=== PATIENT | male | born 1955 | race Caucasian/White ===

== ENCOUNTER 2019-08-28 20:52 | Emergency (ER) | payer OTHER, SELFPAY ==
[2019-08-28 21:23] VITALS: BP 138/86; PULSE 94; RESP 18; TEMP 36.6; O2SAT 95; BMI 28.5
[2019-08-28 22:44] LABS: Basophils # 0.1 10^3/uL (0.0-0.1); Basophils % 0.5 %; Eosinophils # 0.2 10^3/uL (0.0-0.8); Eosinophils % 2.4 %; Hematocrit 37.8 % (42.0-52.0); Hemoglobin 12.8 g/dL (11.7-16.6); Lymphocytes # 2.1 10^3/uL (0.8-4.8); Lymphocytes % 20.9 %; Mean Corpuscular HGB Conc 33.9 g/dL (30.0-36.0); Mean Corpuscular Hemoglobin 29.6 pg (28.0-34.0); Mean Corpuscular Volume 87.3 fL (80-94); Mean Platelet Volume 10.5 fL (7.4-10.4); Monocytes # 0.7 10^3/uL (0.2-0.9); Monocytes % 6.8 %; Neutrophils # 6.8 10^3/uL (1.8-7.7); Neutrophils % 69.1 %; Nucleated Red Blood Cells % 0 %; Platelet Count 216 10^3/cmm (130-400); Red Blood Count 4.33 10^6/uL (4.1-5.3); Red Cell Distribution Width 13.4 % (12.1-15.1); White Blood Count 9.9 10^3/uL (4.0-10.0)
[2019-08-28 22:45] LABS: Add RBC Morph No
[2019-08-28 23:02] LABS: Alanine Aminotransferase 23 U/L (0-41); Albumin Level 4.7 g/dL (3.5-5.2); Alkaline Phosphatase 76 IU/L (40-130); Anion Gap 18.7 (5-19); Aspartate Amino Transferase 21 U/L (0-40); Blood Urea Nitrogen 19 mg/dL (8-23); Calcium 10.1 mg/Dl (8.8-10.2); Carbon Dioxide 26 mmol/L (22-29); Chloride 101 mmol/L (98-107); Globulin 2.9 g/dL (1.3-4.6); Glomerular Filtration Rate 85.2 mL/min (90-130); Glucose 123 mg/dL (74-106); Potassium 3.7 mmol/L (3.5-5.1); Sodium 142 mmol/L (136-145); Total Bilirubin 0.3 mg/dL (0.15-1.2); Total Protein 7.6 g/dL (6.6-8.7)
--- NOTE | 2019-08-29 00:04 | ED_ITS ---
HPI - General Adult General: Chief complaint: General Medical, Adult Stated complaint: POSS OD Time Seen by Provider: 08/29/19 00:03 History of Present Illness: MD complaint: pt c/o pain in back, has rx of hydromorhone and he shot it up today, wor Associated symptoms: Deny chest pain, dyspnea, headache(s), nausea, rash or vomiting Review of Systems Const: Denies: fever, chills or body aches Eyes: Denies: change in vision or blurry vision ENMT: Denies: throat pain or nasal congestion Card: Denies: chest pain or shortness of breath on exertion Resp: Denies: shortness of breath, productive cough or non-productive cough GI: Denies: abdominal pain, nausea or vomiting : Denies: difficulty urinating Musc: Reports: back pain; Denies: extremity pain Skin/Breast: Denies: rash Neuro: Denies: headache Psych: Denies: anxiety or depression Rajiv/Lymph: Denies: easy bruising PFSH ED PFSH: Statuses (acute, chronic, etc) shown below reflect problem list status as previously entered and may not be historically accurate Social History Smoking and tobacco status: never smoked Physical Exam Const: COMMON NORMALS: no apparent distress, average body habitus and oriented x3 HENMT: COMMON NORMALS: normocephalic HEAD & SCALP: normal to inspection and normocephalic FACE & SINUS: normal facial exam Eye: COMMON NORMALS: conjunctivae normal GENERAL EYE: normal appearance of both eyes CONJUNCTIVA: Yes conjunctivae normal Neck/C-Spine: COMMON NORMALS: no JVD Chest: COMMONS NORMALS: inspection of chest normal Resp: COMMON NORMALS: normal respiratory effort and clear to auscultation bilaterally AUSCULTATION: clear to auscultation bilaterally Cardio: COMMON NORMALS: no JVD; negative for regular rate and negative for regular rhythm RATE: abnormal rate RHYTHM: abnormal rhythm and abnormal rhythm GI: COMMON NORMALS: normal to inspection, nondistended, normoactive bowel sounds Extremity: COMMON NORMALS: normal to inspection and full ROM Neuro: COMMON NORMALS: oriented x3 Course Vital Signs: Vital signs: Vital Signs Temperature 97.8 F 08/28/19 21:23 Pulse Rate 79 08/29/19 00:20 Respiratory Rate 16 08/29/19 00:20 Blood Pressure 143/93 08/29/19 00:20 Pulse Oximetry 97 08/29/19 00:20 [facility] - General Adult Lab Data: Labs: Lab Results 08/28/19 08/28/19 Range/Units 22:33 22:33 WBC 9.9 (4.0-10.0) 10^3/ uL RBC 4.33 (4.1-5.3) 10^6/u L Hgb 12.8 (11.7-16.6) g/dL Hct 37.8 L (42.0-52.0) % MCV 87.3 (80-94) fL MCH 29.6 (28.0-34.0) pg MCHC 33.9 (30.0-36.0) g/dL RDW 13.4 (12.1-15.1) % Plt Count 216 (130-400) 10^3/c mm MPV 10.5 H (7.4-10.4) fL Neut % (Auto) 69.1 % Lymph % (Auto) 20.9 % [place] % (Auto) 6.8 % Eos % (Auto) 2.4 % Baso % (Auto) 0.5 % Neut # (Auto) 6.8 (1.8-7.7) 10^3/u L Lymph # (Auto) 2.1 (0.8-4.8) 10^3/u L [place] # (Auto) 0.7 (0.2-0.9) 10^3/u L Eos # (Auto) 0.2 (0.0-0.8) 10^3/u L Baso # (Auto) 0.1 (0.0-0.1) 10^3/u L Nucleated RBC % (a uto) 0 % Nucleated RBCs # 0.0 /100WBC Sodium 142 (136-145) mmol/L Potassium 3.7 (3.5-5.1) mmol/L Chloride 101 (98-107) mmol/L Carbon Dioxide 26 (22-29) mmol/L Anion Gap 18.7 (5-19) BUN 19 (8-23) mg/dL Creatinine 0.9 (0.7-1.2) mg/dL GFR Calculation 85.2 L (90-130) mL/min Glucose 123 H (74-106) mg/dL Calcium 10.1 (8.8-10.2) mg/Dl Total Bilirubin 0.3 (0.15-1.2) mg/dL AST 21 (0-40) U/L ALT 23 (0-41) U/L Alkaline Phosphata se 76 (40-130) IU/L Total Protein 7.6 (6.6-8.7) g/dL Albumin 4.7 (3.5-5.2) g/dL Globulin 2.9 (1.3-4.6) g/dL Discharge Plan Discharge Patient Disposition: Home, Self-Care Condition: Stable Prescriptions: No Action hydromorphone 2 mg Tablet 2 mg PO DAILY RF: 0 Referrals: Chau Holloway DO [Primary Care Provider] - Discharge Diet: Usual diet Discharge Activity: Resume usual activity Patient Instructions: Narcotic Abuse (ED) Activity Restrictions/Additional Instructions: do not inject hydromorphone into veins or body Coding Level of Care Code ED Drug Abuse Resistance Education Officer for Leonila Aparicio Exam Problem Focused
--- NOTE | 2019-08-29 00:08 | ECG_ITS ---
Measurements Intervals [place] Rate: 76 P: 67 WI: 206 QRS: 82 QRSD: 97 T: 51 QT: 414 QTc: 466 SINUS RHYTHM WITH FREQUENT VENTRICULAR PREMATURE COMPLEXES ABNORMAL RHYTHM ECG Compared to ECG 12/16/2018 11:23:09 Ventricular premature complex(es) now present Sinus bradycardia no longer present Prolonged QT interval no longer present Electronically Signed On 08-29-2019 6:45:53 BOTTLE PACKER by Estrella Coleman M.D. [email or web address]
[2019-08-29 00:20] VITALS: BP 143/93; PULSE 79; RESP 16; O2SAT 97
[2019-08-29 00:32] VITALS: BP 140/80; PULSE 76; RESP 18; TEMP 37; O2SAT 98
== END 2019-08-29 00:35 | disposition home or self-care (01) ==
PROVIDERS: Emergency Provider Nurse Practitioner Family; Family Provider Emergency Medicine Emergency Medical Services; PCP Emergency Medicine Emergency Medical Services
DX: M54.9 Dorsalgia, unspecified (principal); F11.10 Opioid abuse, uncomplicated
CPT/HCPCS: 36415; 80053; 85025; 93005; 99281

== ENCOUNTER 2019-08-29 10:35 | Outpatient (CLI) | payer OTHER, SELFPAY ==
--- NOTE | 2019-08-29 10:45 | XR_ITS ---
WS: [id number] CERVICAL SPINE 2 VIEWS HISTORY: Cervical fusion. COMPARISON: 07/30/2019 Anterior cervical fusion with interbody spacer at C3-4 similar in appearance to the prior study. No l ucency around the hardware or displacement. No subsidence. Mild straightening of the normal cervical lordosis. Cervical osteophytes are stable. Soft tissues are normal. XR/XR cervical spine 2V* [id number] IMPRESSION: Stable anterior cervical fusion with interbody spacer at C3-4.
== END 2019-08-29 10:36 | disposition home or self-care (01) ==
LOC: WPI 10:39
PROVIDERS: Family Provider Emergency Medicine Emergency Medical Services; PCP Emergency Medicine Emergency Medical Services; Visit Provider Licensed Practical Nurse
DX: Z98.1 Arthrodesis status (principal)
CPT/HCPCS: 72040

== ENCOUNTER 2019-09-13 10:18 | Day surgery (SDC) | payer OTHER, SELFPAY ==
[2019-09-13 10:37] VITALS: BP 134/91; PULSE 106; RESP 18; TEMP 36.6; O2SAT 99
[2019-09-13 10:38] VITALS: BMI 28.2
[2019-09-13] MEDS: sodium chloride 0.9% 1,000 ML 30 ML IV (11:03)
--- NOTE | 2019-09-13 11:56 | ANES.PREANES ---
Pre-Anesthetic Assessment Pre-Anesthetic Assessment: Height/Weight: Height 1.83 m Weight 94.347 kg Temp Pulse Resp BP Pulse Ox 97.9 F 106 H 18 134/91 99 09/13/19 10:37 09/13/19 10:37 09/13/19 10:37 09/13/19 10:37 09/13/19 10:37 Preop Diagnosis: Left ankle exostosis Proposed Procedure: Operation Date: 09/13/19 12:00 Proposed Procedures p Exostectomy Left ankle(Left) - Crow Sanches DPM Last intake: Intake Last Liquid Date 09/12/19 Last Solid Date 09/12/19 Exam: Pre-Anes Outpt Exam: alert and oriented x 3 Airway: Submandibular: WNL Cervical ROM: Other MP: 2 Additional comments: poor dentition CV/HEM: CV/HEM: Afib, Arrythmia and HTN Comments: 20 years A-fib 08/15 medically cardioverted stress test negative GI: GI: GERD Comments: well controlled Musc/skel: Musc/skel: Lower Back Pain Comments: left radiculopathy Neuropsych: Neuropsych: Anxiety Meds/Allergies Current Medications: Current Medications Generic Name Dose Route Start Last Admin Trade Name Freq PRN Reason Stop Dose Admin Sodium Chloride 1,000 mls @ 30 ml s/hr 09/13/19 10:45 09/13/19 11:03 Sodium Chloride 0.9% IV 09/14/19 10:44 30 mls/hr .Q24H ANTONIO Administration PFSH Anesthesia PFSH: Medical History (Updated 09/12/19 @ 20:03 by Crow Sanches DPM) Anxiety (Acute) Back pain (Acute) Depressive disorder (Acute) Diabetes (Acute) Hypertension (Acute) Neck pain (Acute) Surgical History Post-operative state (Chronic) 07/18/2019 C3-C4 ACDFF Status post cervical spinal fusion (Chronic) 07/18/2019 C3-C4 ACDFF Social History Smoking and tobacco status: never smoked Alcohol intake: current Alcohol type: beer Household members: spouse Marital status: Current occupational status: disabled Data Anesthesia Cardiac Studies: No Data to Display
[2019-09-13 13:08] VITALS: BP 114/79; PULSE 70; RESP 18; TEMP 36.6; O2SAT 96
[2019-09-13 13:38] VITALS: BP 121/84; PULSE 88; RESP 18; O2SAT 98
--- NOTE | 2019-09-15 12:28 | P.OP_ITS ---
Operative Report Date of procedure: 09/15/19 Pre-op Diagnosis: Left ankle exostosis Post-op diagnosis: same Procedure Done: Left distal fibula exostectomy CPT 80313 Implants: None Specimens removed/disposition: None Pathology: none sent Surgeon: Crow Sanches Cook Cold Meat: Olivia Anesthesia: MAC Estimated blood loss (mL): 2 IV fluids (mL): 0 Urine output (mL): 0 Complications: None Findings: Significant bony exostosis left distal fibula. Condition: stable Disposition: PACU Brief History: See preoperative H&P Procedure: Under mild sedation the patient was brought to the operating room and placed on the operating table in supine position. A timeout was performed. Anesthesia was administered by the anesthesia service. Local anesthesia was injected by myself consisting of a proximal field block utilizing 0.5% Marcaine plain total of 20 cc left lateral leg. Well-padded pneumatic tourniquet was applied high calf left. Left lower extremity was then scrubbed, prepped and draped utilizing normal aseptic technique. Left lower extremity was then examined a weighted with a Esmarch bandage and the tourniquet was inflated to 250 mmHg. Attention was directed to the left lateral distal fibula where a impressive bony exostosis was both visualized and palpated. At the distal fibula directly over the exostosis a linear longitudinal incision was made with a #15 blade. Dissection was carried down through subcutaneous tissue utilizing a combination of blunt and sharp technique. Care was taken to retract and preserve neurovascular and tendinous structures. Bleeders were ligated and cauterized as necessary. Periosteal incision was made revealing enthesophytes, chondral bodies and exostosis at the left distal fibula which was impressive both at the anterior extending at the inferior and posterior borders of the distal fibula. Multiple bodies were noted to be loose these were sharply excised and passed from the operative field. Utilizing a bone rondure the distal fibula was recontoured to its normal anatomy and removed of all bony exostosis and hypertrophic growth. Utilizing direct palpation and direct visualization I was satisfied with the remodeling of the distal fibula with no remaining osseous prominences and normal anatomy reestablished. Incision site was flushed with copious amounts of sterile saline solution. Bone wax applied directly to the distal fibula at the lateral wall. Periosteal and deep structures were closed with 3-0 Vicryl. Subcutaneous tissue closed with 4-0 Vicryl. Skin closed with 4-0 nylon. Adaptic, 4 x 4's, Kerlix and Taiwo wrap were applied as dressings. Cam boot was applied this was patient's personal cam boot which he brought with him to surgery today. Tourniquet was deflated and a prompt hyperemic response was noted to the distal digits of the left foot. Patient tolerated the procedure well and was transferred to the PACU with vital signs stable and vascular status intact. Following a period of post operative monitoring he will be discharged home he may be weightbearing as tolerated however advised to decrease his activity and elevate his left foot while at rest. He is to keep his postoperative dressings clean, dry and intact until his follow-up visit in 1 week at podiatry clinic on August 20. Patient given a prescription for oxycodone 10 mg to be taken as needed every 4-6 hours for pain. He was informed that he will need to disclose this to his pain management clinic and provider in [facility].
== END 2019-09-13 14:20 | disposition home or self-care (01) ==
PROVIDERS: Family Provider Emergency Medicine Emergency Medical Services; PCP Emergency Medicine Emergency Medical Services; Visit Provider Podiatrist Foot & Ankle Surgery
PROC: (CPT 28288; principal; 2019-09-13 12:00)
DX: M89.8X7 Other specified disorders of bone, ankle and foot (principal); Z79.891 Long term (current) use of opiate analgesic; F41.9 Anxiety disorder, unspecified; I10 Essential (primary) hypertension; E11.9 Type 2 diabetes mellitus without complications; F32.9 Major depressive disorder, single episode, unspecified; Z98.1 Arthrodesis status; I48.91 Unspecified atrial fibrillation; K21.9 Gastro-esophageal reflux disease without esophagitis
CPT/HCPCS: 27641; 12345; 96365; J0690; J2001; J2704; J3010; J3490; J7030

== ENCOUNTER 2019-10-08 14:58 | Outpatient (CLI) | payer OTHER, SELFPAY ==
--- NOTE | 2019-10-08 15:20 | CT_ITS ---
WS: [id number] CT CERVICAL SPINE HISTORY: S/P CERVICAL SPINAL FUSION TECHNIQUE: Contiguous 2.5 mm axial imaging performed through the entire cervical spine. Sagittal and coronal reformats also performed. All CT scans at [facility] use at least one of these do se optimization techniques: automated exposure control; mA and/or kV adjustment per patient size (inc ludes targeted exams where dose is matched to clinical indication); or iterative reconstruction. DLP: 1894.88 mGycm COMPARISON: 04/30/2019 Straightening of the normal cervical lordosis with anterior cervical fusion at C3-4 interbody spacer. No lucency or hardware failure. Disc height is preserved at C3-4. C2-C3: Mild osteophytic ridging without stenosis. RIGHT facet joint bony fusion. C3-C4: Osteophytic ridging and facet arthropathy. Moderate bilateral foraminal stenosis. C4-C5: Severe facet joint arthropathy on the LEFT with severe LEFT foraminal narrowing. C5-C6: Bilateral facet joint arthropathy with only mild foraminal narrowing. C6-C7: Osteophytic ridging with mild central foraminal narrowing. C7-T1: Mild osteophytic ridging with mild foraminal narrowing. Lung apices are clear. CT/CT cervical spin wo con* [id number] IMPRESSION: 1. Interval anterior cervical fusion with interbody spacer at C3-4. Disc space height is restored. 2. Bony fusion across the RIGHT C2-3 facet joint. 3. Multilevel foraminal stenoses as above. Similar to prior studies.
== END 2019-10-08 14:59 | disposition home or self-care (01) ==
LOC: RADWPI 15:05
PROVIDERS: PCP Emergency Medicine Emergency Medical Services; Visit Provider Licensed Practical Nurse
DX: Z98.1 Arthrodesis status (principal); M48.00 Spinal stenosis, site unspecified
CPT/HCPCS: 72125

== ENCOUNTER → 2019-10-17 13:49 | Outpatient (BNVA) | payer OTHER, SELFPAY | PROVIDERS: Family Provider Emergency Medicine Emergency Medical Services; PCP Emergency Medicine Emergency Medical Services; Visit Provider Psychiatry & Neurology Psychiatry | DX: F41.1 Generalized anxiety disorder (principal); F33.1 Major depressive disorder, recurrent, moderate; F14.21 Cocaine dependence, in remission; F12.21 Cannabis dependence, in remission | CPT/HCPCS: 99204 ==

== ENCOUNTER 2019-10-18 08:34 | Outpatient (CLI) | payer OTHER, SELFPAY ==
--- NOTE | 2019-10-18 08:45 | MR_ITS ---
WS: [id number] MRI CERVICAL SPINE NONCONTRAST TECHNIQUE: Sagittal T1, T2 and STIR imaging. Axial T2, gradient, and fiesta imaging. CLINICAL INFORMATION: cervical pain COMPARISON: CT October 08, 2019 FINDINGS: Straightening of the normal cervical lordosis. Anterior cervical fusion C3-C4 with interbody fusion. C2-C3: Mild right and no significant left foraminal narrowing. Mild facet arthropathy. Spinal canal i s patent. C3-C4: Anterior interbody cervical fusion. Moderate left greater than right bony foraminal narrowing. Mild facet arthropathy. Central canal is patent. C4-C5: Minimal disc bulging with osteophytic ridging. Advanced left facet arthropathy. Moderate to se fermin left and moderate right bony foraminal narrowing. Spinal canal is patent. C5-C6: Minimal disc bulging. Moderate to advanced left facet arthropathy. Moderate left and mild righ t bony foraminal narrowing. Spinal canal is patent. C6-C7: Mild disc osteophyte complex with endplate ridging. Mild left and no significant right foramin al narrowing. Mild/moderate facet arthropathy. Spinal canal is patent. C7-T1: No significant disc bulging. Spinal canal is patent. Mild left and no significant right forami nal narrowing. T1-T2: Normal. Visualized brain stem structures: Normal. Prevertebral soft tissues: Normal. MR/MR cervical spin wo con* [id number] IMPRESSION: 1. Straightening of the normal cervical lordosis. Anterior interbody cervical fusion C3-C4. 2. No significant central canal stenosis. 3. Moderate bony foraminal narrowing worse at left C3-C4, left C4-C5, left C5- C6. 4. Moderate to advanced facet arthropathy left C4-C5 and left C5-C6.
== END 2019-10-18 08:35 | disposition home or self-care (01) ==
LOC: RADSHAW 08:37
PROVIDERS: Family Provider Emergency Medicine Emergency Medical Services; PCP Emergency Medicine Emergency Medical Services; Visit Provider Specialist
DX: Z98.1 Arthrodesis status (principal)
CPT/HCPCS: 72141

== ENCOUNTER 2019-11-07 08:03 | Outpatient (CLI) | payer OTHER, SELFPAY ==
--- NOTE | 2019-11-07 08:00 | MR_ITS ---
WS: [id number] MRI RIGHT SHOULDER NONCONTRAST TECHNIQUE: Sagittal T2, coronal T1, T2 and proton density imaging. Axial gradient PDE imaging. CLINICAL INFORMATION: shoulder pain FINDINGS: Moderate degenerative arthritis AC joint with evidence of prior postoperative changes and resection o f the distal clavicle. Mild downsloping of the acromion. Mild narrowing of the subacromial space. Sma ll undersurface tear measuring 4 mm at the supraspinatus insertion. Additional T2 signal abnormality with tendinopathy involving the infraspinatus. Tiny intrasubstance tear involving the infraspinatus d istally. No full-thickness tears. Normal teres minor. Biceps tendon in the bicipital groove. T2 signal abnormality involving the distal subscapularis tendon and long head of the biceps tendon as it enters the bicipital groove consistent with partial intrasubstance tear. Tendinopathy in the rotator interval with T2 signal abnormality. B iceps labral anchor appears intact. Degenerative fraying of the glenoid labrum which appears grossly intact. Blunting of the axillary rec ess cannot be seen with adhesive capsulitis. Recommend clinical correlation MR/MR shoulder RT wo con* [id number] IMPRESSION: 1. Small undersurface partial-thickness tear of the supraspinatus insertion me asuring 4 mm. 2. Intrasubstance tear with tendinopathy involving the distal infraspinatus. 3. No full-thickness rotator cuff tears. 4. Partial intrasubstance tear involving the distal subscapularis tendon and l deandre head of the biceps tendon as it enters the bicipital groove with tendinopat hy along the rotator interval. 5. Glenoid labrum appears grossly intact. 6. Subjective small glenohumeral joint capsule with thickening of the axillary recess can be seen with adhesive capsulitis in appropriate clinical setting. 7. Evidence of postoperative changes involving the AC joint with resection dis cher clavicle.
== END 2019-11-07 08:04 | disposition home or self-care (01) ==
LOC: RADSHAW 08:05
PROVIDERS: Family Provider Emergency Medicine Emergency Medical Services; PCP Emergency Medicine Emergency Medical Services; Visit Provider Specialist
DX: M75.101 Unspecified rotator cuff tear or rupture of right shoulder, not specified as traumatic (principal); M25.511 Pain in right shoulder; Z98.1 Arthrodesis status
CPT/HCPCS: 73221

== ENCOUNTER → 2019-11-12 15:46 | Outpatient (BNVA) | payer OTHER, SELFPAY | PROVIDERS: Family Provider Emergency Medicine Emergency Medical Services; PCP Emergency Medicine Emergency Medical Services; Visit Provider Internal Medicine Cardiovascular Disease | DX: I11.0 Hypertensive heart disease with heart failure (principal); I50.33 Acute on chronic diastolic (congestive) heart failure; R60.9 Edema, unspecified; R06.02 Shortness of breath; R07.9 Chest pain, unspecified; I48.91 Unspecified atrial fibrillation; Z79.01 Long term (current) use of anticoagulants; E11.65 Type 2 diabetes mellitus with hyperglycemia; F41.1 Generalized anxiety disorder | CPT/HCPCS: 80048; 83880; 85025 ==

== ENCOUNTER → 2019-11-28 13:00 | Outpatient (BNVA) | payer OTHER, SELFPAY | PROVIDERS: Family Provider Emergency Medicine Emergency Medical Services; PCP Emergency Medicine Emergency Medical Services; Visit Provider Psychiatry & Neurology Psychiatry | DX: F41.1 Generalized anxiety disorder (principal); F33.1 Major depressive disorder, recurrent, moderate; F12.21 Cannabis dependence, in remission; F14.21 Cocaine dependence, in remission | CPT/HCPCS: 99213 ==

== ENCOUNTER → 2019-12-25 08:43 | Outpatient (BNVA) | payer OTHER, SELFPAY | PROVIDERS: Family Provider Emergency Medicine Emergency Medical Services; PCP Emergency Medicine Emergency Medical Services; Visit Provider Podiatrist Foot & Ankle Surgery | DX: M25.572 Pain in left ankle and joints of left foot (principal) | CPT/HCPCS: 73610 ==

== ENCOUNTER 2019-12-25 10:57 | Outpatient (CLI) | payer OTHER, SELFPAY | END 2019-12-25 10:58 | disposition home or self-care (01) | LOC: SPT 10:58 | PROVIDERS: Family Provider Emergency Medicine Emergency Medical Services; PCP Emergency Medicine Emergency Medical Services; Visit Provider Podiatrist Foot & Ankle Surgery | DX: Z46.89 Encounter for fitting and adjustment of other specified devices (principal); S93.402A Sprain of unspecified ligament of left ankle, initial encounter; X58.XXXA Exposure to other specified factors, initial encounter | CPT/HCPCS: L1902 ==

== ENCOUNTER → 2020-01-13 08:39 | Outpatient (BNVA) | payer OTHER, SELFPAY | PROVIDERS: Family Provider Emergency Medicine Emergency Medical Services; PCP Emergency Medicine Emergency Medical Services; Referring Provider Specialist; Visit Provider Specialist | DX: M25.511 Pain in right shoulder (principal); M25.512 Pain in left shoulder; M19.012 Primary osteoarthritis, left shoulder | CPT/HCPCS: 73030 ==

== ENCOUNTER 2020-01-24 07:50 | Outpatient (CLI) | payer OTHER, SELFPAY ==
--- NOTE | 2020-01-24 08:00 | MR_ITS ---
WS: [id number] MRI LEFT SHOULDER HISTORY: M19.011 Primary osteoarthritis, right shoulder COMPARISON: Shoulder radiograph 01/13/2020 TECHNIQUE: Multiplanar sequences of the shoulder joint are submitted. Moderate AC joint arthritis. Narrowing of the AC joint with osteophytes developing and extending supe rior and inferior from the joint. There is mild impingement upon the supraspinatus muscle. No marrow edema or acute fracture. 4 mm osteophyte is causing deformity of the superior supraspinatus muscle. N o os acromion. Biceps tendon remains in normal position with a small amount of increased fluid along the tendon sheath. Severe degenerative changes at the glenohumeral joint. There is joint space narrowing with loss of ca rtilage over the humeral head and glenoid and hypertrophic bone formation. Marrow edema involving the superior humeral head but no fracture. Humeral head is slightly high riding and there is significant increased signal in the labrum. Cystic-like changes are noted within the anterior and slightly poste rior labrum. There is additional increased signal extending through the labral bicipital complex. No muscle atrophy or edema. No definite rotator cuff tears are identified. There is significant thick ening and increased signal in the supraspinatus and infraspinatus muscles. Focal tendinopathy and sig nificant increased signal in the distal subscapularis tendon related to an osteophyte from the breonna l head. MR/MR shoulder LT con* [id number] IMPRESSION: 1. Severe glenohumeral joint arthritis with osteophytes and joint space narrow ing and loss of cartilage. Diffusely abnormal labrum. 2. Significant tendinopathy in the distal rotator cuff muscles with no full-th ickness tear is identified. No muscle atrophy. 3. Moderate AC joint arthritis. 4. Tenosynovitis biceps tendon. 5. Focal marrow edema in the superior humeral head but no fracture.
== END 2020-01-24 07:51 | disposition home or self-care (01) ==
LOC: RADSHAW 07:53
PROVIDERS: PCP Emergency Medicine Emergency Medical Services; Visit Provider Specialist
DX: M19.011 Primary osteoarthritis, right shoulder (principal); M25.712 Osteophyte, left shoulder; M65.812 Other synovitis and tenosynovitis, left shoulder; R60.9 Edema, unspecified
CPT/HCPCS: 73221

== ENCOUNTER → 2020-01-29 09:19 | Outpatient (BNVA) | payer OTHER, SELFPAY | PROVIDERS: PCP Emergency Medicine Emergency Medical Services; Visit Provider Specialist | DX: G56.23 Lesion of ulnar nerve, bilateral upper limbs (principal) | CPT/HCPCS: 95910 ==

== ENCOUNTER → 2020-04-07 08:38 | Outpatient (BNVA) | payer OTHER, SELFPAY | PROVIDERS: Family Provider Emergency Medicine Emergency Medical Services; PCP Emergency Medicine Emergency Medical Services; Visit Provider Psychiatry & Neurology Psychiatry | DX: F33.1 Major depressive disorder, recurrent, moderate (principal); F12.21 Cannabis dependence, in remission; F14.21 Cocaine dependence, in remission; F41.1 Generalized anxiety disorder | CPT/HCPCS: 99214 ==

== ENCOUNTER 2020-05-13 14:48 | Outpatient (CLI) | payer OTHER, SELFPAY ==
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
== END 2020-05-13 14:49 | disposition home or self-care (01) ==
PROVIDERS: PCP Emergency Medicine Emergency Medical Services; Visit Provider Emergency Medicine Emergency Medical Services
DX: M54.5 Low back pain (principal); M47.816 Spondylosis without myelopathy or radiculopathy, lumbar region; M48.061 Spinal stenosis, lumbar region without neurogenic claudication; M48.07 Spinal stenosis, lumbosacral region
CPT/HCPCS: 72148

== ENCOUNTER → 2020-06-18 16:05 | Outpatient (BNVA) | payer OTHER, SELFPAY | PROVIDERS: PCP Emergency Medicine Emergency Medical Services; Visit Provider Specialist | DX: M19.011 Primary osteoarthritis, right shoulder (principal) | CPT/HCPCS: 73030 ==

== ENCOUNTER 2020-06-29 09:10 | Outpatient (CLI) | payer OTHER, SELFPAY ==
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
== END 2020-06-29 09:11 | disposition home or self-care (01) ==
LOC: RADSHAW 09:13
PROVIDERS: PCP Emergency Medicine Emergency Medical Services; Visit Provider Specialist
DX: S46.911A Strain of unspecified muscle, fascia and tendon at shoulder and upper arm level, right arm, initial encounter (principal); X58.XXXA Exposure to other specified factors, initial encounter; M19.011 Primary osteoarthritis, right shoulder
CPT/HCPCS: 73221

== ENCOUNTER 2020-07-09 09:11 | Day surgery (SDC) | payer OTHER, SELFPAY ==
[2020-07-08 12:59] VITALS: BMI 27.1
[2020-07-09 09:38] VITALS: BP 106/77; PULSE 63; RESP 18; TEMP 36.5; O2SAT 96
[2020-07-09] MEDS: sodium chloride 0.9% 1,000 ML 30 ML IV (10:00)
--- NOTE | 2020-07-09 10:02 | ANES.PREANE2 ---
Pre-Anesthetic Assessment Pre-Anesthetic Assessment: Height/Weight: Height 1.83 m Weight 90.718 kg Temp Pulse Resp BP Pulse Ox 97.7 F 63 18 106/77 96 07/09/20 09:38 07/09/20 09:38 07/09/20 09:38 07/09/20 09:38 07/09/20 09:38 Preop Diagnosis: Right long finger trigger finger Proposed Procedure: Operation Date: 07/09/20 11:55 Proposed Procedures p Trigger Finger Release right long [id number] M65.331(Right) - Fidencio Moralse MD Familial anesthetic complications: None Was Beta Gregory taken within 24 hours: Yes Last intake: Intake Last Liquid Date 07/08/20 Last Liquid Time 20:00 Last Solid Date 07/08/20 Last Solid Time 20:00 Social: Social History: No alcohol and No tobacco Exam: Pre-Anes Outpt Exam: alert, oriented x 3, clear to auscultation bilaterally and regular rate & rhythm Airway: Cervical ROM: WNL MP: 3 Dentition: Full CV/HEM: CV/HEM: Afib and HTN Comments: echo 09/11 EF 60^, Stress test 09/11 no ischemia, cath 06/11 no significant stenosis, Event monitor A fib w/ RVR Patient is on eliquis GI: GI: GERD Metabolic: Metabolic: DM Anesthetic Plan: ASA status: 3 Anesthesia: MAC and Regional (specify below) Other: john block Risk of > 500 ml blood loss (7ml/kg in children): No PFSH Anesthesia PFSH: Medical History Anxiety Back pain Depressive disorder Diabetes Edema, peripheral Foraminal stenosis of cervical region Hypertension Neck pain New onset atrial fibrillation Shoulder pain, bilateral Surgical History Status post cervical spinal fusion 07/18/2019 C3-C4 ACDFF Family History Other Cancer Stroke Social History Smoking and tobacco status: never smoked Alcohol intake: current Alcohol type: beer Household members: spouse Marital status: Current occupational status: disabled History of recent travel: No Data Anesthesia Cardiac Studies: No Data to Display
--- NOTE | 2020-07-09 10:44 | W.PM.OPSUD ---
Surgery/Procedure H&P Update DATE OF PROCEDURE: July 09, 2020 DATE H&P PERFORMED: 06/23/20 PREOP DIAGNOSIS: Right long finger trigger finger PLANNED PROCEDURE: Operation Date: 07/09/20 11:55 Proposed Procedures p Trigger Finger Release right long 87018 M65.331(Right) - Fidencio Morales MD
[2020-07-09 11:27] VITALS: BP 117/68; PULSE 96; RESP 18; TEMP 36.2; O2SAT 97
--- NOTE | 2020-07-09 11:27 | P.OP_ITS ---
Operative Report Date of procedure: July 09, 2020 Pre-op Diagnosis: Right long finger trigger finger Post-op diagnosis: same Post-op Findings: Same Procedure Done: Right long finger trigger finger release Pathology: none sent Surgeon: Fidencio Morales Anesthesia: Nerve Block ([place] block) Estimated blood loss (mL): 2 Tourniquet time (min): 20 Findings: No abnormalities was seen in the flexor tendons at the level of the A1 andi Condition: stable Disposition: PACU Procedure: The patient's hand was prepped in the usual fashion. A timeout was performed. I transverse incision was made over the level of a 1 andi in the palm over a distance of approximately a centimeter and a half. Under loupe magnification blunt dissection was accomplished down to the A1 andi. With adequate visualization a scalpel was used to divide the central 8 mm of that structure. Blunt scissors were then used to extend the release approximately 5 mm proximally and 5 mm distally. Tendons were pulled the road and inspected to assure there health. Skin edges were infiltrated with 4 cc of 0.5%n Marcaine. The skin edges were closed with 3-0 Prolene compressive dressings were applied.
[2020-07-09 11:45] VITALS: BP 119/82; PULSE 97; RESP 18; TEMP 36.2; O2SAT 97
--- NOTE | 2020-07-09 20:19 | ANE.PACU2 ---
Inpatient post-anesthesia follow up: Airway intact: Yes Vital signs: Temperature 97.1 F Pulse Rate 97 Respiratory Rate 18 Blood Pressure 119/82 Pulse Oximetry 97 Oxygen Delivery Me thod Room Air Oxygen Flow Rate Fraction of Inspir ed Oxygen Hydration adequate: Yes Nausea and vomiting: No Pain level: 1 Mental status: Baseline
== END 2020-07-09 12:15 | disposition home or self-care (01) ==
PROVIDERS: PCP Emergency Medicine Emergency Medical Services; Visit Provider Orthopaedic Surgery
PROC: (CPT 26055; principal; 2020-07-09 11:45)
DX: M65.331 Trigger finger, right middle finger (principal); I10 Essential (primary) hypertension; I48.91 Unspecified atrial fibrillation; E11.9 Type 2 diabetes mellitus without complications; K21.9 Gastro-esophageal reflux disease without esophagitis; Z79.01 Long term (current) use of anticoagulants
CPT/HCPCS: 26055; 12345; 96365; J0690; J2250; J2704; J3490; J7030

== ENCOUNTER → 2020-07-16 11:01 | Outpatient (BNVA) | payer OTHER, SELFPAY | PROVIDERS: PCP Emergency Medicine Emergency Medical Services; Visit Provider Specialist | DX: Z11.59 Encounter for screening for other viral diseases (principal); M75.41 Impingement syndrome of right shoulder | CPT/HCPCS: 87635 ==

== ENCOUNTER 2020-07-21 05:38 | Day surgery (SDC) | payer OTHER, SELFPAY ==
[2020-07-20 10:17] VITALS: BMI 26.8
[2020-07-21] VITALS (7 sets, daily range): BP systolic 105–131; BP diastolic 66–90; PULSE 90–114; RESP 10–21; TEMP 36.1–36.5; O2SAT 90–98
[2020-07-21] MEDS: sodium chloride 0.9% 1,000 ML 30 ML IV (06:10)
[2020-07-21] MEDS: CELEcoxib 200 mg Capsule 400 MG PO (06:13)
[2020-07-21 06:15] LABS: Basophils # 0.1 10^3/uL (0.0-0.1); Basophils % 0.9 %; Eosinophils # 0.2 10^3/uL (0.0-0.8); Eosinophils % 2.1 %; Hematocrit 42.5 % (42.0-52.0); Hemoglobin 13.5 g/dL (11.7-16.6); Lymphocytes # 2.1 10^3/uL (0.8-4.8); Lymphocytes % 27.6 %; Mean Corpuscular HGB Conc 31.8 g/dL (30.0-36.0); Mean Corpuscular Hemoglobin 30.6 pg (28.0-34.0); Mean Corpuscular Volume 96.4 fL (80-94); Mean Platelet Volume 10.1 fL (7.4-10.4); Monocytes # 0.6 10^3/uL (0.2-0.9); Monocytes % 7.3 %; Neutrophils # 4.69 10^3/uL (1.8-7.7); Neutrophils % 61.8 %; Nucleated Red Blood Cells % 0 %; Platelet Count 198 10^3/cmm (130-400); Red Blood Count 4.41 10^6/uL (4.1-5.3); Red Cell Distribution Width 14.6 % (12.1-15.1); White Blood Count 7.6 10^3/uL (4.0-10.0)
[2020-07-21 06:31] LABS: Alanine Aminotransferase 25 U/L (0-41); Albumin Level 4.1 g/dL (3.5-5.2); Alkaline Phosphatase 76 IU/L (40-130); Blood Urea Nitrogen 16 mg/dL (8-23); Calcium 8.9 mg/dL (8.5-10.5); Carbon Dioxide 21 mmol/L (22-29); Chloride 107 mmol/L (98-107); Globulin 2.7 g/dL (1.3-4.6); Glomerular Filtration Rate 135.6 mL/min (90-130); Glucose 136 mg/dL (65-115); Osmolality Calculated 293 mOsm/kg (285-295); Sodium 140 mmol/L (136-145); Total Bilirubin 0.2 mg/dL (0.15-1.2); Total Protein 6.8 g/dL (6.6-8.7)
[2020-07-21] MEDS: midazolam 1 mg/mL INJ 5 ML 5 MG IVP (06:32)
[2020-07-21 06:35] LABS: Add Urine Microscopic? NO
[2020-07-21 06:37] LABS: Anion Gap 16.3 (5-19); Aspartate Amino Transferase 23 U/L (0-40); Potassium 4.3 mmol/L (3.5-5.1)
[2020-07-21 06:38] LABS: Bilirubin Urine Neg (Negative); Blood Urine Neg (Negative); Glucose Urine UA Norm (Normal); Ketones Urine Negative (Negative); Leukocyte Esterase Urine Negative (Negative); Nitrate Urine Negative (Negative); Protein Urine Neg (Negative); Urine Appearance Clear (CLEAR); Urine Color Yellow (Yellow); Urobilinogen Urine Norm (Negative); pH Urine 5 (5-7)
[2020-07-21] MEDS: vancomycin 1,000 MG in sodium chloride 0.9% 250 ML 250 MG IV (06:40)
--- NOTE | 2020-07-21 06:43 | P.ANESASSM_ITS ---
Pre-Anesthetic Assessment Pre-Anesthetic Assessment: Height/Weight: Height 1.83 m Weight 89.811 kg Temp Pulse Resp BP Pulse Ox 97.0 F L 110 H 18 127/81 98 07/21/20 05:51 07/21/20 05:51 07/21/20 05:51 07/21/20 05:51 07/21/20 05:51 Preop Diagnosis: Right rotator cuff tear with impingement Proposed Procedure: Operation Date: 07/21/20 07:00 Proposed Procedures p open Acromioplasty 12695 M19.011(Right) - Karley Sauceda MD s Rotator Cuff Repair(Right) - Karley Sauceda MD Familial anesthetic complications: None Was Beta Gregory taken within 24 hours: Yes Last intake: Intake Last Liquid Date 07/20/20 Last Liquid Time 21:00 Last Solid Date 07/20/20 Last Solid Time 19:00 Social: Social History: No alcohol and No tobacco Exam: Pre-Anes Outpt Exam: alert, oriented x 3, clear to auscultation bilaterally and regular rate & rhythm Airway: Cervical ROM: WNL MP: 2 Dentition: Full CV/HEM: CV/HEM: Afib and HTN GI: GI: GERD Neuropsych: Neuropsych: 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) Comments: has bone spurs in cervical spine and fusion - patient informed of higher risk of double crush injury Anesthetic Plan: ASA status: 3 Anesthesia: General and Regional (specify below) Risk of > 500 ml blood loss (7ml/kg in children): No Meds/Allergies Current Medications: Current Medications Generic Name Dose Route Start Last Admin Trade Name Freq PRN Reason Stop Dose Admin Sodium Chloride 1,000 mls @ 30 ml s/hr 07/21/20 05:45 07/21/20 06:10 Sodium Chloride 0.9% IV 07/22/20 05:44 30 mls/hr .Q24H ANTONIO Administration PFSH Anesthesia PFSH: Medical History (Updated 07/10/20 @ 12:58 by Karley Sauceda MD) Anxiety Back pain Depressive disorder Diabetes Edema, peripheral Foraminal stenosis of cervical region Hypertension Neck pain New onset atrial fibrillation Shoulder pain, bilateral Surgical History Status post cervical spinal fusion 07/18/2019 C3-C4 ACDFF Family History Other Cancer Stroke Social History Smoking and tobacco status: never smoked Alcohol intake: current Alcohol type: beer Household members: spouse Marital status: Current occupational status: disabled History of recent travel: No Data Anesthesia CBC & Chem 7: 07/21/20 06:06 07/21/20 06:06 Other Labs: Laboratory Results - last 48 hr 07/21/20 07/21/20 07/21/20 06:06 06:06 06:28 WBC 7.6 RBC 4.41 Hgb 13.5 Hct 42.5 MCV 96.4 H MCH 30.6 MCHC 31.8 RDW 14.6 Plt Count 198 MPV 10.1 Neut % (Auto) 61.8 Lymph % (Auto) 27.6 [place] % (Auto) 7.3 Eos % (Auto) 2.1 Baso % (Auto) 0.9 Neut # (Auto) 4.69 Lymph # (Auto) 2.1 [place] # (Auto) 0.6 Eos # (Auto) 0.2 Baso # (Auto) 0.1 Nucleated RBC % (auto) 0 Nucleated RBCs # 0.0 Sodium 140 Potassium 4.3 Chloride 107 Carbon Dioxide 21 L Anion Gap 16.3 BUN 16 Creatinine 0.6 L GFR Calculation 135.6 H Glucose 136 H Calculated Osmolality 293 Calcium 8.9 Total Bilirubin 0.2 AST 23 ALT 25 Alkaline Phosphatase 76 Total Protein 6.8 Albumin 4.1 Globulin 2.7 Urine Color Yellow Urine Appearance Clear Urine pH 5 Ur Specific [place] 1.020 Urine Protein Neg Urine Glucose (UA) Norm Urine Ketones Negative Urine Blood Neg Urine Nitrate Negative Urine Bilirubin Neg Urine Urobilinogen Norm Ur Leukocyte Esterase Negative Cardiac Studies: No Data to Display
--- NOTE | 2020-07-21 06:44 | ANES.PROC ---
Anesthesia Procedures Procedure/Date: 07/21/20 Nerve Block ^: Nerve Block 1: Main Anesthesia: general anesthesia Time Out Performed: Yes Consent: requested by attending/covering physician, from patient, risks and benefits reviewed and patient agrees to proceed Nerve block location: interscalene (R) Anesthesia monitors applied: pulse oximetry, EKG, BP cuff and oxygen Nerve block position: semi sitting Anesthetic Used: ropivicaine 0.5% and with decadron (4 mg) Amount of anesthesia used (mL): 20 Ultrasound used to: recognize landmarks, visualize and ID brachial plexus and visualize and ID interscalene groove Nerve Stimulator Used?: No Interscalene/Femoral BLK: 2 stimuplex 22 g needle used for position and inplane approach, visualize local anesthetic spread and no vascular puncture identified Injection: neg aspiration of heme Patient Tolerated Procedure: well and no complications Complications: none
--- NOTE | 2020-07-21 06:46 | P.HPUD_ITS ---
Surgery/Procedure H&P Update DATE OF PROCEDURE: July 21, 2020 DATE H&P PERFORMED: 07/08/20 H&P UPDATE INFORMATION: I have reviewed H&P completed within last 30 days, I have examined patient prior to procedure, No changes to prior documentation and H&P is in [facility] EMR on date indicated PREOP DIAGNOSIS: Right rotator cuff tear with impingement PLANNED PROCEDURE: Operation Date: 07/21/20 07:00 Proposed Procedures p open Acromioplasty 03305 M19.011(Right) - Karley Sauceda MD s Rotator Cuff Repair(Right) - Karley Sauceda MD Related Problem List Diagnoses (1) Impingement syndrome of right shoulder: (2) Incomplete rotator cuff tear or rupture of right shoulder, not specified as traumatic: (3) Primary osteoarthritis, right shoulder:
[2020-07-21] MEDS: ceFAZolin 1,000 mg SDV 1000 MG IRRIGATION (07:53)
--- NOTE | 2020-07-21 09:17 | SUR.PHASEI ---
0905 PT HAS SENSATION/MOVEMENT TO R. FINGERS, CAP REFILL <3 SEC
--- NOTE | 2020-07-21 09:34 | PM.OP ---
Operative Report Date of procedure: July 21, 2020 Pre-op Diagnosis: Right rotator cuff tear with impingement Post-op Diagnosis: Complete right rotator cuff tear with impingement Post-op Findings: Large complete right rotator cuff tear with impingement Procedure Done: Right rotator cuff repair with acromioplasty and biceps tenodesis Implants: Healicoil 5.5mm Suture [place] with three Ultrabraid #2 Sutures Specimens removed/disposition: None Pathology: none sent Surgeon: Karley Sauceda [employer] Administrator: [facility] OR technicians Anesthesia: General (with block, ASA 3) Estimated blood loss (mL): 25 IV fluids (mL): 700 Urine output (mL): 0 Urine output: No Adams Complications: None Findings: Complete large rotator cuff tear involving the supraspinatus, subscapularis, and infraspinatus tendons. Intact thickened biceps tendon. Condition: stable Disposition: PACU (Then home) Brief History: This 64-year-old gentleman presented with complaints of severe right shoulder pain. MRI demonstrated evidence of rotator cuff tear. The patient was nonresponsive to conservative measures, and he wished to proceed with operative intervention. Risks and complications were discussed with him. Preoperatively, questions were answered and consents were signed. Procedure: The patient was brought to the operating theater and underwent general anesthesia, intubated, ASA 3, with preoperative regional block. The patient was placed in a beachchair position and subsequently the right upper extremity was prepped and draped in the usual fashion utilizing DuraPrep. The arm was draped free. A surgical pause was performed prior to commencement of the surgical procedure. At the time of the surgical pause, we confirmed the site and side of surgery as well as administration of appropriate preoperative antibiotics vancomycin, 1 g. MRI was also reviewed at that time. Following the surgical pause, an incision was made at approximately the level of the mid acromion extending across the anterolateral corner of the acromion and distally as necessary. Care was taken to avoid injury to the axillary nerve by limiting the distal extent of the incision. Dissection continued through skin and soft tissues using a scalpel. Hemostasis was obtained using electrocautery. Soft tissues were elevated off the acromion. An acromioplasty was then accomplished using a combination of a saw and a power rasp. With this, we were able to remove compression caused by the acromion. The rotator cuff was then evaluated to look for tears. Upon evaluation, there was noted to be a large rotator cuff tear which was complete. The rotator cuff tear extended from the subscapularis across the supraspinatus and included a portion of the infraspinatus tendons. This was a very large tear but was able to be brought back into a more normal position. A bursectomy was accomplished. The rotator cuff tear was further evaluated. The edges were freshened using a scalpel. The reattachment point bony on the humeral head was addressed with a Seth to prepare a bed for appropriate repair. Repair was accomplished using the [employer] healicoil 5.5 mm suture anchor with 3 ultrabraids. The tear orientation was noted to be horizontal, but it was slightly above the insertion point. There was rotator cuff remaining on the insertion side. The area of reattachment was freshened with a rongeur as noted, and the suture anchor was placed in the middle of the intended repair. The 3 braided sutures were then passed through the rotator cuff, and we were able to reattach the rotator cuff without significant tension on the repair. Further sutures were placed including 0 Ethibond and 0 Vicryl to smooth the reattachment. Also, biceps tenodesis was accomplished utilizing the 0 Ethibond as well. This was also used to complete repair of the tear where there was a portion of vertical tearing. After the rotator cuff had been thus addressed, the shoulder was placed through further range of motion to assure there was no further evidence of rotator cuff tear and no impingement. Finding no further rotator cuff tear, attention was directed to closure. The wound was irrigated and closure was accomplished with 0 Vicryl in the capsular tissues overlying the acromion and down into the deltoid muscle. 2-0 Monocryl was used to close the subcutaneous tissues followed by 4-0 Monocryl subcuticular closure. This was followed by Exofin, Steri-Strips, Telfa, and Tegaderm. The patient was placed in a sling shot style sling and was returned to the recovery room in satisfactory condition. The patient will be discharged to home to follow-up with me in the office as scheduled. There were no complications and no specimens. Associated Problem List Diagnoses (1) Impingement syndrome of right shoulder: (2) Complete rotator cuff tear or rupture of right shoulder, not specified as traumatic: Qualifiers: Rotator cuff tear trauma status: unspecified whether traumatic Qualified Code(s): M75.121 - Complete rotator cuff tear or rupture of right shoulder, not specified as traumatic
--- NOTE | 2020-07-21 13:34 | ANE.PACU2 ---
Inpatient post-anesthesia follow up: Airway intact: Yes Vital signs: Temperature 97.7 F Pulse Rate 109 Respiratory Rate 18 Blood Pressure 113/72 Pulse Oximetry 92 Oxygen Delivery Me thod Nasal Cannula Oxygen Flow Rate 1 Fraction of Inspir ed Oxygen Hydration adequate: Yes Nausea and vomiting: No Pain level: 2 Mental status: Baseline
== END 2020-07-21 10:20 | disposition home or self-care (01) ==
PROVIDERS: PCP Emergency Medicine Emergency Medical Services; Visit Provider Specialist
PROC: (CPT 23130; principal; 2020-07-21 07:00)
PROC: (CPT 23420; 2020-07-21 07:00)
DX: M75.121 Complete rotator cuff tear or rupture of right shoulder, not specified as traumatic (principal); M75.41 Impingement syndrome of right shoulder; M19.011 Primary osteoarthritis, right shoulder; I48.91 Unspecified atrial fibrillation; I10 Essential (primary) hypertension; K21.9 Gastro-esophageal reflux disease without esophagitis; E11.40 Type 2 diabetes mellitus with diabetic neuropathy, unspecified; F41.9 Anxiety disorder, unspecified
CPT/HCPCS: 23420; 24340; 12345; 36415; 64415; 76942; 80053; 81003; 85025; 96365; 96374; J0131; J0690; J1100; J2250; J2370; J2405; J2710; J2795; J3010; J3370; J3490; J7030; J7050

== ENCOUNTER 2020-10-06 16:53 | Emergency (ER) | payer OTHER, SELFPAY ==
[2020-10-06] VITALS (19 sets, daily range): BP systolic 133–161; BP diastolic 68–113; PULSE 80–147; RESP 10–20; TEMP 36.4; O2SAT 97–100; BMI 25.7
--- NOTE | 2020-10-06 17:08 | ECG_ITS ---
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 Measurements Intervals [place] Rate: 136 P: HI: QRS: 81 QRSD: 92 T: 65 QT: 343 QTc: 516 Interpretive Statements ATRIAL FLUTTER/TACHYCARDIA WITH RAPID VENTRICULAR RESPONSE ST DEPRESSION, CONSIDER SUBENDOCARDIAL INJURY [0.1+ mV ST DEPRESSION] Compared to ECG 08/29/2019 00:20:35 ST (T wave) deviation now present Sinus rhythm no longer present Ventricular premature complex(es) no longer present Electronically Signed On 10-06-2020 19:51:57 [employer]PERATIONS RESEARCH GROUP MANAGER by Jacquelin Lake M.D. [id number]
--- NOTE | 2020-10-06 17:44 | ED_ITS ---
Documented by User: Shahram Walker DO 10/12/20 06:05 HPI - SOB/Dyspnea General: Chief Complaint: Shortness of Breath/Dyspnea Stated Complaint: A FIB RVR Time Seen by Provider: 10/06/20 16:57 History of Present Illness: HPI Narrative: 64-year-old male presents emergency room via EMS complaining of chest discomfort and nausea. He is in A. fib with RVR. He had a couple episodes of vomiting. He has had this in the past. He is short of breath with it as well. He states it began this morning is been persisting throughout the day. MD elicited complaint: shortness of breath and chest pain Pertinent past history: other (afib) Onset (ago): hour(s) Associated symptoms: Deny abdominal pain, chest pain, fever(s), nausea, orthopnea or vomiting Review of Systems Const: Denies: fever(s), chills, body aches, change in appetite, fatigue or malaise ENMT: Denies: throat pain, ear or mastoid pain, nasal discharge or nasal congestion Card: Denies: chest pain, edema, dyspnea on exertion or orthopnea Resp: Denies: dyspnea, productive cough or non-productive cough GI: Denies: abdominal pain, nausea, vomiting, hematemesis, coffee ground emesis, diarrhea, constipation, bloating, hematochezia or melena : Denies: flank pain, dysuria, urinary frequency or urinary urgency Skin/Breast: Denies: rash or pruritus PFSH ED PFSH: Medical History Anxiety Back pain Depressive disorder Diabetes Edema, peripheral Foraminal stenosis of cervical region Hypertension Neck pain New onset atrial fibrillation Shoulder pain, bilateral Surgical History Status post cervical spinal fusion 07/18/2019 C3-C4 ACDFF Family History Other Cancer Stroke Social History Smoking and tobacco status: never smoked Alcohol intake: current Alcohol type: beer Household members: spouse Marital status: Current occupational status: disabled History of recent travel: No Course Vital Signs: Vital signs: Vital Signs Temperature 97.5 F L 10/06/20 16:57 Pulse Rate 81 10/06/20 20:49 Respiratory Rate 18 10/06/20 20:49 Blood Pressure 133/78 10/06/20 20:49 Pulse Oximetry 98 10/06/20 20:49 MDM - SOB/Dyspnea MDM Narrative: Medical decision making narrative: Patient seen initially started on Cardizem. Care turned over to Dr. Perkins at change of shift. Lab Data: Labs: Lab Results 10/06/20 10/06/20 10/06/20 Range/Units 17:50 17:50 17:50 WBC 8.1 (4.0-10.0) 10^3/ uL RBC 4.27 (4.1-5.3) 10^6/u L Hgb 13.1 (11.7-16.6) g/dL Hct 37.8 L (42.0-52.0) % MCV 88.5 (80-94) fL MCH 30.7 (28.0-34.0) pg MCHC 34.7 (30.0-36.0) g/dL RDW 13.2 (12.1-15.1) % Plt Count 355 (130-400) 10^3/c mm MPV 10.0 (7.4-10.4) fL Neut % (Auto) 84.8 % Lymph % (Auto) 10.9 % [place] % (Auto) 3.6 % Eos % (Auto) 0.1 % Baso % (Auto) 0.5 % Neut # (Auto) 6.83 (1.8-7.7) 10^3/u L Lymph # (Auto) 0.9 (0.8-4.8) 10^3/u L [place] # (Auto) 0.3 (0.2-0.9) 10^3/u L Eos # (Auto) 0.0 (0.0-0.8) 10^3/u L Baso # (Auto) 0.0 (0.0-0.1) 10^3/u L Nucleated RBC % (a uto) 0 % Nucleated RBCs # 0.0 /100WBC Sodium 140 (136-145) mmol/L Potassium 3.5 (3.5-5.1) mmol/L Chloride 100 (98-107) mmol/L Carbon Dioxide 21 L (22-29) mmol/L Anion Gap 22.5 H (5-19) BUN 17 (8-23) mg/dL Creatinine 0.6 L (0.7-1.2) mg/dL GFR Calculation 135.6 H (90-130) mL/min Glucose 206 H (65-115) mg/dL Calculated Osmolal ity 298 H (285-295) mOsm/k g Calcium 9.6 (8.5-10.5) mg/dL Total Bilirubin 0.6 (0.15-1.2) mg/dL AST 16 (0-40) U/L ALT 15 (0-41) U/L Alkaline Phosphata se 151 H (40-130) IU/L Troponin T Baselin e 11 (0-15) ng/L Troponin T 120 Min [place] (0-15) ng/L Delta Troponin T (0-10) ABS# Total Protein 7.6 (6.6-8.7) g/dL Albumin 4.4 (3.5-5.2) g/dL Globulin 3.2 (1.3-4.6) g/dL TSH (0.27-4.20) uIU/ mL Free T4 (0.82-1.77) ng/d L 10/06/20 10/06/20 Range/Units 17:50 19:30 WBC (4.0-10.0) 10^3/ uL RBC (4.1-5.3) 10^6/u L Hgb (11.7-16.6) g/dL Hct (42.0-52.0) % MCV (80-94) fL MCH (28.0-34.0) pg MCHC (30.0-36.0) g/dL RDW (12.1-15.1) % Plt Count (130-400) 10^3/c mm MPV (7.4-10.4) fL Neut % (Auto) % Lymph % (Auto) % [place] % (Auto) % Eos % (Auto) % Baso % (Auto) % Neut # (Auto) (1.8-7.7) 10^3/u L Lymph # (Auto) (0.8-4.8) 10^3/u L [place] # (Auto) (0.2-0.9) 10^3/u L Eos # (Auto) (0.0-0.8) 10^3/u L Baso # (Auto) (0.0-0.1) 10^3/u L Nucleated RBC % (a uto) % Nucleated RBCs # /100WBC Sodium (136-145) mmol/L Potassium (3.5-5.1) mmol/L Chloride (98-107) mmol/L Carbon Dioxide (22-29) mmol/L Anion Gap (5-19) BUN (8-23) mg/dL Creatinine (0.7-1.2) mg/dL GFR Calculation (90-130) mL/min Glucose (65-115) mg/dL Calculated Osmolal ity (285-295) mOsm/k g Calcium (8.5-10.5) mg/dL Total Bilirubin (0.15-1.2) mg/dL AST (0-40) U/L ALT (0-41) U/L Alkaline Phosphata se (40-130) IU/L Troponin T Baselin e (0-15) ng/L Troponin T 120 Min [place] 10.41 (0-15) ng/L Delta Troponin T -0.59 L (0-10) ABS# Total Protein (6.6-8.7) g/dL Albumin (3.5-5.2) g/dL Globulin (1.3-4.6) g/dL TSH 0.55 (0.27-4.20) uIU/ mL Free T4 1.21 (0.82-1.77) ng/d L Discharge Plan Discharge Patient Disposition: Home Clinical Impression: Atrial fibrillation with rapid ventricular response Hypertension Qualifiers: Hypertension type: essential hypertension Qualified Code(s): I10 - Essential (primary) hypertension Chest pain Qualifiers: Chest pain type: unspecified Qualified Code(s): R07.9 - Chest pain, unspecified Condition: Stable Prescriptions: New metoprolol tartrate 50 mg tablet 50 mg PO BID Qty: 60 RF: 0 Held amlodipine 10 mg tablet 10 mg PO DAILY RF: 0 Hold Instructions: Resume on 10/07/20. take 1/2 pill daily (5mg) Discontinued metoprolol tartrate 50 mg tablet 50 mg PO DAILY RF: 0 No Action (DME) ASO ankle brace Qty: 1 RF: 0 (DME) Custom Orthotics See Rx Instructions .Route .MEDSUPPLY Qty: 1 RF: 0 cyclobenzaprine 10 mg tablet 10 mg PO TID PRN (Reason: muscle spasm) RF: 0 magnesium oxide 400 mg magnesium capsule 400 mg PO DAILY RF: 0 pantoprazole 40 mg tablet,delayed release (DR/EC) 40 mg PO DAILY RF: 0 lactase 9,000 unit tablet 9,000 unit PO DAILY RF: 0 allopurinol 300 mg tablet 300 mg PO DAILY RF: 0 potassium chloride [Klor-Con] 20 mEq packet 20 meq PO DAILY RF: 0 cetirizine [Zyrtec] 10 mg tablet 10 mg PO DAILY PRN (Reason: allergy symptoms) RF: 0 diphenhydramine HCl [Allergy (diphenhydramine)] 25 mg tablet 25 mg PO BID PRN (Reason: itching) RF: 0 triamcinolone acetonide [Children's Nasacort] 55 mcg aerosol,spray 1 spray INTRANASAL DAILY RF: 0 acyclovir [Zovirax] 5 % cream 1 applic TOPICAL DAILY PRN (Reason: Itching) RF: 0 Eliquis 5 mg tablet 5 mg PO BID Qty: 180 RF: 3 duloxetine 60 mg capsule,delayed release(DR/EC) 60 mg PO DAILY Qty: 30 RF: 2 gabapentin 100 mg capsule 100 mg PO TID Qty: 90 RF: 2 mirtazapine 15 mg tablet 30 mg PO BEDTIME RF: 0 hydrocodone-acetaminophen [[place]] 5-325 mg tablet 1 tab PO Q4H PRN (Reason: pain) Qty: 20 RF: 0 Discharge Orders: Discharge ED (Routine); Ordered 10/06/20 Ordered By: Elodia Perkins Referrals: Chau Holloway, [Primary Care Provider] - Discharge Diet: Advance as tolerated Discharge Activity: Resume usual activity Patient Instructions: Atrial Fibrillation (ED) Activity Restrictions/Additional Instructions: medicationsCall your vocational childcare teacher office tomorrow to schedule a follow-up appointment soon as possible to review medication changes. Start taking metoprolol 50 mg twice daily. Decrease amlodipine to 5 mg daily. Continue other usual. Return immediately to the ER if you develop recurrent chest pain, nausea, vomiting, trouble breathing, fever, palpitations, or any other concerning changes. Sign Out Sign Out Data: Patient Sign Out occurred on 10/06/20 at 18:59. Patient's care was discussed, and care was transferred from to Elodia Perkins MD. Post-Handoff Eval: The patient's A. fib with RVR did not respond well to Cardizem. Cardizem drip was discontinued, he was given IVP dose of metoprolol which he responded well to. A p.o. dose of metoprolol 50 mg was administered, and his rate continue to be well controlled over the next 1 to 2 hours. Apparently he had been taking 25 mg once daily of metoprolol at home up until now. We will recommend that he increase his dose to 50 mg twice daily. He can hold amlodipine altogether until follow-up with his vocational childcare teacher in order to avoid hy potension from metoprolol dose change. At time of discharge, the patient was feeling much better, denied any chest pain or trouble breathing. He agreed to follow-up with his vocational childcare teacher as soon as p ossible in the next week. He also understood the directions to change the dose of metoprolol and hold amlodipine. He was instructed to return immediately to the ER if you develop recurrent palpitations, or if you develop any chest pain or shortness of breath. Coding Level of Care Code ED Therapy Administrative Assistant for Chg Fwd Documented by User: Elodia Perkins MD 10/08/20 09:00 HPI - SOB/Dyspnea General: Chief Complaint: Shortness of Breath/Dyspnea Stated Complaint: A FIB RVR Time Seen by Provider: 10/06/20 16:57 PFSH ED PFSH: Medical History Anxiety Back pain Depressive disorder Diabetes Edema, peripheral Foraminal stenosis of cervical region Hypertension Neck pain New onset atrial fibrillation Shoulder pain, bilateral Surgical History Status post cervical spinal fusion 07/18/2019 C3-C4 ACDFF Family History Other Cancer Stroke Social History Smoking and tobacco status: never smoked Alcohol intake: current Alcohol type: beer Household members: spouse Marital status: Current occupational status: disabled History of recent travel: No Course Vital Signs: Vital signs: Vital Signs Temperature 97.5 F L 10/06/20 16:57 Pulse Rate 81 10/06/20 20:49 Respiratory Rate 18 10/06/20 20:49 Blood Pressure 133/78 10/06/20 20:49 Pulse Oximetry 98 10/06/20 20:49 MDM - SOB/Dyspnea Lab Data: Labs: Lab Results 10/06/20 10/06/20 10/06/20 Range/Units 17:50 17:50 17:50 WBC 8.1 (4.0-10.0) 10^3/ uL RBC 4.27 (4.1-5.3) 10^6/u L Hgb 13.1 (11.7-16.6) g/dL Hct 37.8 L (42.0-52.0) % MCV 88.5 (80-94) fL MCH 30.7 (28.0-34.0) pg MCHC 34.7 (30.0-36.0) g/dL RDW 13.2 (12.1-15.1) % Plt Count 355 (130-400) 10^3/c mm MPV 10.0 (7.4-10.4) fL Neut % (Auto) 84.8 % Lymph % (Auto) 10.9 % [place] % (Auto) 3.6 % Eos % (Auto) 0.1 % Baso % (Auto) 0.5 % Neut # (Auto) 6.83 (1.8-7.7) 10^3/u L Lymph # (Auto) 0.9 (0.8-4.8) 10^3/u L [place] # (Auto) 0.3 (0.2-0.9) 10^3/u L Eos # (Auto) 0.0 (0.0-0.8) 10^3/u L Baso # (Auto) 0.0 (0.0-0.1) 10^3/u L Nucleated RBC % (a uto) 0 % Nucleated RBCs # 0.0 /100WBC Sodium 140 (136-145) mmol/L Potassium 3.5 (3.5-5.1) mmol/L Chloride 100 (98-107) mmol/L Carbon Dioxide 21 L (22-29) mmol/L Anion Gap 22.5 H (5-19) BUN 17 (8-23) mg/dL Creatinine 0.6 L (0.7-1.2) mg/dL GFR Calculation 135.6 H (90-130) mL/min Glucose 206 H (65-115) mg/dL Calculated Osmolal ity 298 H (285-295) mOsm/k g Calcium 9.6 (8.5-10.5) mg/dL Total Bilirubin 0.6 (0.15-1.2) mg/dL AST 16 (0-40) U/L ALT 15 (0-41) U/L Alkaline Phosphata se 151 H (40-130) IU/L Troponin T Baselin e 11 (0-15) ng/L Troponin T 120 Min [place] (0-15) ng/L Delta Troponin T (0-10) ABS# Total Protein 7.6 (6.6-8.7) g/dL Albumin 4.4 (3.5-5.2) g/dL Globulin 3.2 (1.3-4.6) g/dL TSH (0.27-4.20) uIU/ mL Free T4 (0.82-1.77) ng/d L 10/06/20 10/06/20 Range/Units 17:50 19:30 WBC (4.0-10.0) 10^3/ uL RBC (4.1-5.3) 10^6/u L Hgb (11.7-16.6) g/dL Hct (42.0-52.0) % MCV (80-94) fL MCH (28.0-34.0) pg MCHC (30.0-36.0) g/dL RDW (12.1-15.1) % Plt Count (130-400) 10^3/c mm MPV (7.4-10.4) fL Neut % (Auto) % Lymph % (Auto) % [place] % (Auto) % Eos % (Auto) % Baso % (Auto) % Neut # (Auto) (1.8-7.7) 10^3/u L Lymph # (Auto) (0.8-4.8) 10^3/u L [place] # (Auto) (0.2-0.9) 10^3/u L Eos # (Auto) (0.0-0.8) 10^3/u L Baso # (Auto) (0.0-0.1) 10^3/u L Nucleated RBC % (a uto) % Nucleated RBCs # /100WBC Sodium (136-145) mmol/L Potassium (3.5-5.1) mmol/L Chloride (98-107) mmol/L Carbon Dioxide (22-29) mmol/L Anion Gap (5-19) BUN (8-23) mg/dL Creatinine (0.7-1.2) mg/dL GFR Calculation (90-130) mL/min Glucose (65-115) mg/dL Calculated Osmolal ity (285-295) mOsm/k g Calcium (8.5-10.5) mg/dL Total Bilirubin (0.15-1.2) mg/dL AST (0-40) U/L ALT (0-41) U/L Alkaline Phosphata se (40-130) IU/L Troponin T Baselin e (0-15) ng/L Troponin T 120 Min [place] 10.41 (0-15) ng/L Delta Troponin T -0.59 L (0-10) ABS# Total Protein (6.6-8.7) g/dL Albumin (3.5-5.2) g/dL Globulin (1.3-4.6) g/dL TSH 0.55 (0.27-4.20) uIU/ mL Free T4 1.21 (0.82-1.77) ng/d L Discharge Plan Discharge Patient Disposition: Home Clinical Impression: Atrial fibrillation with rapid ventricular response Hypertension Qualifiers: Hypertension type: essential hypertension Qualified Code(s): I10 - Essential (primary) hypertension Chest pain Qualifiers: Chest pain type: unspecified Qualified Code(s): R07.9 - Chest pain, unspecified Condition: Stable Prescriptions: New metoprolol tartrate 50 mg tablet 50 mg PO BID Qty: 60 RF: 0 Held amlodipine 10 mg tablet 10 mg PO DAILY RF: 0 Hold Instructions: Resume on 10/07/20. take 1/2 pill daily (5mg) Discontinued metoprolol tartrate 50 mg tablet 50 mg PO DAILY RF: 0 No Action (DME) ASO ankle brace Qty: 1 RF: 0 (DME) Custom Orthotics See Rx Instructions .Route .MEDSUPPLY Qty: 1 RF: 0 cyclobenzaprine 10 mg tablet 10 mg PO TID PRN (Reason: muscle spasm) RF: 0 magnesium oxide 400 mg magnesium capsule 400 mg PO DAILY RF: 0 pantoprazole 40 mg tablet,delayed release (DR/EC) 40 mg PO DAILY RF: 0 lactase 9,000 unit tablet 9,000 unit PO DAILY RF: 0 allopurinol 300 mg tablet 300 mg PO DAILY RF: 0 potassium chloride [Klor-Con] 20 mEq packet 20 meq PO DAILY RF: 0 cetirizine [Zyrtec] 10 mg tablet 10 mg PO DAILY PRN (Reason: allergy symptoms) RF: 0 diphenhydramine HCl [Allergy (diphenhydramine)] 25 mg tablet 25 mg PO BID PRN (Reason: itching) RF: 0 triamcinolone acetonide [Children's Nasacort] 55 mcg aerosol,spray 1 spray INTRANASAL DAILY RF: 0 acyclovir [Zovirax] 5 % cream 1 applic TOPICAL DAILY PRN (Reason: Itching) RF: 0 Eliquis 5 mg tablet 5 mg PO BID Qty: 180 RF: 3 duloxetine 60 mg capsule,delayed release(DR/EC) 60 mg PO DAILY Qty: 30 RF: 2 gabapentin 100 mg capsule 100 mg PO TID Qty: 90 RF: 2 mirtazapine 15 mg tablet 30 mg PO BEDTIME RF: 0 hydrocodone-acetaminophen [[place]] 5-325 mg tablet 1 tab PO Q4H PRN (Reason: pain) Qty: 20 RF: 0 Discharge Orders: Discharge ED (Routine); Ordered 10/06/20 Ordered By: Elodia Perkins Referrals: Chau Holloway DO [Primary Care Provider] - Discharge Diet: Advance as tolerated Discharge Activity: Resume usual activity Patient Instructions: Atrial Fibrillation (ED) Activity Restrictions/Additional Instructions: medicationsCall your vocational childcare teacher office tomorrow to schedule a follow-up appointment soon as possible to review medication changes. Start taking metoprolol 50 mg twice daily. Decrease amlodipine to 5 mg daily. Continue other usual. Return immediately to the ER if you develop recurrent chest pain, nausea, vomiting, trouble breathing, fever, palpitations, or any other concerning changes. Sign Out Sign Out Data: Patient Sign Out occurred on 10/06/20 at 18:59. Patient's care was discussed, and care was transferred from to Elodia Perkins MD. Post-Handoff Eval: The patient's A. fib with RVR did not respond well to Cardizem. Cardizem drip was discontinued, he was given IVP dose of metoprolol which he responded well to. A p.o. dose of metoprolol 50 mg was administered, and his rate continue to be well controlled over the next 1 to 2 hours. Apparently he had been taking 25 mg once daily of metoprolol at home up until now. We will recommend that he increase his dose to 50 mg twice daily. He can hold amlodipine altogether until follow-up with his vocational childcare teacher in order to avoid hypotension from metoprolol dose change. At time of discharge, the patient was feeling much better, denied any chest pain or trouble breathing. He agreed to follow-up with his vocational childcare teacher as soon as possible in the next week. He also understood the directions to change the dose of metoprolol and hold amlodipine. He was instructed to return immediately to the ER if you develop recurrent palpitations, or if you develop any chest pain or shortness of breath. Coding Level of Care Code ED Therapy Administrative Assistant for Leonila Aparicio
[2020-10-06] MEDS: ondansetron 2 mg/ML SDV 2 mL 4 MG IVP ×2 (17:52→19:36)
[2020-10-06 17:54] LABS: Basophils % 0.5 %; Eosinophils % 0.1 %; Hematocrit 37.8 % (42.0-52.0); Hemoglobin 13.1 g/dL (11.7-16.6); Lymphocytes # 0.9 10^3/uL (0.8-4.8); Lymphocytes % 10.9 %; Mean Corpuscular HGB Conc 34.7 g/dL (30.0-36.0); Mean Corpuscular Hemoglobin 30.7 pg (28.0-34.0); Mean Corpuscular Volume 88.5 fL (80-94); Monocytes # 0.3 10^3/uL (0.2-0.9); Monocytes % 3.6 %; Neutrophils # 6.83 10^3/uL (1.8-7.7); Neutrophils % 84.8 %; Nucleated Red Blood Cells % 0 %; Platelet Count 355 10^3/cmm (130-400); Red Blood Count 4.27 10^6/uL (4.1-5.3); Red Cell Distribution Width 13.2 % (12.1-15.1); White Blood Count 8.1 10^3/uL (4.0-10.0)
[2020-10-06 18:10] LABS: Alanine Aminotransferase 15 U/L (0-41); Albumin Level 4.4 g/dL (3.5-5.2); Alkaline Phosphatase 151 IU/L (40-130); Anion Gap 22.5 (5-19); Aspartate Amino Transferase 16 U/L (0-40); Blood Urea Nitrogen 17 mg/dL (8-23); Calcium 9.6 mg/dL (8.5-10.5); Carbon Dioxide 21 mmol/L (22-29); Chloride 100 mmol/L (98-107); Globulin 3.2 g/dL (1.3-4.6); Glomerular Filtration Rate 135.6 mL/min (90-130); Glucose 206 mg/dL (65-115); Osmolality Calculated 298 mOsm/kg (285-295); Potassium 3.5 mmol/L (3.5-5.1); Sodium 140 mmol/L (136-145); Total Bilirubin 0.6 mg/dL (0.15-1.2); Total Protein 7.6 g/dL (6.6-8.7)
[2020-10-06 18:14] LABS: Troponin(5th) Baseline 11 ng/L (0-15)
--- NOTE | 2020-10-06 18:14 | PC.PHAR ---
PT UNABLE TO CONFIRM MEDICATION. HE IS A , BUT I AM UNABLE TO GET A SIGNATURE FROM HIM TO SENT FOR HIS MEDICATION LIST. I SPOKE TO PT'S , BUT SHE WAS UNABLE TO CONFIRM HIS MEDICATIONS. I AM GOING BY PT'S MEDICATION HISTORY AND PHARMACY LIST FROM THE LOCAL PHARMACY.
[2020-10-06] MEDS: nitroglycerin 1 gm/inch oint Pkt 1 INCH TOPICAL (18:21)
[2020-10-06] MEDS: metoprolol tartrate 1 mg/1 mL SDV 5 mL 5 MG IV (19:05)
--- NOTE | 2020-10-06 19:08 | ECG_ITS ---
[facility] Test Date: 2020-10-06 Pat Name: Kenneth Barry Department: Room: Gender: Male Derivatives Trader: : 1955 Requested By: Shahram Keyes Order Number: [id number] Maira MD: Estrella Coleman M.D. Measurements Intervals [place] Rate: 82 P: 70 [place]: 211 QRS: 76 QRSD: 94 T: 60 QT: 439 QTc: 516 Interpretive Statements SINUS RHYTHM WITH FIRST DEGREE AV BLOCK PROLONGED QT INTERVAL Compared to ECG 10/06/2020 16:58:58 First degree AV block now present Prolonged QT interval now present Atrial flutter no longer present ST (T wave) deviation no longer present Electronically Signed On 10-07-2020 11:52:33 STACKER ATTENDANT by Estrella Coleman M.D. [id number]
[2020-10-06] MEDS: metoprolol tartrate 50 mg Tablet PO (19:38)
[2020-10-06] MEDS: sodium chloride 0.9% 500 ML 999 ML IV (19:38)
[2020-10-06 19:42] LABS: Free T4 Free Thyroxine 1.21 ng/dL (0.82-1.77); Thyroid Stimulating Hormone 0.55 uIU/mL (0.27-4.20)
[2020-10-06 19:58] LABS: Troponin 5 2HR 10.41 ng/L (0-15)
[2020-10-06 19:59] LABS: Troponin 5 2HR Delta -0.59 ABS# (0-10)
[2020-10-06] MEDS: lidocaine 2% viscous 15 ML, aluminum-mag hydrox-simethicon 30 ML, sucralfate oral liq 1 GM PO (20:00)
[2020-10-06] MEDS: famotidine 20 mg Tablet 40 MG PO (20:00)
--- NOTE | 2020-10-06 20:03 | XR_ITS ---
WS: [id number] Portable AP upright chest, 10/06/2020 Clinical Data: chest pain Comparison: Portable chest, 12/16/2018. Findings: No nodules, masses or effusions are seen. The heart is normal. The pulmonary vascularity is not increased. No pneumonia or pneumothorax is seen. The aortic arch and descending aorta show tortu osity. There are sutures overlying the left lower lobe. There are monitor leads on the chest. Arthrit ic change of the left shoulder is moderate. XR/XR chest 1V portable [id number] Impression: Atherosclerosis.
== END 2020-10-06 20:51 | disposition home or self-care (01) ==
PROVIDERS: Family Medicine; Emergency Provider Family Medicine; PCP Emergency Medicine Emergency Medical Services
DX: I48.20 Chronic atrial fibrillation, unspecified (principal); I10 Essential (primary) hypertension; R07.9 Chest pain, unspecified; Z79.01 Long term (current) use of anticoagulants; E11.9 Type 2 diabetes mellitus without complications
CPT/HCPCS: 36415; 71045; 80053; 84439; 84443; 84484; 85025; 93005; 96365; 96375; 96376; 99283; 99284; J2405; J3490; J7040

== ENCOUNTER 2020-10-12 13:08 | Inpatient (IN) | payer OTHER, MEDICARE, SELFPAY ==
[2020-10-12] VITALS (12 sets, daily range): BP systolic 81–120; BP diastolic 50–100; PULSE 62–132; RESP 14–25; TEMP 36.4–36.8; O2SAT 94–100; BMI 25.7
--- NOTE | 2020-10-12 13:47 | XR_ITS ---
WS: [id number] PORTABLE CHEST HISTORY: Chest discomfort. COMPARISON: 10/06/2020 Postsurgical sutures are noted over the LEFT diaphragm. Lungs are clear and well expanded. No pleural effusion or pneumothorax. Cardiac size: Normal. Mediastinum/Aorta: Normal mediastinum. Degenerative changes involving the LEFT humeral head may be from an old fracture. XR/XR chest 1V portable [id number] IMPRESSION: Unremarkable portable chest.
--- NOTE | 2020-10-12 13:47 | ECG_ITS ---
[facility] Test Date: 2020-10-12 Pat Name: Kenneth Barry Department: Room: Gender: Male Continuous Improvement Facilitator: JOSEPH : 1955 Requested By: Shahram Keyes Order Number: [id number] Maira MD: Jacquelin Lake M.D. Measurements Intervals [place] Rate: 132 P: [place]: QRS: 85 QRSD: 94 T: 68 QT: 348 QTc: 517 Interpretive Statements ATRIAL FIBRILLATION WITH RAPID VENTRICULAR RESPONSE MODERATE ST DEPRESSION [0.05+ mV ST DEPRESSION] Compared to ECG 10/06/2020 20:19:39 ST (T wave) deviation now present Sinus rhythm no longer present First degree AV block no longer present Prolonged QT interval no longer present Electronically Signed On 10-12-2020 16:09:48 PLASTERER SPRAY GUN by Jacquelin Lake M.D. [id number]
--- NOTE | 2020-10-12 13:48 | ED_ITS ---
HPI - Weakness General: Chief complaint: Weakness Stated complaint: Weakness, N/V Time Seen by Provider: 10/12/20 13:38 History of Present Illness: HPI Narrative: 65-year-old male presents emergency room complaining of shortness of breath and chest discomfort. He was seen on the ninth of this month at that time was in A. fib with RVR he converted on ultimately was controlled on metoprolol and was discharged home he is back today complaining of similar symptoms nausea and vomiting throughout the day he is remained in A. fib he was sent home on metoprolol 50 twice daily. Denies any hematochezia melena hematemesis coffee-ground percent any shortness of breath. He is on apixaban. Patient is complaining of some right lower quadrant abdominal discomfort as well mild tenderness on exam MD Complaint: generalized weakness Onset (ago): day(s) Duration: constant Location: generalized Relieving factors: none Exacerbating factors: none Associated symptoms: Reports chest pain; Denies chills, confusion, melena, decreased appetite, diaphoresis, dysuria, easy bruising, fever(s), headache(s), myalgias, nausea, rash, short of breath, syncope or vomiting Review of Systems Const: Denies: fever(s), chills or diaphoresis Eyes: Denies: change in vision or blurry vision ENMT: Denies: throat pain, oral sores, dental pain, nasal discharge or nasal congestion Card: Reports: chest pain; Denies: syncope Resp: Denies: dyspnea, productive cough, non-productive cough or wheezing GI: Denies: nausea, vomiting or melena : Denies: dysuria Musc: Denies: neck pain, back pain, extremity pain, extremity swelling, joint pain or joint swelling Skin/Breast: Denies: rash, pruritus or erythema Neuro: Denies: headache(s) or confusion Psych: Denies: anxiety, depression, loss of interest, visual hallucinations, auditory hallucinations, suicidal ideation or homicidal ideation Endo: Denies: polyuria, polydipsia, tired all the time or cold intolerance Rajiv/Lymph: Denies: easy bruising PFS ED PFSH: Medical History Anxiety Back pain Depressive disorder Diabetes Edema, peripheral Foraminal stenosis of cervical region Hypertension Neck pain New onset atrial fibrillation Shoulder pain, bilateral Surgical History Fusion of lumbar spine H/O shoulder surgery History of penile implant Hx of cholecystectomy Status post cervical spinal fusion 07/18/2019 C3-C4 ACDFF Family History Other Cancer Paroxysmal A-fib Stroke Social History Smoking and tobacco status: former smoker Alcohol intake: never Substance/Drug Use: current Other substance/drug use details: Occ MJ Lives independently: Yes Household members: none Marital status: Current occupational status: retired and disabled History of recent travel: No Physical Exam Const: COMMON NORMALS: no acute distress GENERAL APPEARANCE: cooperative and comfortable ORIENTATION/CONSCIOUSNESS: Yes awake, Yes oriented to person, Yes oriented to place and Yes oriented to time HENMT: COMMON NORMALS: normocephalic, atraumatic and hearing grossly normal bilaterally HEAD & SCALP: normocephalic and atraumatic Neck/C-Spine: COMMON NORMALS: no JVD Resp: COMMON NORMALS: normal respiratory effort, No retractions, No use of accessory muscles and clear to auscultation bilaterally AUSCULTATION: clear to auscultation bilaterally Cardio: COMMON NORMALS: no JVD, regular rate, regular rhythm and No murmurs present (Cardio) RATE: regular rate RHYTHM: regular rhythm GI: COMMON NORMALS: Soft to palpation and No hepatosplenomegaly present AUSCULTATION: Yes normoactive bowel sounds PALPATION: Yes Soft to palpation, No Tenderness to palpation present (GI), No Guarding due to palpation present (GI) and Yes No hepatosplenomegaly present Extremity: COMMON NORMALS: normal to inspection, capillary refill normal, no clubbing, cyanosis or edema, no calf tenderness and no pedal edema Neuro: SENSORIUM/ORIENTATION: Yes oriented to person, Yes oriented to place and Yes oriented to time Skin: COMMON NORMALS: no rashes or lesions noted GENERAL SKIN EXAM: no rashes or lesions noted Course Vital Signs: Vital signs: Vital Signs Temperature 98.2 F 10/13/20 04:00 Pulse Rate 80 10/13/20 05:54 Respiratory Rate 24 H 10/13/20 04:00 Blood Pressure 95/55 10/13/20 04:00 Pulse Oximetry 97 10/13/20 04:00 MDM - Weakness MDM Narrative: Medical decision making narrative: Patient returns for second time with Crow dobbins with RVR. Rate controlled with Cardizem. His nausea and vomiting are improved. CT did not show anything in his of significance intra- abdominal. We will go ahead and admit the patient discussed Dr. Beaulieu orders written Lab Data: Labs: Lab Results 10/12/20 10/12/20 10/12/20 Range/Units 14:10 14:10 14:10 WBC 12.4 H (4.0-10.0) 10^3/ uL RBC 4.92 (4.1-5.3) 10^6/u L Hgb 15.1 (11.7-16.6) g/dL Hct 43.7 (42.0-52.0) % MCV 88.8 (80-94) fL MCH 30.7 (28.0-34.0) pg MCHC 34.6 (30.0-36.0) g/dL RDW 13.0 (12.1-15.1) % Plt Count 370 (130-400) 10^3/c mm MPV 10.3 (7.4-10.4) fL Neut % (Auto) 63.5 % Lymph % (Auto) 25.1 % [place] % (Auto) 6.3 % Eos % (Auto) 4.2 % Baso % (Auto) 0.6 % Neut # (Auto) 7.87 H (1.8-7.7) 10^3/u L Lymph # (Auto) 3.1 (0.8-4.8) 10^3/u L [place] # (Auto) 0.8 (0.2-0.9) 10^3/u L Eos # (Auto) 0.5 (0.0-0.8) 10^3/u L Baso # (Auto) 0.1 (0.0-0.1) 10^3/u L Nucleated RBC % (a uto) 0 % Nucleated RBCs # 0.0 /100WBC Sodium 136 (136-145) mmol/L Potassium 3.3 L (3.5-5.1) mmol/L Chloride 93 L (98-107) mmol/L Carbon Dioxide 24 (22-29) mmol/L Anion Gap 22.3 H (5-19) BUN 19 (8-23) mg/dL Creatinine 0.9 (0.7-1.2) mg/dL GFR Calculation 84.7 L (90-130) mL/min Glucose 183 H (65-115) mg/dL Calculated Osmolal ity 289 (285-295) mOsm/k g Calcium 9.8 (8.5-10.5) mg/dL Total Bilirubin 0.7 (0.15-1.2) mg/dL AST 18 (0-40) U/L ALT 16 (0-41) U/L Alkaline Phosphata se 149 H (40-130) IU/L Troponin T Baselin e 28 H (0-15) ng/L Total Protein 7.8 (6.6-8.7) g/dL Albumin 4.7 (3.5-5.2) g/dL Globulin 3.1 (1.3-4.6) g/dL Urine Color (Yellow) Urine Appearance (CLEAR) Urine pH (5-7) Ur Specific Gravit y (1.005-1.030) Urine Protein (Negative) Urine Glucose (UA) (Normal) Urine Ketones (Negative) Urine Blood (Negative) Urine Nitrate (Negative) Urine Bilirubin (Negative) Urine Urobilinogen (Negative) mg/dL Ur Leukocyte Annabelle ase (Negative) 10/12/20 Range/Units 18:12 WBC (4.0-10.0) 10^3/ uL RBC (4.1-5.3) 10^6/u L Hgb (11.7-16.6) g/dL Hct (42.0-52.0) % MCV (80-94) fL MCH (28.0-34.0) pg MCHC (30.0-36.0) g/dL RDW (12.1-15.1) % Plt Count (130-400) 10^3/c mm MPV (7.4-10.4) fL Neut % (Auto) % Lymph % (Auto) % [place] % (Auto) % Eos % (Auto) % Baso % (Auto) % Neut # (Auto) (1.8-7.7) 10^3/u L Lymph # (Auto) (0.8-4.8) 10^3/u L [place] # (Auto) (0.2-0.9) 10^3/u L Eos # (Auto) (0.0-0.8) 10^3/u L Baso # (Auto) (0.0-0.1) 10^3/u L Nucleated RBC % (a uto) % Nucleated RBCs # /100WBC Sodium (136-145) mmol/L Potassium (3.5-5.1) mmol/L Chloride (98-107) mmol/L Carbon Dioxide (22-29) mmol/L Anion Gap (5-19) BUN (8-23) mg/dL Creatinine (0.7-1.2) mg/dL GFR Calculation (90-130) mL/min Glucose (65-115) mg/dL Calculated Osmolal ity (285-295) mOsm/k g Calcium (8.5-10.5) mg/dL Total Bilirubin (0.15-1.2) mg/dL AST (0-40) U/L ALT (0-41) U/L Alkaline Phosphata se (40-130) IU/L Troponin T Baselin e (0-15) ng/L Total Protein (6.6-8.7) g/dL Albumin (3.5-5.2) g/dL Globulin (1.3-4.6) g/dL Urine Color Yellow (Yellow) Urine Appearance Clear (CLEAR) Urine pH 7 (5-7) Ur Specific Gravit y 1.015 (1.005-1.030) Urine Protein Neg (Negative) Urine Glucose (UA) Norm (Normal) Urine Ketones Negative (Negative) Urine Blood Neg (Negative) Urine Nitrate Negative (Negative) Urine Bilirubin Neg (Negative) Urine Urobilinogen Norm (Negative) mg/dL Ur Leukocyte [place] ase Negative (Negative) Discharge Plan Discharge Patient Disposition: Admitted As Inpatient Admit Provider: Fish Beaulieu Clinical Impression: Atrial fibrillation with rapid ventricular response, Chest pain, Hypokalemia Condition: Stable Coding Level of Care Code ED Supervisor [employer] for Chg Fwd Exam Comprehensive
--- NOTE | 2020-10-12 13:52 | CT_ITS ---
WS: [id number] CT ABDOMEN AND PELVIS WITH CONTRAST HISTORY: LEFT abdominal pain. TECHNIQUE: Imaging performed of the abdomen and pelvis with IV contrast. Single phase imaging of the abdomen. Coronal and sagittal reformats are submitted. All CT scans at [facility] use at least one of these dose optimization techniques: automated exposure control; mA and/or kV adjustment per patient size (includes targeted exams where dose is matched to clinical indication); or iterativ e reconstruction. IV CONTRAST: Omnipaque 300; 95 mL IV. Oral contrast: No DLP: 925.51 mGy.cm COMPARISON: 01/31/2019 Lower thorax: No pneumonia. Normal size heart. No hiatal hernia. Liver/biliary system: Normal size with no intrahepatic dilatation. Gallbladder: Status post cholecystectomy. Pancreas: Normal. Spleen: Normal. Adrenal glands: 1.2 cm LEFT adrenal nodule is stable. Probably an adenoma. Negative RIGHT adrenal gla nd. Right kidney: Mild perinephric stranding. No obstruction. Left kidney: Mild perinephric stranding with no obstruction or mass. Aorta: Mild atherosclerosis with no aneurysm. Lymphadenopathy: None. Free fluid: None. GI tract: No GI tract obstruction. The appendix is negative. No wall thickening. Abdominal wall: Fluid collection just superficial to the musculature of the LEFT pelvis associated wi th the penile implant hardware. Similar to the prior study. Pelvis: Normal. Bones: Extensive posterior spinal fusion from L2 to L5 with laminectomy defects. CT/CT abdomen pelvis w con* [id number] IMPRESSION: 1. No acute abdominal or pelvic abnormalities are identified. 2. No ascites or free air. No GI tract obstruction.
[2020-10-12] MEDS: sodium chloride 0.9% 500 ML 999 ML IV (14:04)
[2020-10-12 14:22] LABS: Basophils # 0.1 10^3/uL (0.0-0.1); Basophils % 0.6 %; Eosinophils # 0.5 10^3/uL (0.0-0.8); Eosinophils % 4.2 %; Hematocrit 43.7 % (42.0-52.0); Hemoglobin 15.1 g/dL (11.7-16.6); Lymphocytes # 3.1 10^3/uL (0.8-4.8); Lymphocytes % 25.1 %; Mean Corpuscular HGB Conc 34.6 g/dL (30.0-36.0); Mean Corpuscular Hemoglobin 30.7 pg (28.0-34.0); Mean Corpuscular Volume 88.8 fL (80-94); Mean Platelet Volume 10.3 fL (7.4-10.4); Monocytes # 0.8 10^3/uL (0.2-0.9); Monocytes % 6.3 %; Neutrophils # 7.87 10^3/uL (1.8-7.7); Neutrophils % 63.5 %; Nucleated Red Blood Cells % 0 %; Platelet Count 370 10^3/cmm (130-400); Red Blood Count 4.92 10^6/uL (4.1-5.3); White Blood Count 12.4 10^3/uL (4.0-10.0)
[2020-10-12 14:38] LABS: Alanine Aminotransferase 16 U/L (0-41); Albumin Level 4.7 g/dL (3.5-5.2); Alkaline Phosphatase 149 IU/L (40-130); Anion Gap 22.3 (5-19); Aspartate Amino Transferase 18 U/L (0-40); Blood Urea Nitrogen 19 mg/dL (8-23); Calcium 9.8 mg/dL (8.5-10.5); Carbon Dioxide 24 mmol/L (22-29); Chloride 93 mmol/L (98-107); Globulin 3.1 g/dL (1.3-4.6); Glomerular Filtration Rate 84.7 mL/min (90-130); Glucose 183 mg/dL (65-115); Osmolality Calculated 289 mOsm/kg (285-295); Potassium 3.3 mmol/L (3.5-5.1); Sodium 136 mmol/L (136-145); Total Bilirubin 0.7 mg/dL (0.15-1.2); Total Protein 7.8 g/dL (6.6-8.7)
[2020-10-12 14:40] LABS: Troponin(5th) Baseline 28 ng/L (0-15)
[2020-10-12] MEDS: ondansetron 2 mg/ML SDV 2 mL 4 MG IVP (14:56)
[2020-10-12] MEDS: iohexol 300 mg/mL 100 mL Btl IV (15:18)
[2020-10-12] MEDS: metoprolol tartrate 50 mg Tablet PO ×2 (15:23→20:04)
--- NOTE | 2020-10-12 15:47 | ECG_ITS ---
[facility] Test Date: 2020-10-12 Pat Name: Kenneth Barry Department: Room: Gender: Male Brigadier: : 1955 Requested By: Shahram Keyes Order Number: [id number] Maira MD: Jacquelin Lake M.D. Measurements Intervals [place] Rate: 109 P: [place]: QRS: 71 QRSD: 90 T: -18 QT: 365 QTc: 493 Interpretive Statements ATRIAL FIBRILLATION WITH RAPID VENTRICULAR RESPONSE NONSPECIFIC ST & T-WAVE ABNORMALITY Compared to ECG 10/06/2020 20:19:39 T-wave abnormality now present Sinus rhythm no longer present First degree AV block no longer present Prolonged QT interval no longer present Electronically Signed On 10-12-2020 16:12:32 CONTAINER COORDINATOR by Jacquelin Lake M.D. [id number]
--- NOTE | 2020-10-12 17:54 | P.HP_ITS ---
Providers/Chief Complaint Primary Care Provider: Chau Holloway DO Chief Complaint: Weakness, N/V, AFIB related issues History of Present Illness Very pleasant 65-year-old gentleman with history of atrial fibrillation, with surgery of L-spine 2 weeks ago at [place], with fall and back pain, but otherwise at baseline state of health reports has been having issues with very easy dyspnea on exertion, fatigability for the last weeks-months. He has had multiple coronavirus tests which were all negative. He reports he has been afeb rile. He has not been having lower extremity edema, and not noticed significant cough. Has had no hemoptysis, no unilateral swelling. He had a visit to ER on 10/06 due to A. fib with RVR at which time was treated with Cardizem drip and transition to metoprolol after response to metoprolol IV. He reports he was diagnosed with atrial fibrillation sometime over 6 months ago and was treated for it at [facility] at which time had converted to sinus rhythm within about 24 hours of infusion of what he believes was Cardizem. He reports he has been on Eliquis at least since that time. He has not missed any doses. In ER he is afebrile, but with leukocytosis 12.4, mostly neutrophilic. Noted mild hypokalemia 3.3. BUN 19, creatinine 0.9. Noted alk phos 149. Baseline troponin is 28. He does report he has been having palpitations and chest discomfort/pain associated with irregular heartbeat which he says he can feel. Chest x-ray is unremarkable. CT abdomen pelvis with contrast without acute abnormalities. In ER initial heart rates in 130s. He was started on Cardizem drip, 7.5 mg/h, received 50 mg p.o. metoprolol. Currently is chest pain-free. Heart rates with Cardizem drip down to 80s-90s at the moment. In atrial fibrillation. He reports urine has been having Sweet water. He reports prediabetes. Review of Systems Const: Denies: fever(s), chills, body aches or malaise Eyes: Denies: change in vision or eye redness ENMT: Denies: throat pain, oral sores or ear or mastoid pain Card: Reports: chest pain and dyspnea on exertion; Denies: edema or pre-syncope Resp: Denies: dyspnea, productive cough, change in phlegm color or hemoptysis GI: Denies: abdominal pain, nausea, vomiting, diarrhea, constipation, hematochezia or melena : Denies: flank pain, difficulty urinating, urinary frequency or hematuria Musc: Denies: back pain, joint swelling or joint redness Skin/Breast: Denies: rash, sores or new lesions Neuro: Denies: headache(s), numbness in extremities, weakness in extremities, dizziness, confusion or seizure-like activity Endo: Denies: polyuria or polydipsia Rajiv/Lymph: Denies: easy bleeding or purpura All/Imm: Denies: urticaria, throat swelling or tongue swelling Medications/Allergies Home Medications Medication Instructions Recorded Confirmed Last Taken Type acyclovir 5 % topical cream 1 applic TOPICAL DAILY PRN gm 10/17/19 10/12/20 07/20/20 History cetirizine 10 mg tablet 10 mg PO DAILY PRN 10/17/19 10/12/20 07/20/20 History cyclobenzaprine 10 mg tablet 10 mg PO TID PRN tab 10/17/19 10/12/20 07/20/20 History diphenhydramine HCl 25 mg tablet 25 mg PO BID PRN tab 10/17/19 10/12/20 Unknown History lactase 9,000 unit tablet 9,000 unit PO DAILY tab 10/17/19 10/12/20 07/20/20 History magnesium oxide 400 mg PO DAILY cap 10/17/19 10/12/20 10/12/20 History pantoprazole 40 mg tablet,delayed 40 mg PO DAILY tab 10/17/19 10/12/20 10/12/20 History release triamcinolone acetonide 55 mcg 1 spray INTRANASAL DAILY 10/17/19 10/12/20 07/20/20 History nasal spray aerosol allopurinol 300 mg tablet 300 mg PO DAILY tab 11/27/19 10/12/20 10/11/20 History amlodipine 10 mg tablet 10 mg PO DAILY tab 11/27/19 10/12/20 07/21/20 05:00 History potassium chloride 20 mEq oral 20 meq PO DAILY each 11/27/19 10/12/20 10/12/20 History packet ASO ankle brace #1 ea 12/25/19 10/12/20 Unknown Rx Custom Orthotics #1 ea 04/29/20 10/12/20 Unknown Rx apixaban 5 mg tablet 5 mg PO BID #180 tab 06/24/20 10/12/20 10/12/20 Rx hydrocodone-acetaminophen [[place]] 1 tab PO Q4H PRN #20 tab 07/21/20 10/12/20 Unknown Rx duloxetine 60 mg capsule,delayed 60 mg PO DAILY #30 cap 09/07/20 10/12/20 Unknown Rx release metoprolol tartrate 50 mg PO BID #60 tab 10/06/20 10/12/20 10/12/20 Rx mirtazapine 30 mg PO BEDTIME 10/06/20 10/12/20 10/11/20 History ondansetron 4 mg PO Q8H PRN 10/12/20 10/12/20 Unknown History Allergies Allergy/AdvReac Type Severity Reaction Status Date / Time codeine Allergy Severe Unknown Unverified 10/12/20 18:03 meperidine [From Demerol] Allergy Severe ADR-Itching Verified 09/17/20 09:45 oxycodone Allergy Severe ADR-Itching Verified 09/17/20 09:45 PFSH Acute PFSH: Medical History (Updated 10/12/20 @ 18:04 by Fish Beaulieu MD) Anxiety Back pain Depressive disorder Diabetes Edema, peripheral Foraminal stenosis of cervical region Hypertension Neck pain New onset atrial fibrillation Shoulder pain, bilateral Surgical History (Updated 10/12/20 @ 18:12 by Fish Beaulieu MD) Fusion of lumbar spine H/O shoulder surgery History of penile implant Hx of cholecystectomy Status post cervical spinal fusion 07/18/2019 C3-C4 ACDFF Family History (Updated 10/12/20 @ 17:58 by Fish Beaulieu MD) Other Cancer Paroxysmal A-fib Stroke Social History Smoking and tobacco status: former smoker Alcohol intake: never Substance/Drug Use: current Other substance/drug use details: Occ MJ Lives independently: Yes Household members: none Marital status: Current occupational status: retired and disabled History of recent travel: No Vitals/I&O/Wt Last Vital Signs Temp 97.5 F L 10/12/20 13:32 Pulse 96 10/12/20 17:10 Resp 16 10/12/20 17:10 BP 100/74 10/12/20 17:10 Pulse Ox 95 10/12/20 17:10 10/12/20 10/12/20 10/12/20 06:59 14:59 22:59 Intake Total 502.75 / 502.75 Balance 502.75 / 502.75 Weight last 48 hrs Weight 86.183 kg Physical Exam Const: COMMON NORMALS: no acute distress and patient oriented x3 HENMT: COMMON NORMALS: oropharynx normal Neck/C-Spine: COMMON NORMALS: no JVD Resp: COMMON NORMALS: normal respiratory effort and clear to auscultation bilaterally AUSCULTATION: clear to auscultation bilaterally Cardio: COMMON NORMALS: no JVD, regular rhythm, S1 normal heart sound present, S2 normal heart sound present and No murmurs present (Cardio) RHYTHM: regular rhythm HEART SOUNDS: S1 normal heart sound present and S2 normal heart sound present GI: COMMON NORMALS: Normal to inspection, nondistended, normoactive bowel sounds present, Soft to palpation and non-tender PALPATION: Yes Soft to palpation Extremity: COMMON NORMALS: no joint enlargement and no pedal edema Neuro: COMMON NORMALS: patient oriented x3 and moves all extremities Skin: COMMON NORMALS: no rashes or lesions noted GENERAL SKIN EXAM: no rashes or lesions noted Data : 10/12/20 14:10 10/12/20 14:10 A&P Assessment and plan (1) Atrial fibrillation with rapid ventricular response: Symptomatic A. fib with RVR, heart rate in 130s. With chest pain. Troponin up to 28. Currently heart rate better controlled with Cardizem drip. Chest pain resolved. Replace hypokalemia. Check magnesium. On 10/06 TSH, T4 were normal. Continue metoprolol 50 mg twice daily. Wean off Cardizem drip. Assess TTE. He is agreeable for additional assessment with stress testing given episodes of chest pain, abnormal troponin. If continues to be symptomatic or heart rates not well controlled with Cardizem, is agreeable to transition to amiodarone. Continue Eliquis. Status: Acute (2) Chest pain: Currently resolved, appears to be related to A. fib with RVR episodes. Troponin XX 8. Complete troponin EKG series. Troponin abnormality suspect is secondary to arrhythmia, however, with recurrent episodes of A. fib with RVR, without obvious trigger, he is agreeable for additional assessment with stress testing once heart rate is better controlled. Status: Acute Qualifiers: Chest pain type: unspecified Qualified Code(s): R07.9 - Chest pain, unspecified (3) Hypokalemia: Replace. Check magnesium. Status: Acute (4) Leukocytosis: He reports dyspnea exertion, however, denies other respiratory symptoms to suggest upper or lower respiratory tract infection. Says he had surgery about 2 weeks ago and at that time was tested for coronavirus was negative. Denies fevers, chills, denies cough, shortness of breath. Chest x-ray is unremarkable. He does state that his urine has been having sweet odor to it. Will check UA. Status: Acute Additional A&P Information Recent lumbar spine surgery: Wound appears to have healed well. No erythema surrounding the scar. No opening or drainage. He does report pain after recent fall. Will assess with x-ray lumbar spine. In case of cardiopulmonary resuscitation he does want attempted CPR and life s upport, but does not want protracted life support. In case he is unable to make decisions for himself names his ex- first or his son second as surrogate decision makers. Prediabetes Alk phos elevation: Noted incidentally, 149. Suspect this is related to his recent surgery. Will check GGT. No abdominal pain currently. CT abdomen pelvis unremarkable. Status post cholecystectomy. Attestations Medical Necessity Statement*: Admission of over 2 midnights is continued for assessment of management of symptomatic A. fib with RVR with recurrence despite outpatient treatment, chest pain, troponin abnormality. Coding Level of Care Code Acute Hand Spinner for [facility] Fwd Diagnoses Atrial fibrillation with rapid ventricular response I48.91 Chest pain R07.9 Chest pain type: unspecified Hypokalemia E87.6 Leukocytosis D72.829
--- NOTE | 2020-10-12 18:01 | PC.NURSE ---
Pt given urinal
--- NOTE | 2020-10-12 18:11 | XR_ITS ---
WS: [id number] LUMBAR SPINE: 3 VIEWS TECHNIQUE: AP, lateral and L5-S1 spot. HISTORY: Recent surgery, fall, pain COMPARISON: 10/12/2020 Long segment posterior lumbar fusion extends from L2 to S1. Pedicle screws and vertical bars are inta ct. No fractures. Interbody spacers at L3-4, L4-5 and L5-S1. Bone graft is incompletely fused bilater ally. No acute interval change. Large laminectomy defects at L3, L4 and L5. Mild narrowing and sclerosis of the SI joints. Prior cholecystectomy. XR/XR lumbar spine 2-3V* [id number] IMPRESSION: 1. Status post lumbar fusion from L2 through S1. No acute fractures. 2. No hardware fracture or failure.
[2020-10-12 18:44] LABS: Add Urine Microscopic? NO
[2020-10-12 18:49] LABS: Bilirubin Urine Neg (Negative); Blood Urine Neg (Negative); Glucose Urine UA Norm (Normal); Ketones Urine Negative (Negative); Leukocyte Esterase Urine Negative (Negative); Nitrate Urine Negative (Negative); Protein Urine Neg (Negative); Specific Gravity, Urine 1.015 (1.005-1.030); Urine Appearance Clear (CLEAR); Urine Color Yellow (Yellow); Urobilinogen Urine Norm (Negative); pH Urine 7 (5-7)
[2020-10-12 19:52] LABS: Magnesium 1.9 mg/dL (1.7-2.3)
[2020-10-12] MEDS: apixaban 5 mg Tablet PO (20:03)
[2020-10-12] MEDS: mirtazapine 15 mg Tablet 30 MG PO (20:03)
[2020-10-12] MEDS: HYDROcodone-acetaminophen 5-325 mg Tablet 1 TAB PO (20:04)
[2020-10-12] MEDS: sodium chloride 0.9% 1,000 ML 100 ML IV (20:05)
[2020-10-12] MEDS: potassium chloride ER 20 mEq Tablet 40 MEQ PO (20:18)
[2020-10-12 22:01] LABS: Troponin 5 2HR 24.17 ng/L (0-15)
[2020-10-12 22:06] LABS: Troponin 5 2HR Delta -3.83 ABS# (0-10)
[2020-10-12 22:50] LABS: Troponin 5 6HR 23.58 ng/L (0-15)
[2020-10-12 22:59] LABS: Troponin 5 6HR Delta -4.42 ng/L (0-12)
[2020-10-13] VITALS (10 sets, daily range): BP systolic 95–134; BP diastolic 55–66; PULSE 65–80; RESP 14–24; TEMP 36.6–36.8; O2SAT 94–100
[2020-10-13] MEDS: sodium chloride 0.9% 1,000 ML 100 ML IV ×3 (04:32→23:56)
[2020-10-13 05:28] LABS: Basophils # 0.1 10^3/uL (0.0-0.1); Eosinophils # 1.1 10^3/uL (0.0-0.8); Eosinophils % 12.2 %; Hematocrit 36.5 % (42.0-52.0); Hemoglobin 12.1 g/dL (11.7-16.6); Lymphocytes # 3.5 10^3/uL (0.8-4.8); Lymphocytes % 38.2 %; Mean Corpuscular HGB Conc 33.2 g/dL (30.0-36.0); Mean Corpuscular Hemoglobin 30.6 pg (28.0-34.0); Mean Corpuscular Volume 92.2 fL (80-94); Mean Platelet Volume 10.3 fL (7.4-10.4); Monocytes # 0.7 10^3/uL (0.2-0.9); Monocytes % 7.9 %; Neutrophils # 3.73 10^3/uL (1.8-7.7); Neutrophils % 40.4 %; Nucleated Red Blood Cells % 0 %; Platelet Count 248 10^3/cmm (130-400); Red Blood Count 3.96 10^6/uL (4.1-5.3); Red Cell Distribution Width 13.2 % (12.1-15.1); White Blood Count 9.2 10^3/uL (4.0-10.0)
[2020-10-13 05:43] LABS: Alanine Aminotransferase 11 U/L (0-41); Albumin Level 3.7 g/dL (3.5-5.2); Alkaline Phosphatase 114 IU/L (40-130); Anion Gap 13.4 (5-19); Aspartate Amino Transferase 12 U/L (0-40); Blood Urea Nitrogen 23 mg/dL (8-23); Calcium 9.1 mg/dL (8.5-10.5); Carbon Dioxide 25 mmol/L (22-29); Chloride 99 mmol/L (98-107); Globulin 2.6 g/dL (1.3-4.6); Glomerular Filtration Rate 84.7 mL/min (90-130); Glucose 131 mg/dL (65-115); Osmolality Calculated 283 mOsm/kg (285-295); Potassium 3.4 mmol/L (3.5-5.1); Sodium 134 mmol/L (136-145); Total Bilirubin 0.3 mg/dL (0.15-1.2); Total Protein 6.3 g/dL (6.6-8.7)
--- NOTE | 2020-10-13 08:00 | USCV_ITS ---
Kenneth Barry Age: 65 Gender: M : 1955 Exam Date: 10/13/2020 06:56 Ordering Phys: Fish Beaulieu MD Technologist: Jaime Crespo [place] [facility] [place]: WEAKNESS, N/V, AFIB RELATED ISSUES BP: 95 / 55 HR: 71 Rhythm: Sinus Technical Quality: GOOD MEASUREMENTS (Male / Female) Normal Values 2D ECHO LV Diastolic Diameter PLAX 4.5 cm 4.2 - 5.9 / 3.9 - 5.3 cm LV Systolic Diameter PLAX 1.9 cm IVS Diastolic Thickness 1.0 cm 0.6 - 1.0 / 0.6 - 0.9 cm IVS Systolic Thickness 1.3 cm LVPW Diastolic Thickness 1.1 cm 0.6 - 1.0 / 0.6 - 0.9 cm LVPW Systolic Thickness 1.2 cm LVOT Diameter 2.0 cm LV Ejection Fraction 2D Teich 87.6 % LV Ejection Fraction MOD 2C 58.3 % LV Ejection Fraction 2C AL 56.6 % LA Diameter 3.7 cm LA Width 3.7 cm LA Height 4.3 cm RA Width 3.7 cm RA Height 4.3 cm Aorta at Sinotubular Diameter 3.0 cm M-MODE LV Diastolic Diameter MM 5.3 cm 4.2 - 5.9 / 3.9 - 5.3 cm LV Systolic Diameter MM 3.8 cm LV Ejection Fraction MM Teich 54.8 % IVS Diastolic Thickness MM 1.1 cm 0.6 - 1.0 / 0.6 - 0.9 cm IVS Systolic Thickness MM 1.7 cm LVPW Diastolic Thickness MM 1.4 cm 0.6 - 1.0 / 0.6 - 0.9 cm LVPW Systolic Thickness MM 1.7 cm RV Diastolic Diameter MM 1.0 cm Aortic Annulus Diameter 3.4 cm LA Ao Ratio MM 1.1 MV E Point Septal Separation 1.2 cm DOPPLER AV Peak Velocity 137.0 cm/s LVOT Peak Velocity 107.0 cm/s AV Area Cont Eq vti 2.7 cm squared AV Area Cont Eq pk 2.5 cm squared MV Area PHT 5.0 cm squared Mitral E to A Ratio 1.1 MV E' Velocity 38.5 cm/s Mitral E to MV E' Ratio 6.5 Mitral E to LV E' Lateral Ratio 6.7 Mitral E to LV E' Septal Ratio 6.2 TR Peak Velocity 209.3 cm/s TR Peak Gradient 17.5 mmHg TV Peak E Velocity 99.0 cm/s Right Atrial Pressure 3.0 mmHg Pulmonary Artery Systolic Pressu 20.5 mmHg PV Peak Velocity 84.0 cm/s RV Acceleration Time 0.1 s RV Ejection Time 0.4 s RV AcT/ET 0.2 FINDINGS Left Ventricle Normal left ventricular size. LV systolic function is normal with no regional wall motion abnormalities. LVEF is 55-60%. Diastolic function is normal Right Ventricle The right ventricle is normal in size and function. Right Atrium The right atrium is normal in size. Left Atrium The left atrium is normal in size. Mitral Valve Structurally normal mitral valve without significant stenosis or prolapse. Trace mitral regurgitation is seen Aortic Valve Structurally normal aortic valve without significant sclerosis or stenosis. There is no aortic regurgitation. Tricuspid Valve Structurally normal tricuspid valve without significant stenosis or regurgitation. Insufficient TR jet to calculate RVSP Pulmonic Valve Structurally normal pulmonic valve without significant stenosis. There is no pulmonic regurgitation. Pericardium Normal pericardium without effusion. Aorta Normal ascending aorta dimension. CONCLUSIONS LV systolic function is normal with LVEF of 55-60% Diastolic function is normal Trace mitral regurgitations is seen Compared to prior echocardiogram from 09/25/2014, no significant changes are noted Florentino Fung MD (Electronically Signed) Final Date: 13 October 2020 10:10 S
[2020-10-13] MEDS: allopurinol 300 mg Tablet PO (09:23)
[2020-10-13] MEDS: magnesium oxide 400 mg tablet PO (09:23)
[2020-10-13] MEDS: pantoprazole DR 40 mg Tablet PO (09:23)
[2020-10-13] MEDS: duloxetine 60 mg Capsule PO (09:23)
[2020-10-13] MEDS: potassium chloride ER 20 mEq Tablet PO ×2 (09:24→10:35)
[2020-10-13] MEDS: metoprolol tartrate 50 mg Tablet PO (09:24)
[2020-10-13] MEDS: apixaban 5 mg Tablet PO ×2 (09:24→20:52)
--- NOTE | 2020-10-13 10:26 | PC.CHAP ---
Pastoral Care Encounter/Spiritual Assessment Type of Contact [] Declined building architect visit [] Patient/Family/Request visit [] Outpatient visit [] Follow-up visit [] Physician referral [] Code/Alert [x] Routine visit [] Staff referral [] Actively dying [] Patient sleeping [] Family support [] [] Out of room [] Palliative care [] [] Receiving care in room [] Pre-surgical visit [] Trauma [] Long length of stay [] ICU visit [] Other: Relational/Emotional Strength [] Patient feels connected with others/family/visitors/staff [] Distress [] Loneliness/isolation [] Abandonment Spirituality of Patient [] Person of Libertad [] Attends Temple of their Libertad [] Believes in Prayer [] Reads Bible or Yazidism materials [] There are Spiritual issues to be addressed Truck 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 Interventions [x] Prayer [x] Active listening [x] Non-anxious presence [x] Spiritual/emotional support [] Crisis/trauma care [] Spiritual counseling [] Bereavement support [] Provided bereavement packet [] Provided Bible/devotional materials [] Provided toy/stuffed animal, coloring book to patient or family member [] Provided Communion [] Anointing/[place] [] Salvation [x] Completed spiritual assessment [] Other: Impact on Illness or Injury [] Angry [] Fearful [] Anxious [] Often cries [] Exhaustion [] Unable to work [] Unable to attend anabaptist [] Unable to walk/stand [] Unable to read [] Unable to drive [] Unable to eat/drink [] Unable to sleep [] Unable to be with family [] Patient intubated [] Other: Summary patient is an acquaintance of patient... taoist attendance.. patient requested bag of M&Ms building architect got from cafeteria after checking with nurse Time spent with patient 15 min
--- NOTE | 2020-10-13 11:34 | P.CONIM_ITS ---
Providers/Reason For Consult Consulting Physican/Specialty*: MICHAEL Lake MD/cardiology Reason for Consult*: Patient with recurrent episodes of atrial fibrillation, highly symptomatic with chest pain and elevated troponin T Attending Physician: Fish Beaulieu Primary Care Provider: Chau Holloway DO History of Present Illness History of Present Illness Kenneth Barry is a 65 year old male with a history of atrial fibrillation, apparently been in his baseline state of health up until the ninth of this month when he presented to the emergency room with complaints of nausea, vomiting, chest discomfort and palpitations. In the emergency room, he was found to be in atrial fibrillation with rapid ventricular rate. He was started on IV Cardizem. Subsequently converted to sinus rhythm. He was taking metoprolol 50 mg in the morning at home. The dose of the medication was increased to 50 mg p.o. twice daily and the patient was discharged home. According to the patient, he might have have felt okay for few hours. He has been having nausea and vomiting for the last 3 to 4 days.. Since there was no improvement of the symptoms, he decided to come back to the hospital. He was having nausea with few episodes of vomiting. No diarrhea. No fever or chills. No cough. No unusual shortness of breath. He has been compliant with medications. This time also, in the emergency room, he was found to be in atrial fibrillation with rapid ventricular rate. He was started on Cardizem drip. He was admitted to hospital for further evaluation management. While being in the telemetry floor, he converted to sinus rhythm. Few hours later, he again went back into atrial fibrillation. For that reason, he was placed back on the IV Cardizem. Currently he is on IV Cardizem and p.o. metoprolol. His symptoms almost subsided. He was tested for COVID- 19 and was found to be negative. Denies any other specific complaints. Patient is known to have chronic pain in the joints. He had multiple orthopedic surgeries. Recently underwent back surgery in [place]. He is on pain medications. He has a history of substance abuse but none recently. He is on long-term oral anticoagulation for the atrial fibrillation. Review of Systems Narrative: CONSTITUTIONAL: No fever or chills. EYES: No blurring of vision or other visual disturbances lately. ENT: No hoarseness of voice, auditory disturbances or sore throat. CARDIOVASCULAR: As mentioned above. RESPIRATORY: No significant cough. GASTROINTESTINAL: Nausea and vomiting as mentioned above GENITOURINARY: No dysuria or hematuria. INTEGUMENTARY: No skin rashes or history of skin cancer. NEURO: History of posttraumatic distress disorder./Generalized anxiety PSYCHIATRIC: No history of psychosis or major depression. HEMATOLOGIC: On long-term oral anticoagulation ENDOCRINE: No history of polyuria or polydipsia. MUSCULOSKELETAL: Multiple orthopedic surgeries as mentioned above ALLERGY/IMMUNOLOGY: As mentioned above. Meds/Allergies Home Medications and Allergies Home Medications Medication Instructions Recorded Confirmed Last Taken Type acyclovir 5 % topical cream 1 applic TOPICAL DAILY PRN gm 10/17/19 10/12/20 07/20/20 History cetirizine 10 mg tablet 10 mg PO DAILY PRN 10/17/19 10/12/20 07/20/20 History cyclobenzaprine 10 mg tablet 10 mg PO TID PRN tab 10/17/19 10/12/20 07/20/20 History diphenhydramine HCl 25 mg tablet 25 mg PO BID PRN tab 10/17/19 10/12/20 Unknown History lactase 9,000 unit tablet 9,000 unit PO DAILY tab 10/17/19 10/12/20 07/20/20 History magnesium oxide 400 mg PO DAILY cap 10/17/19 10/12/20 10/12/20 History pantoprazole 40 mg tablet,delayed 40 mg PO DAILY tab 10/17/19 10/12/20 10/12/20 History release triamcinolone acetonide 55 mcg 1 spray INTRANASAL DAILY 10/17/19 10/12/20 07/20/20 History nasal spray aerosol allopurinol 300 mg tablet 300 mg PO DAILY tab 11/27/19 10/12/20 10/11/20 History amlodipine 10 mg tablet 10 mg PO DAILY tab 11/27/19 10/12/20 07/21/20 05:00 History potassium chloride 20 mEq oral 20 meq PO DAILY each 11/27/19 10/12/20 10/12/20 History packet ASO ankle brace #1 ea 12/25/19 10/12/20 Unknown Rx Custom Orthotics #1 ea 04/29/20 10/12/20 Unknown Rx apixaban 5 mg tablet 5 mg PO BID #180 tab 06/24/20 10/12/20 10/12/20 Rx hydrocodone-acetaminophen [[place]] 1 tab PO Q4H PRN #20 tab 07/21/20 10/12/20 Unknown Rx duloxetine 60 mg capsule,delayed 60 mg PO DAILY #30 cap 09/07/20 10/12/20 Unknown Rx release metoprolol tartrate 50 mg PO BID #60 tab 10/06/20 10/12/20 10/12/20 Rx mirtazapine 30 mg PO BEDTIME 10/06/20 10/12/20 10/11/20 History ondansetron 4 mg PO Q8H PRN 10/12/20 10/12/20 Unknown History Allergies Allergy/AdvReac Type Severity Reaction Status Date / Time codeine Allergy Severe ALGY-Hives Verified 10/14/20 00:00 meperidine [From Demerol] Allergy Severe ADR-Itching Verified 09/17/20 09:45 oxycodone Allergy Severe ADR-Itching Verified 09/17/20 09:45 Current Medications Current Medications Generic Name Dose Route Start Last Admin Trade Name Freq PRN Reason Stop Dose Admin Hydrocodone Bitart/Acetaminophen 1 tab 10/12/20 19:02 10/12/20 20:04 Hydrocodone-Acetaminophen 5-325 Mg Tablet PO 1 tab Q4H PRN Administration pain Allopurinol 300 mg 10/13/20 09:00 10/13/20 09:23 Allopurinol 300 Mg Tablet PO 300 mg DAILY ANTONIO Administration Apixaban 5 mg 10/13/20 09:15 10/13/20 09:24 Apixaban 5 Mg Tablet PO 5 mg Q12H ANTONIO Administration Duloxetine HCl 60 mg 10/13/20 09:00 10/13/20 09:23 Duloxetine 60 Mg Capsule PO 60 mg DAILY ANTONIO Administration Sodium Chloride 1,000 mls @ 100 mls/hr 10/13/20 05:00 10/13/20 04:32 Sodium Chloride 0.9% IV 100 mls/hr .Q10H ANTONIO Administration Magnesium Oxide 400 mg 10/13/20 09:00 10/13/20 09:23 Magnesium Oxide 400 Mg Tablet PO 400 mg DAILY ANTONIO Administration Mirtazapine 30 mg 10/12/20 21:00 10/12/20 20:03 Mirtazapine 15 Mg Tablet PO 30 mg BEDTIME ANTONIO Administration Non-Formulary Medication 9,000 unit 10/13/20 09:00 10/13/20 09:24 Lactase PO Not Given DAILY ANTONIO Non-Formulary Medication 1 spray 10/13/20 09:00 10/13/20 09:24 Triamcinolone Acetonide [Children's Nasacort] INTRANASAL Not Given DAILY ANTONIO Pantoprazole Sodium 40 mg 10/13/20 09:00 10/13/20 09:[address] 40 Mg Tablet PO 40 mg DAILY ANTONIO Administration Potassium Chloride 20 meq 10/13/20 09:00 10/13/20 09:24 Potassium Chloride Er 20 Meq Tablet PO 20 meq DAILY ANTONIO Administration PFSH Acute PFSH: Medical History Anxiety Back pain Depressive disorder Diabetes Edema, peripheral Foraminal stenosis of cervical region Hypertension Neck pain New onset atrial fibrillation Shoulder pain, bilateral Surgical History Fusion of lumbar spine H/O shoulder surgery History of penile implant Hx of cholecystectomy Status post cervical spinal fusion 07/18/2019 C3-C4 ACDFF Family History Other Cancer Paroxysmal A-fib Stroke Social History Smoking and tobacco status: former smoker Alcohol intake: never Substance/Drug Use: current Other substance/drug use details: Occ MJ Lives independently: Yes Household members: none Marital status: Current occupational status: retired and disabled History of recent travel: No Vitals/I&O/Wt Last Vital Signs Temp 98.3 F 10/13/20 11:01 Pulse 72 10/13/20 11:01 Resp 23 H 10/13/20 11:01 BP 134/66 10/13/20 11:01 Pulse Ox 100 10/13/20 11:01 10/12/20 10/13/20 10/13/20 22:59 06:59 14:59 Intake Total 1232.75 / 1735.50 2192 / 3927.50 720 / 720 Output Total 100 / 100 Balance 1132.75 / 1635.50 2192 / 3827.50 720 / 720 Weight last 48 hrs Weight 190 lb Physical Exam Narrative: EXAM NARRATIVE: GENERAL: The patient is alert and oriented times three. Not in any acute distress. Somewhat anxious HEENT: No significant pallor, icterus or lymphadenopathy. The pupils are reactant to light. Oral cavity: There are no mucous membrane lesions. Funduscopic examination: The fundus is not visualized NECK: Trachea appears to be central. No masses noted. No JVD or thyromegaly appreciated. No carotid bruit. RESPIRATORY: Chest is symmetrical. No intercostals muscle retraction or any accessory muscle activation. There is no chest wall tenderness. Breath sounds are heard bilaterally. No rales or rhonchi heard. No evidence of any consolidation. BREASTS: Deferred. HEART: The heart sounds are normal no S3-S4. Short systolic murmur the left sternal border. No diastolic murmurs. ABDOMEN: No vessel pulsations or distention. No tenderness. No organomegaly appreciated. No abdominal bruit. Bowel sounds are normally heard. : Deferred. RECTAL: Deferred. LYMPHATIC: No lymphadenopathy noted in the neck or groin. EXTREMITIES: No edema cyanosis. Peripheral pulses are palpable but somewhat weak MUSCULOSKELETAL: No acute joint deformities or swelling SKIN: There are no significant scars or skin rash noted. NEUROPSYCHIATRIC: The patient is alert and oriented x3. Appears to be in a good mood. The higher functions are grossly within normal limits. No tremors or rigidity noted. Data Labs: Other Labs: Laboratory Last Values WBC 9.2 10^3/uL (4.0- 10.0) 10/13/20 04:57 RBC 3.96 10^6/uL (4.1 -5.3) L 10/13/20 04:57 Hgb 12.1 g/dL (11.7-1 6.6) 10/13/20 04:57 Hct 36.5 % (42.0-52.0 ) L 10/13/20 04:57 MCV 92.2 fL (80-94) 10/13/20 04:57 MCH 30.6 pg (28.0-34. 0) 10/13/20 04:57 MCHC 33.2 g/dL (30.0-3 6.0) 10/13/20 04:57 RDW 13.2 % (12.1-15.1 ) 10/13/20 04:57 Plt Count 248 10^3/cmm (130 -400) 10/13/20 04:57 MPV 10.3 fL (7.4-10.4 ) 10/13/20 04:57 Neut % (Auto) 40.4 % 10/13/20 04:57 Lymph % (Auto) 38.2 % 10/13/20 04:57 Sharp % (Auto) 7.9 % 10/13/20 04:57 Eos % (Auto) 12.2 % 10/13/20 04:57 Baso % (Auto) 1.0 % 10/13/20 04:57 Neut # (Auto) 3.73 10^3/uL (1.8 -7.7) 10/13/20 04:57 Lymph # (Auto) 3.5 10^3/uL (0.8- 4.8) 10/13/20 04:57 Sharp # (Auto) 0.7 10^3/uL (0.2- 0.9) 10/13/20 04:57 Eos # (Auto) 1.1 10^3/uL (0.0- 0.8) H 10/13/20 04:57 Baso # (Auto) 0.1 10^3/uL (0.0- 0.1) 10/13/20 04:57 Nucleated RBC % (a uto) 0 % 10/13/20 04:57 Nucleated RBCs # 0.0 /100WBC 10/13/20 04:57 Sodium 134 mmol/L (136-1 45) L 10/13/20 04:57 Potassium 3.4 mmol/L (3.5-5 .1) L 10/13/20 04:57 Chloride 99 mmol/L (98-107 ) 10/13/20 04:57 Carbon Dioxide 25 mmol/L (22-29) 10/13/20 04:57 Anion Gap 13.4 (5-19) 10/13/20 04:57 BUN 23 mg/dL (8-23) 10/13/20 04:57 Creatinine 0.9 mg/dL (0.7-1. 2) 10/13/20 04:57 GFR Calculation 84.7 mL/min (90-1 30) L 10/13/20 04:57 Glucose 131 mg/dL (65-115 ) H 10/13/20 04:57 Calculated Osmolal ity 283 mOsm/kg (285- 295) L 10/13/20 04:57 Calcium 9.1 mg/dL (8.5-10 .5) 10/13/20 04:57 Magnesium 1.9 mg/dL (1.7-2. 3) 10/12/20 19:20 Total Bilirubin 0.3 mg/dL (0.15-1 .2) 10/13/20 04:57 AST 12 U/L (0-40) 10/13/20 04:57 ALT 11 U/L (0-41) 10/13/20 04:57 Alkaline Phosphata se 114 IU/L (40-130) 10/13/20 04:57 Troponin T Baselin e 28 ng/L (0-15) H 10/12/20 14:10 Troponin T 120 Min toni 24.17 ng/L (0-15) H 10/12/20 19:20 Delta Troponin T -3.83 ABS# (0-10) L 10/12/20 19:20 Troponin T Hi Sens 6Hr 23.58 ng/L (0-15) H 10/12/20 21:53 Troponin T Hi Sens 6Hr Delta -4.42 ng/L (0-12) L 10/12/20 21:53 Total Protein 6.3 g/dL (6.6-8.7 ) L 10/13/20 04:57 Albumin 3.7 g/dL (3.5-5.2 ) 10/13/20 04:57 Globulin 2.6 g/dL (1.3-4.6 ) 10/13/20 04:57 Urine Color Yellow (Yellow) 10/12/20 18:12 Urine Appearance Clear (CLEAR) 10/12/20 18:12 Urine pH 7 (5-7) 10/12/20 18:12 Ur Specific Gravit y 1.015 (1.005-1.0 30) 10/12/20 18:12 Urine Protein Neg (Negative) 10/12/20 18:12 Urine Glucose (UA) Norm (Normal) 10/12/20 18:12 Urine Ketones Negative (Negati ve) 10/12/20 18:12 Urine Blood Neg (Negative) 10/12/20 18:12 Urine Nitrate Negative (Negati ve) 10/12/20 18:12 Urine Bilirubin Neg (Negative) 10/12/20 18:12 Urine Urobilinogen Norm mg/dL (Negat jany) 10/12/20 18:12 Ur Leukocyte Annabelle ase Negative (Negati ve) 10/12/20 18:12 Imaging^: Echo: My impression: Echocardiogram done on 10/13/2020 revealed LV systolic function is normal with LVEF of 55-60% Diastolic function is normal Trace mitral regurgitations is seen Compared to prior echocardiogram from 09/25/2014, no significant changes are noted EKG^: EKG 1: My Interpretation: The EKG showed atrial fibrillation with rapid ventricular rate of [address]-T changes. EKG 2: My Interpretation: EKG done overnight 10/06/2020 revealed normal sinus rhythm with first-degree AV block. QTC of 521 A&P Assessment and plan (1) Atrial fibrillation with rapid ventricular response: Patient seems to have intermittent highly symptomatic episodes of atrial fibrillation. Currently again he is back into the normal sinus rhythm. For further management of his condition, it may be appropriate to start him on antiarrhythmic drug. I may start him on Betapace 80 mg now and twice daily. He needs to be closely monitored on telemetry for the next 48 hours. Will be closely watching for any proarrhythmic effect. I may discontinue the metoprolol at this time. We will go ahead and do a baseline EKG now and then daily EKG x3. Based on his clinical response, further management decisions will be made. Status: Acute (2) Hypokalemia: This needs to be corrected. Status: Acute (3) Atypical chest pain: It may be appropriate to go ahead and do a myocardial perfusion imaging, to further evaluate for any underlying coronary ischemia. Most likely the elevated troponin T is related to the arrhythmia. Status: Acute (4) Generalized anxiety disorder: May continue on the current treatment measures. Status: Acute (5) Hypertension: Currently the blood pressure is under control. We will continue on the current medications. Status: Acute Qualifiers: Hypertension type: essential hypertension Qualified Code(s): I10 - Essential (primary) hypertension (6) Posttraumatic stress disorder: Continue on the current treatment measures. Management as per the primary Status: Acute Additional A&P Information The problems are Mild hypokalemia History of a gouty arthritis Chronic pains GERD -stable Based on the results of the test and the patient's clinical progress, further recommendations will be made. Thank you for the opportunity to evaluate this patient and make these recommendations. Coding Level of Care Code Acute Correctional Counselor for [employer] Fwd History Comprehensive Exam Detailed Medical Decision Making High Complexity Diagnoses Atrial fibrillation with rapid ventricular response I48.91 Hypokalemia E87.6 Atypical chest pain R07.89 Generalized anxiety disorder F41.1 Hypertension I10 Hypertension type: essential hypertension Posttraumatic stress disorder F43.10
--- NOTE | 2020-10-13 12:00 | PC.NURSE ---
Telephone order from Dr. Lake to obtain baseline EKG before administering first dose of sotalol.
--- NOTE | 2020-10-13 12:02 | ECG_ITS ---
[facility] Test Date: 2020-10-13 Pat Name: Kenneth Barry Department: Room: 102 Gender: Male Assistant Produce Manager: : 1955 Requested By: Jacquelin Lake Order Number: [id number] Maira MD: Estrella Coleman M.D. Measurements Intervals [place] Rate: 67 P: 149 [place]: 200 QRS: 148 QRSD: 89 T: 149 QT: 434 QTc: 459 Interpretive Statements SINUS RHYTHM ARM LEADS REVERSED [INVERTED P AND QRS IN I] ATYPICAL ECG Compared to ECG 10/12/2020 15:30:04 Atrial fibrillation no longer present T-wave abnormality no longer present Electronically Signed On 10-13-2020 17:53:02 VAULT CASHIER by Estrella Coleman M.D. [id number] denisa
--- NOTE | 2020-10-13 12:30 | PC.NURSE ---
Dr. Lake updated on patient QTc, 459. Telephone order to administer sotalol now. Recheck BP in 30 minutes to 1 hour. RBTO.
[2020-10-13] MEDS: sotalol 80 mg Tablet PO ×2 (12:33→20:51)
[2020-10-13] MEDS: HYDROcodone-acetaminophen 5-325 mg Tablet 1 TAB PO (14:50)
--- NOTE | 2020-10-13 15:16 | PC.NURSE ---
BP reassessed. BP 85/61. Dr. Lake at bedside. Verbal order to administer 250 ml bolus at 999 ml/hr. Reassess BP in 30 minutes and notify provider. Verbal order to hold evening dose of sotalol if SBP <110. If dose is administered, recheck BP in one hour. If BP is low call shuttlecock assembler cement mason. RBVO.
--- NOTE | 2020-10-13 17:35 | PM.PN ---
Subjective Subjective: Interval history: Today he is doing better. Last night converted to sinus rhythm. Cardizem drip was discontinued. He denies chest pain. His symptoms did improve after rhythm converted. Vitals/I&O/Wt Last Vital Signs Temp 98.1 F 10/13/20 16:00 Pulse 68 10/13/20 16:00 Resp 17 10/13/20 16:00 BP 110/66 10/13/20 16:00 Pulse Ox 98 10/13/20 16:00 10/13/20 10/13/20 10/13/20 06:59 14:59 22:59 Intake Total 2192 / 3927.50 2079 1191.367 / 3271.367 Output Total 250 / 250 Balance 2192 / 3827.50 2079 941.367 / 3021.367 Weight last 48 hrs Weight 86.183 kg Physical Exam Const: COMMON NORMALS: no acute distress and patient oriented x3 HENMT: COMMON NORMALS: oropharynx normal Neck/C-Spine: COMMON NORMALS: no JVD Resp: COMMON NORMALS: normal respiratory effort and clear to auscultation bilaterally AUSCULTATION: clear to auscultation bilaterally Cardio: COMMON NORMALS: no JVD, regular rhythm, S1 normal heart sound present, S2 normal heart sound present and No murmurs present (Cardio) RHYTHM: regular rhythm HEART SOUNDS: S1 normal heart sound present and S2 normal heart sound present GI: COMMON NORMALS: Normal to inspection, nondistended, normoactive bowel sounds present, Soft to palpation and non-tender PALPATION: Yes Soft to palpation Extremity: COMMON NORMALS: no joint enlargement and no pedal edema Neuro: COMMON NORMALS: patient oriented x3 and moves all extremities Skin: COMMON NORMALS: no rashes or lesions noted GENERAL SKIN EXAM: no rashes or lesions noted Data : 10/13/20 04:57 10/13/20 04:57 A&P Assessment and plan (1) Atrial fibrillation with rapid ventricular response: Due to recurrent episodes of A. fib with RVR, without very good trigger, apart from minimal hypokalemia, discussed with his clerical dentist assistant. Appreciate additional assessment and recommendations to prevent recurrent episodes. Continue Eliquis. Status: Acute (2) Chest pain: Appreciate cardiology assessment. We will go ahead and request for stress testing for tomorrow. Troponin abnormality suspect is secondary to arrhythmia, however, with recurrent episodes of A. fib with RVR, without obvious trigger, he is agreeable for additional assessment with stress testing once heart rate is better controlled. Status: Acute (3) Hypokalemia: Replace. Magnesium 1.9. Receiving oral supplementation. Status: Acute (4) Leukocytosis: Resolved. No suggestion of active infection. Monitor for any changes in symptoms. He reports dyspnea exertion, however, denies other respiratory symptoms to suggest upper or lower respiratory tract infection. Says he had surgery about 2 weeks ago and at that time was tested for coronavirus was negative. Denies fevers, chills, denies cough, shortness of breath. Chest x-ray is unremarkable. He does state that his urine has been having sweet odor to it. UA unremarkable. Status: Acute Additional A&P Information Recent lumbar spine surgery: Wound appears to have healed well. No erythema surrounding the scar. No opening or drainage. He does report pain after recent fall. No fractures or hardware failure on x-ray. Prediabetes Alk phos elevation: Noted incidentally, 149. Suspect this is related to his recent surgery. Will check GGT. No abdominal pain currently. CT abdomen pelvis unremarkable. Status post cholecystectomy. Attestations Medical Necessity Statement*: Continue admission for assessment management of recurrent A. fib with RVR, symptomatic, chest pain, troponin abnormality. Coding Level of Care Code Acute Steam Room Attendant for [facility] Fwd Diagnoses Atrial fibrillation with rapid ventricular response I48.91 Chest pain R07.9 Hypokalemia E87.6 Leukocytosis D72.829
[2020-10-13 18:44] LABS: Gamma Glutamyl Transferase 25 U/L (8-61)
--- NOTE | 2020-10-13 19:53 | PC.NURSE ---
PT REQUESTED A SHOWER. PT IS IN THE SHOWER AT THIS TIME. PT DENIES PAIN. WILL CONTINUE TO MONITOR.
--- NOTE | 2020-10-13 22:10 | PC.NURSE ---
AT 2049 TO MANUAL BP 112/64 SOTALOL WAS GIVEN AND BP RECHECKED ABOUT 1HR LATER BP 106/63.
[2020-10-13] MEDS: zolpidem 5 mg Tablet PO (22:12)
[2020-10-14] VITALS (9 sets, daily range): BP systolic 100–138; BP diastolic 60–82; PULSE 59–88; RESP 15–21; TEMP 36.5–37.2; O2SAT 95–100
--- NOTE | 2020-10-14 06:39 | PC.NURSE ---
PT IS RESTING IN BED PT DENIES PAIN AT THIS TIME. WILL CONTINUE TO MONITOR.
--- NOTE | 2020-10-14 07:07 | ECG_ITS ---
[facility] Test Date: 2020-10-14 Pat Name: Kenneth Barry Department: Room: 112 Gender: Male Development Educator: : 1955 Requested By: Jacquelin Lake Order Number: [id number] Maira MD: Jacqeulin Lake M.D. Interpretive Statements NAME OF STUDY: LEXISCAN SESTAMIBI STRESS TEST INDICATION: Chest pain, elevated trop t, PROCEDURE: At the baseline, the EKG reveal normal sinus rhythm with a first-degree AV block. Normal ST-T's. Ed. The baseline blood pressure was 120/74 mm Hg with a heart rate of 63 beats/min. Lexiscan was infused over a period of 20 seconds. A total of 0.4 milligrams of Lexiscan was infused. The stress phase was continued for a total of 5 minutes. Heart rate at the end of the stress phase was 78 with a blood pressure 130/68. The EKG at the peak infusion revealed no significant changes. Sestamibi was injected 20 seconds after the Lexiscan infusion. Blood pressure at the end of the recovery phase was 138/70 with a heart rate of 78 per minute. CONCLUSION: 1. No significant EKG changes with the LexiScan infusion 2. No LexiScan induced chest pain or cardiac arrhythmia 3. Normal blood pressure and heart rate response 4. Sestamibi/sestamibi perfusion scan pending; see separate report. Electronically Signed On 10-14-2020 13:03:37 COLLAR TACKER by Jacquelin Lake M.D. [id number]
--- NOTE | 2020-10-14 07:08 | NMCV_ITS ---
NM jenni perf SPECT r/s* [id number] Kenneth Barry Age: 65 Gender: M : 1955 Exam Date: 10/14/2020 07:10 Ordering Phys: Jacquelin Lake MD Technologist: MATHIEU Palm Exam Location: [facility] Indications: WEAKNESS, N/V AFIB RELATED ISSUES STRESS TEST Please see separate stress test report in [facility] for full findings IMAGE PROTOCOL Rest/Stress 1 Lexiscan Day Radiopharmaceutical Dose (mCi) Administration Site Administered by Rest: Tc-99m 10.8 IV MATHIEU Johnson Sestamibi Stress:Tc-99m 32.4 IV MATHIEU Johnson Sestamibi Rest: 14-Oct-2020 60 Discovery 630 Stress: 14-Oct-2020 30 Discovery 630 0.4mg Lexiscan. Images obtained in supine and prone position. SPECT RESULTS Technical Quality: Excellent Raw Data Analysis: Normal Image Corrections: No attenuation or motion correction applied Summed Stress Score: 8 Summed Rest Score: 6 Summed Difference Score: 2 PERFUSION FINDINGS Moderate area of decreased tracer uptake was noted in the basal mid and apical inferior, mid inferoseptal and mid anteroseptal regions, with the supine imaging. However the prone imaging, there is fairly uniform myocardial tracer uptake. Some reversibility was noted in the apical and basal inferior segments with the supine imaging. No significant reversibility was noted with the prone imaging. FUNCTIONAL RESULTS (calculated via Gated SPECT) Stress Image LV EF (%): 65 Stress EDV (mL):108 TID: 1 Stress ESV (mL):38 FUNCTIONAL FINDINGS: Segmental wall motion analysis revealing no gross wall motion normalities. IMPRESSIONS 1. Myocardial perfusion imaging revealing a small area of inconsistent reversible defect in the inferior wall region, most likely artifactual. 2. Normal LV ejection fraction of 65% 3. LV wall motion analysis revealing no gross wall motion normalities. 4. Normal LV volume. Possibly no significant coronary ischemia, based on the above finding Dr Jacquelin Lake MD FACC (Electronically Signed) Final Date: 14 October 2020 12:57 C MTDD
[2020-10-14] MEDS: regadenoson 0.4 Mg/5 ml Syringe IVP (08:27)
--- NOTE | 2020-10-14 09:13 | PC.NURSE ---
PT RESTING IN BED AT THE TIME OF AM ASSESSMENT. PT TAKEN TO ALYCIA @ 5045.
--- NOTE | 2020-10-14 09:53 | PM.PN ---
Subjective Subjective: Interval history: Patient is feeling okay. No chest pain or palpitations. He had a myocardial perfusion imaging today. He was found to have small area of inconsistent reversible defect in the inferior wall, possibly artifactual. He is tolerating the Betapace so far well. The QTC on the EKG from today was 470. Medications: Reviewed: Yes Medication Review Details: Laboratory Last Values Current Medications Acetaminophen (Acetaminophen 325 Mg Tablet) 650 mg PO Q6H PRN PRN Reason: Mild/Mod Pain Or Temp >/= 101 Hydrocodone Bitart/Acetaminophen (Hydrocodone-Acetaminophen 5-325 Mg Tablet) 1 tab PO Q4H PRN PRN Reason: pain Allopurinol (Allopurinol 300 Mg Tablet) 300 mg PO DAILY [facility] Last Admin: 10/13/20 09:23 Dose: 300 mg Documented by: Aminophylline (Aminophylline 25 Mg/Ml Sdv 10 Ml) 25 mg IVP Q2M PRN PRN Reason: see dose instructions Stop: 10/15/20 07:07 Apixaban (Apixaban 5 Mg Tablet) 5 mg PO Q12H [facility] Last Admin: 10/13/20 20:52 Dose: 5 mg Documented by: Cyclobenzaprine HCl (Cyclobenzaprine 10 Mg Tablet) 10 mg PO TID PRN PRN Reason: muscle spasm Duloxetine HCl (Duloxetine 60 Mg Capsule) 60 mg PO DAILY [facility] Last Admin: 10/13/20 09:23 Dose: 60 mg Documented by: Sodium Chloride (Sodium Chloride 0.9%) 1,000 mls @ 100 mls/hr IV .Q10H [facility] Last Admin: 10/13/20 23:56 Dose: 100 mls/hr Documented by: Magnesium Oxide (Magnesium Oxide 400 Mg Tablet) 400 mg PO DAILY [facility] Last Admin: 10/13/20 09:23 Dose: 400 mg Documented by: Mirtazapine (Mirtazapine 15 Mg Tablet) 30 mg PO BEDTIME [facility] Last Admin: 10/13/20 20:55 Dose: Not Given Documented by: Nitroglycerin (Nitroglycerin 0.4 Mg Sublingual Tablet) 0.4 mg SUBLINGUAL Q5M PRN PRN Reason: CHEST PAIN Stop: 10/15/20 07:07 Non-Formulary Medication (Lactase) 9,000 unit PO DAILY [facility] Last Admin: 10/13/20 09:24 Dose: Not Given Documented by: Non-Formulary Medication (Triamcinolone Acetonide [Children's Nasacort]) 1 spray INTRANASAL DAILY [facility] Last Admin: 10/13/20 09:24 Dose: Not Given Documented by: Ondansetron HCl (Ondansetron 2 Mg/Ml Sdv 2 Ml) 4 mg IVP Q6H PRN PRN Reason: NAUSEA AND VOMITING Ondansetron HCl (Ondansetron 4 Mg Tablet) 4 mg PO Q8H PRN PRN Reason: Nausea Ondansetron HCl (Ondansetron 2 Mg/Ml Sdv 2 Ml) 4 mg IVP Q2M PRN PRN Reason: NAUSEA Pantoprazole Sodium (Pantoprazole Dr 40 Mg Tablet) 40 mg PO DAILY [facility] Last Admin: 10/13/20 09:23 Dose: 40 mg Documented by: Potassium Chloride (Potassium Chloride Er 20 Meq Tablet) 20 meq PO DAILY [facility] Last Admin: 10/13/20 09:24 Dose: 20 meq Documented by: Sotalol HCl (Sotalol 80 Mg Tablet) 80 mg PO BID@0900,2100 [facility] Last Admin: 10/13/20 20:51 Dose: 80 mg Documented by: Zolpidem Tartrate (Zolpidem 5 Mg Tablet) 5 mg PO BEDTIME PRN PRN Reason: SLEEP Last Admin: 10/13/20 22:12 Dose: 5 mg Documented by: Vitals/I&O/Wt Last Vital Signs Temp 98.1 F 10/14/20 03:41 Pulse 78 10/14/20 08:38 Resp 19 H 10/14/20 03:41 BP 138/70 10/14/20 08:38 Pulse Ox 97 10/14/20 03:41 10/13/20 10/14/20 10/14/20 22:59 06:59 14:59 Intake Total 1840.000 / 3920.000 1000 / 4920.000 Output Total 251 / 251 675 / 926 175 / 175 Balance 1589.000 / 3669.000 325 / 3994.000 -175 / -175 Weight last 48 hrs Weight 190 lb Physical Exam Narrative: EXAM NARRATIVE: GENERAL: The patient is alert and oriented times three. Not in any acute distress. Somewhat anxious HEENT: No significant pallor, icterus or lymphadenopathy. The pupils are reactant to light. Oral cavity: There are no mucous membrane lesions. NECK: Trachea appears to be central. No masses noted. No JVD or thyromegaly appreciated. No carotid bruit. RESPIRATORY: Chest is symmetrical. No intercostals muscle retraction or any accessory muscle activation. There is no chest wall tenderness. Breath sounds are heard bilaterally. No rales or rhonchi heard. No evidence of any consolidation. BREASTS: Deferred. HEART: The heart sounds are normal no S3-S4. Short systolic murmur the left sternal border. No diastolic murmurs. ABDOMEN: No vessel pulsations or distention. No tenderness. No organomegaly appreciated. No abdominal bruit. Bowel sounds are normally heard. : Deferred. RECTAL: Deferred. LYMPHATIC: No lymphadenopathy noted in the neck or groin. EXTREMITIES: No edema cyanosis. Peripheral pulses are palpable but somewhat weak MUSCULOSKELETAL: No acute joint deformities or swelling SKIN: There are no significant scars or skin rash noted. NEUROPSYCHIATRIC: The patient is alert and oriented x3. Appears to be in a good mood. The higher functions are grossly within normal limits. No tremors or rigidity noted. Data : 10/13/20 04:57 10/13/20 04:57 Other Labs: Laboratory Last Values WBC 9.2 10^3/uL (4.0-10.0) 10/13/20 04:57 RBC 3.96 10^6/uL (4.1-5.3) L 10/13/20 04:57 Hgb 12.1 g/dL (11.7-16.6) 10/13/20 04:57 Hct 36.5 % (42.0-52.0) L 10/13/20 04:57 MCV 92.2 fL (80-94) 10/13/20 04:57 MCH 30.6 pg (28.0-34.0) 10/13/20 04:57 MCHC 33.2 g/dL (30.0-36.0) 10/13/20 04:57 RDW 13.2 % (12.1-15.1) 10/13/20 04:57 Plt Count 248 10^3/cmm (130-400) 10/13/20 04:57 MPV 10.3 fL (7.4-10.4) 10/13/20 04:57 Neut % (Auto) 40.4 % 10/13/20 04:57 Lymph % (Auto) 38.2 % 10/13/20 04:57 Baxter % (Auto) 7.9 % 10/13/20 04:57 Eos % (Auto) 12.2 % 10/13/20 04:57 Baso % (Auto) 1.0 % 10/13/20 04:57 Neut # (Auto) 3.73 10^3/uL (1.8-7.7) 10/13/20 04:57 Lymph # (Auto) 3.5 10^3/uL (0.8-4.8) 10/13/20 04:57 Baxter # (Auto) 0.7 10^3/uL (0.2-0.9) 10/13/20 04:57 Eos # (Auto) 1.1 10^3/uL (0.0-0.8) H 10/13/20 04:57 Baso # (Auto) 0.1 10^3/uL (0.0-0.1) 10/13/20 04:57 Nucleated RBC % (auto) 0 % 10/13/20 04:57 Nucleated RBCs # 0.0 /100WBC 10/13/20 04:57 Sodium 134 mmol/L (136-145) L 10/13/20 04:57 Potassium 3.4 mmol/L (3.5-5.1) L 10/13/20 04:57 Chloride 99 mmol/L (98-107) 10/13/20 04:57 Carbon Dioxide 25 mmol/L (22-29) 10/13/20 04:57 Anion Gap 13.4 (5-19) 10/13/20 04:57 BUN 23 mg/dL (8-23) 10/13/20 04:57 Creatinine 0.9 mg/dL (0.7-1.2) 10/13/20 04:57 GFR Calculation 84.7 mL/min (90-130) L 10/13/20 04:57 Glucose 131 mg/dL (65-115) H 10/13/20 04:57 Calculated Osmolality 283 mOsm/kg (285-295) L 10/13/20 04:57 Calcium 9.1 mg/dL (8.5-10.5) 10/13/20 04:57 Magnesium 1.9 mg/dL (1.7-2.3) 10/12/20 19:20 Total Bilirubin 0.3 mg/dL (0.15-1.2) 10/13/20 04:57 GGT 25 U/L (8-61) 10/13/20 04:57 AST 12 U/L (0-40) 10/13/20 04:57 ALT 11 U/L (0-41) 10/13/20 04:57 Alkaline Phosphatase 114 IU/L (40-130) 10/13/20 04:57 Troponin T Baseline 28 ng/L (0-15) H 10/12/20 14:10 Troponin T 120 Minute 24.17 ng/L (0-15) H 10/12/20 19:20 Delta Troponin T -3.83 ABS# (0-10) L 10/12/20 19:20 Troponin T Hi Sens 6Hr 23.58 ng/L (0-15) H 10/12/20 21:53 Troponin T Hi Sens 6Hr Delta -4.42 ng/L (0-12) L 10/12/20 21:53 Total Protein 6.3 g/dL (6.6-8.7) L 10/13/20 04:57 Albumin 3.7 g/dL (3.5-5.2) 10/13/20 04:57 Globulin 2.6 g/dL (1.3-4.6) 10/13/20 04:57 Urine Color Yellow (Yellow) 10/12/20 18:12 Urine Appearance Clear (CLEAR) 10/12/20 18:12 Urine pH 7 (5-7) 10/12/20 18:12 Ur Specific Auxier 1.015 (1.005-1.030) 10/12/20 18:12 Urine Protein Neg (Negative) 10/12/20 18:12 Urine Glucose (UA) Norm (Normal) 10/12/20 18:12 Urine Ketones Negative (Negative) 10/12/20 18:12 Urine Blood Neg (Negative) 10/12/20 18:12 Urine Nitrate Negative (Negative) 10/12/20 18:12 Urine Bilirubin Neg (Negative) 10/12/20 18:12 Urine Urobilinogen Norm mg/dL (Negative) 10/12/20 18:12 Ur Leukocyte Esterase Negative (Negative) 10/12/20 18:12 A&P Assessment and plan (1) Atrial fibrillation with rapid ventricular response: Patient seems to be tolerating the Betapace so far well. The QTC was 470. He seems to be staying in the sinus rhythm. May continue on the current medications. Status: Acute (2) Hypokalemia: Patient was given additional potassium yesterday. We will check his BMP Status: Acute (3) Atypical chest pain: The myocardial perfusion imaging results are discussed with the patient. The tests show some inconsistent reversible defect, most likely artifactual. Since he has no recurrence of chest pain, to also be appropriate to continue the current treatment. In the event of a developing any recurrence of chest pain or any new symptoms, we may consider further cardiac work-up. Status: Acute (4) Generalized anxiety disorder: May continue on the current treatment measures. Status: Acute (5) Hypertension: Currently the blood pressure is under control. We will continue on the current medications. Status: Acute Qualifiers: Hypertension type: essential hypertension Qualified Code(s): I10 - Essential (primary) hypertension (6) Posttraumatic stress disorder: Continue on the current treatment measures. Management as per the primary Status: Acute Additional A&P Information The problems are Mild hypokalemia History of a gouty arthritis Chronic pains GERD -stable Will do a repeat EKG in the morning. If the patient continues to remain stable with no new symptoms, we may discharge him home tomorrow. Attestations Medical Necessity Statement*: Patient needs to be closely monitored on telemetry because of the high risk medication. Coding Level of Care Code Acute Irrigation Teacher for [facility] Fwd Diagnoses Atrial fibrillation with rapid ventricular response I48.91 Hypokalemia E87.6 Atypical chest pain R07.89 Generalized anxiety disorder F41.1 Hypertension I10 Hypertension type: essential hypertension Posttraumatic stress disorder F43.10
--- NOTE | 2020-10-14 10:00 | ECG_ITS ---
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 Measurements Intervals Ryan Rate: 71 P: 209 [place]: 120 QRS: 78 QRSD: 93 T: 50 QT: 430 QTc: 470 Interpretive Statements SINUS RHYTHM WITH OCCASIONAL SUPRAVENTRICULAR PREMATURE COMPLEXES Compared to ECG 10/13/2020 12:20:34 No significant changes Electronically Signed On 10-15-2020 16:45:06 SURFBOARD DESIGNER by Florentino Fung M.D. [id number]
[2020-10-14] MEDS: potassium chloride ER 20 mEq Tablet PO ×2 (10:38→19:48)
[2020-10-14] MEDS: pantoprazole DR 40 mg Tablet PO (10:38)
[2020-10-14] MEDS: duloxetine 60 mg Capsule PO (10:38)
[2020-10-14] MEDS: apixaban 5 mg Tablet PO ×2 (10:38→21:56)
[2020-10-14] MEDS: magnesium oxide 400 mg tablet PO (10:38)
[2020-10-14] MEDS: sotalol 80 mg Tablet PO ×2 (10:38→21:56)
[2020-10-14] MEDS: allopurinol 300 mg Tablet PO (10:39)
[2020-10-14] MEDS: sodium chloride 0.9% 1,000 ML 100 ML IV (10:47)
--- NOTE | 2020-10-14 13:16 | PC.NURSE ---
spoke with Dr. Beaulieu about patients fluid order instructions to stop infusion
--- NOTE | 2020-10-14 18:53 | PM.PN ---
Subjective Subjective: Interval history: Feeling better today. No recurrence of chest pain. This is resolved with transition to sinus rhythm. Vitals/I&O/Wt Last Vital Signs Temp 98.0 F 10/14/20 15:37 Pulse 86 10/14/20 15:37 Resp 20 H 10/14/20 15:37 BP 101/65 10/14/20 15:37 Pulse Ox 95 10/14/20 15:37 10/14/20 10/14/20 10/14/20 06:59 14:59 22:59 Intake Total 1000 / 4920.000 1611.667 / 1611.667 240 / 1851.667 Output Total 675 / 926 1075 / 1075 400 / 1475 Balance 325 / 3994.000 536.667 / 536.667 -160 / 376.667 Physical Exam Const: COMMON NORMALS: no acute distress and patient oriented x3 HENMT: COMMON NORMALS: oropharynx normal Neck/C-Spine: COMMON NORMALS: no JVD Resp: COMMON NORMALS: normal respiratory effort and clear to auscultation bilaterally AUSCULTATION: clear to auscultation bilaterally Cardio: COMMON NORMALS: no JVD, regular rhythm, S1 normal heart sound present, S2 normal heart sound present and No murmurs present (Cardio) RHYTHM: regular rhythm HEART SOUNDS: S1 normal heart sound present and S2 normal heart sound present GI: COMMON NORMALS: Normal to inspection, nondistended, normoactive bowel sounds present, Soft to palpation and non-tender PALPATION: Yes Soft to palpation Extremity: COMMON NORMALS: no joint enlargement and no pedal edema Neuro: COMMON NORMALS: patient oriented x3 and moves all extremities Skin: COMMON NORMALS: no rashes or lesions noted GENERAL SKIN EXAM: no rashes or lesions noted Data : 10/13/20 04:57 10/13/20 04:57 A&P Assessment and plan (1) Atrial fibrillation with rapid ventricular response: Remains in sinus rhythm currently. Undergoing additional optimization of treatment by cardiology with initiation of Betapace, requiring in-hospital monitoring. If continues to do well, tentatively may likely discharge home tomorrow. Additionally assessed with stress testing due to recurrence of chest pain symptoms, recurrent A. fib with RVR. Results were discussed with him by cardiology. Continue Eliquis. Status: Acute (2) Chest pain: So far improved. No obvious signs of coronary ischemia on stress testing. Troponin abnormality suspect is secondary to arrhythmia, however, with recurrent episodes of A. fib with RVR, without obvious trigger. Status: Acute (3) Hypokalemia: Replaced. Magnesium 1.9. Receiving oral supplementation. Status: Acute (4) Leukocytosis: Resolved. No suggestion of active infection. Monitor for any changes in symptoms. He reports dyspnea exertion, however, denies other respiratory symptoms to suggest upper or lower respiratory tract infection. Says he had surgery about 2 weeks ago and at that time was tested for coronavirus was negative. Denies fevers, chills, denies cough, shortness of breath. Chest x-ray is unremarkable. He does state that his urine has been having sweet odor to it. UA unremarkable. Status: Acute Additional A&P Information Recent lumbar spine surgery: Wound appears to have healed well. No erythema surrounding the scar. No opening or drainage. He does report pain after recent fall. No fractures or hardware failure on x-ray. Prediabetes Alk phos elevation: Noted incidentally, 149. Suspect this is related to his recent surgery. Normal GGT. No abdominal pain currently. CT abdomen pelvis unremarkable. Status post cholecystectomy. Attestations Medical Necessity Statement*: Requiring continue admission for optimization of treatment of recurrent episodes of A. fib with RVR despite treatment, episodes which are symptomatic, including chest pain. QTC prolongation. Coding Level of Care Code Acute Preparation Room Worker for [facility] Fwd Diagnoses Atrial fibrillation with rapid ventricular response I48.91 Chest pain R07.9 Hypokalemia E87.6 Leukocytosis D72.829
[2020-10-14] MEDS: mirtazapine 15 mg Tablet 30 MG PO (21:56)
[2020-10-14] MEDS: zolpidem 5 mg Tablet PO (21:59)
--- NOTE | 2020-10-14 23:51 | PC.NURSE ---
PT LISTENING TO XIOMARA ON CELL PHONE.
[2020-10-15 04:00] VITALS: BP 151/85; PULSE 78; RESP 14; TEMP 36.8; O2SAT 96
[2020-10-15 05:23] LABS: Anion Gap 12.4 (5-19); Blood Urea Nitrogen 11 mg/dL (8-23); Calcium 8.9 mg/dL (8.5-10.5); Carbon Dioxide 25 mmol/L (22-29); Chloride 108 mmol/L (98-107); Glomerular Filtration Rate 113.2 mL/min (90-130); Glucose 121 mg/dL (65-115); Osmolality Calculated 295 mOsm/kg (285-295); Potassium 3.4 mmol/L (3.5-5.1); Sodium 142 mmol/L (136-145)
[2020-10-15 06:00] VITALS: PULSE 75
[2020-10-15 07:53] VITALS: BP 124/65; PULSE 69; RESP 20; TEMP 36.7; O2SAT 97
--- NOTE | 2020-10-15 10:00 | ECG_ITS ---
[facility] Test Date: 2020-10-15 Pat Name: Kenneth Barry Department: Room: 112 Gender: Male Collector Of Port: : 1955 Requested By: Jacquelin Lake Order Number: [id number] Reading MD: MONSE DEL TORO Measurements Intervals [place] Rate: 70 P: 199 [place]: 110 QRS: 78 QRSD: 92 T: 56 QT: 437 QTc: 472 Interpretive Statements SINUS RHYTHM WITH SHORT [place] INTERVAL Compared to ECG 10/14/2020 10:46:29 Short [place] interval now present Electronically Signed On 10-15-2020 18:19:40 WAREHOUSE MAN by MONSE DEL TORO [id number]
[2020-10-15] MEDS: pantoprazole DR 40 mg Tablet PO (10:12)
[2020-10-15] MEDS: allopurinol 300 mg Tablet PO (10:12)
[2020-10-15] MEDS: apixaban 5 mg Tablet PO (10:12)
[2020-10-15] MEDS: sotalol 80 mg Tablet PO (10:12)
[2020-10-15] MEDS: magnesium oxide 400 mg tablet PO (10:12)
[2020-10-15] MEDS: potassium chloride ER 20 mEq Tablet PO ×2 (10:12→13:49)
[2020-10-15] MEDS: duloxetine 60 mg Capsule PO (10:13)
--- NOTE | 2020-10-15 10:17 | PC.CHAP ---
Pastoral Care Encounter/Spiritual Assessment Type of Contact [] Declined business relations manager visit [] Patient/Family/Request visit [] Outpatient visit [] Follow-up visit [] Physician referral [] Code/Alert [x] Routine visit [] Staff referral [] Actively dying [] Patient sleeping [] Family support [] [] Out of room [] Palliative care [] [] Receiving care in room [] Pre-surgical visit [] Trauma [] Long length of stay [] ICU visit [] Other: Relational/Emotional Strength [] Patient feels connected with others/family/visitors/staff [] Distress [] Loneliness/isolation [] Abandonment Spirituality of Patient [] Person of Libertad [] Attends Religious of their Libertad [] Believes in Prayer [] Reads Bible or Islam materials [] There are Spiritual issues to be addressed Welt Cutter Interventions [x] Prayer [x] Active listening [x] Non-anxious presence [x] Spiritual/emotional support [] Crisis/trauma care [] Spiritual counseling [] Bereavement support [] Provided bereavement packet [] Provided Bible/devotional materials [] Provided toy/stuffed animal, coloring book to patient or family member [] Provided Communion [] Anointing/[facility] [] Salvation [x] Completed spiritual assessment [] Other: Impact on Illness or Injury [] Angry [] Fearful [] Anxious [] Often cries [] Exhaustion [] Unable to work [] Unable to attend latter-day [] Unable to walk/stand [] Unable to read [] Unable to drive [] Unable to eat/drink [] Unable to sleep [] Unable to be with family [] Patient intubated [] Other: Summary patient resting well. Time spent with patient 10 min
[2020-10-15 10:36] VITALS: BP 130/75; PULSE 72; RESP 22; TEMP 37.1; O2SAT 96
--- NOTE | 2020-10-15 10:42 | DCPLANNER ---
IMM completed with pt on 10/15/20 @ 6303. Copy of rights given to pt.
--- NOTE | 2020-10-15 12:46 | P.PN_ITS ---
Subjective Subjective: Interval history: This patient is doing okay with no significant symptoms. Last night, he had a sharp pain in the left side of the chest lasted for few seconds and then went away by itself. Has not had any recurrence of chest pain. His EKG this morning showed a QTC of 472. It is essentially unchanged from the previous EKG. Medications: Reviewed: Yes Medication Review Details: Current Medications Acetaminophen (Acetaminophen 325 Mg Tablet) 650 mg PO Q6H PRN PRN Reason: Mild/Mod Pain Or Temp >/= 101 Hydrocodone Bitart/Acetaminophen (Hydrocodone-Acetaminophen 5-325 Mg Tablet) 1 tab PO Q4H PRN PRN Reason: pain Allopurinol (Allopurinol 300 Mg Tablet) 300 mg PO DAILY [facility] Last Admin: 10/15/20 10:12 Dose: 300 mg Documented by: Apixaban (Apixaban 5 Mg Tablet) 5 mg PO Q12H [facility] Last Admin: 10/15/20 10:12 Dose: 5 mg Documented by: Cyclobenzaprine HCl (Cyclobenzaprine 10 Mg Tablet) 10 mg PO TID PRN PRN Reason: muscle spasm Duloxetine HCl (Duloxetine 60 Mg Capsule) 60 mg PO DAILY [facility] Last Admin: 10/15/20 10:13 Dose: 60 mg Documented by: Magnesium Oxide (Magnesium Oxide 400 Mg Tablet) 400 mg PO DAILY [facility] Last Admin: 10/15/20 10:12 Dose: 400 mg Documented by: Mirtazapine (Mirtazapine 15 Mg Tablet) 30 mg PO BEDTIME [facility] Last Admin: 10/14/20 21:56 Dose: 30 mg Documented by: Non-Formulary Medication (Lactase) 9,000 unit PO DAILY [facility] Last Admin: 10/15/20 10:13 Dose: Not Given Documented by: Non-Formulary Medication (Triamcinolone Acetonide [Children's Nasacort]) 1 spray INTRANASAL DAILY [facility] Last Admin: 10/15/20 10:14 Dose: Not Given Documented by: Ondansetron HCl (Ondansetron 2 Mg/Ml Sdv 2 Ml) 4 mg IVP Q6H PRN PRN Reason: NAUSEA AND VOMITING Ondansetron HCl (Ondansetron 4 Mg Tablet) 4 mg PO Q8H PRN PRN Reason: Nausea Ondansetron HCl (Ondansetron 2 Mg/Ml Sdv 2 Ml) 4 mg IVP Q2M PRN PRN Reason: NAUSEA Pantoprazole Sodium (Pantoprazole Dr 40 Mg Tablet) 40 mg PO DAILY [facility] Last Admin: 10/15/20 10:12 Dose: 40 mg Documented by: Potassium Chloride (Potassium Chloride Er 20 Meq Tablet) 20 meq PO DAILY [facility] Last Admin: 10/15/20 10:12 Dose: 20 meq Documented by: Sotalol HCl (Sotalol 80 Mg Tablet) 80 mg PO BID@0900,2100 [facility] Last Admin: 10/15/20 10:12 Dose: 80 mg Documented by: Zolpidem Tartrate (Zolpidem 5 Mg Tablet) 5 mg PO BEDTIME PRN PRN Reason: SLEEP Last Admin: 10/14/20 21:59 Dose: 5 mg Documented by: Vitals/I&O/Wt Last Vital Signs Temp 98.7 F 10/15/20 10:36 Pulse 72 10/15/20 10:36 Resp 22 H 10/15/20 10:36 BP 130/75 10/15/20 10:36 Pulse Ox 96 10/15/20 10:36 10/14/20 10/15/20 10/15/20 22:59 06:59 14:59 Intake Total 240 / 1851.667 0 / 1851.667 480 / 480 Output Total 1000 / 2075 Balance -760 / -223.333 0 / -223.333 480 / 480 Physical Exam Narrative: EXAM NARRATIVE: GENERAL: The patient is alert and oriented times three. Not in any acute distress. Somewhat anxious HEENT: No significant pallor, icterus or lymphadenopathy. The pupils are reactant to light. Oral cavity: There are no mucous membrane lesions. NECK: Trachea appears to be central. No masses noted. No JVD or thyromegaly appreciated. No carotid bruit. RESPIRATORY: Chest is symmetrical. No intercostals muscle retraction or any accessory muscle activation. There is no chest wall tenderness. Breath sounds are heard bilaterally. No rales or rhonchi heard. No evidence of any consolidation. BREASTS: Deferred. HEART: The heart sounds are normal no S3-S4. Short systolic murmur the left sternal border. No diastolic murmurs. ABDOMEN: No vessel pulsations or distention. No tenderness. No organomegaly appreciated. No abdominal bruit. Bowel sounds are normally heard. : Deferred. RECTAL: Deferred. LYMPHATIC: No lymphadenopathy noted in the neck or groin. EXTREMITIES: No edema cyanosis. Peripheral pulses are palpable but somewhat weak MUSCULOSKELETAL: No acute joint deformities or swelling SKIN: There are no significant scars or skin rash noted. NEUROPSYCHIATRIC: The patient is alert and oriented x3. Appears to be in a good mood. The higher functions are grossly within normal limits. No tremors or rigidity noted. Data : 10/13/20 04:57 10/15/20 04:38 Other Labs: Laboratory Last Values WBC 9.2 10^3/uL (4.0-10.0) 10/13/20 04:57 RBC 3.96 10^6/uL (4.1-5.3) L 10/13/20 04:57 Hgb 12.1 g/dL (11.7-16.6) 10/13/20 04:57 Hct 36.5 % (42.0-52.0) L 10/13/20 04:57 MCV 92.2 fL (80-94) 10/13/20 04:57 MCH 30.6 pg (28.0-34.0) 10/13/20 04:57 MCHC 33.2 g/dL (30.0-36.0) 10/13/20 04:57 RDW 13.2 % (12.1-15.1) 10/13/20 04:57 Plt Count 248 10^3/cmm (130-400) 10/13/20 04:57 MPV 10.3 fL (7.4-10.4) 10/13/20 04:57 Neut % (Auto) 40.4 % 10/13/20 04:57 Lymph % (Auto) 38.2 % 10/13/20 04:57 [place] % (Auto) 7.9 % 10/13/20 04:57 Eos % (Auto) 12.2 % 10/13/20 04:57 Baso % (Auto) 1.0 % 10/13/20 04:57 Neut # (Auto) 3.73 10^3/uL (1.8-7.7) 10/13/20 04:57 Lymph # (Auto) 3.5 10^3/uL (0.8-4.8) 10/13/20 04:57 [place] # (Auto) 0.7 10^3/uL (0.2-0.9) 10/13/20 04:57 Eos # (Auto) 1.1 10^3/uL (0.0-0.8) H 10/13/20 04:57 Baso # (Auto) 0.1 10^3/uL (0.0-0.1) 10/13/20 04:57 Nucleated RBC % (auto) 0 % 10/13/20 04:57 Nucleated RBCs # 0.0 /100WBC 10/13/20 04:57 Sodium 142 mmol/L (136-145) 10/15/20 04:38 Potassium 3.4 mmol/L (3.5-5.1) L 10/15/20 04:38 Chloride 108 mmol/L (98-107) H 10/15/20 04:38 Carbon Dioxide 25 mmol/L (22-29) 10/15/20 04:38 Anion Gap 12.4 (5-19) 10/15/20 04:38 BUN 11 mg/dL (8-23) 10/15/20 04:38 Creatinine 0.7 mg/dL (0.7-1.2) 10/15/20 04:38 GFR Calculation 113.2 mL/min (90-130) 10/15/20 04:38 Glucose 121 mg/dL (65-115) H 10/15/20 04:38 Calculated Osmolality 295 mOsm/kg (285-295) 10/15/20 04:38 Calcium 8.9 mg/dL (8.5-10.5) 10/15/20 04:38 Magnesium 1.9 mg/dL (1.7-2.3) 10/12/20 19:20 Total Bilirubin 0.3 mg/dL (0.15-1.2) 10/13/20 04:57 GGT 25 U/L (8-61) 10/13/20 04:57 AST 12 U/L (0-40) 10/13/20 04:57 ALT 11 U/L (0-41) 10/13/20 04:57 Alkaline Phosphatase 114 IU/L (40-130) 10/13/20 04:57 Troponin T Baseline 28 ng/L (0-15) H 10/12/20 14:10 Troponin T 120 Minute 24.17 ng/L (0-15) H 10/12/20 19:20 Delta Troponin T -3.83 ABS# (0-10) L 10/12/20 19:20 Troponin T Hi Sens 6Hr 23.58 ng/L (0-15) H 10/12/20 21:53 Troponin T Hi Sens 6Hr Delta -4.42 ng/L (0-12) L 10/12/20 21:53 Total Protein 6.3 g/dL (6.6-8.7) L 10/13/20 04:57 Albumin 3.7 g/dL (3.5-5.2) 10/13/20 04:57 Globulin 2.6 g/dL (1.3-4.6) 10/13/20 04:57 Urine Color Yellow (Yellow) 10/12/20 18:12 Urine Appearance Clear (CLEAR) 10/12/20 18:12 Urine pH 7 (5-7) 10/12/20 18:12 Ur Specific [place] 1.015 (1.005-1.030) 10/12/20 18:12 Urine Protein Neg (Negative) 10/12/20 18:12 Urine Glucose (UA) Norm (Normal) 10/12/20 18:12 Urine Ketones Negative (Negative) 10/12/20 18:12 Urine Blood Neg (Negative) 10/12/20 18:12 Urine Nitrate Negative (Negative) 10/12/20 18:12 Urine Bilirubin Neg (Negative) 10/12/20 18:12 Urine Urobilinogen Norm mg/dL (Negative) 10/12/20 18:12 Ur Leukocyte Esterase Negative (Negative) 10/12/20 18:12 A&P Assessment and plan (1) Atrial fibrillation with rapid ventricular response: Patient seems to be tolerating the Betapace so far well. The QTC was 470. He seems to be staying in the sinus rhythm. May continue on the current medications. If the patient continues remain stable, may be discharged home from a cardiac standpoint. He may be kept on the Betapace and Eliquis. Status: Acute (2) Hypokalemia: Patient was given additional potassium yesterday. We will check his BMP Status: Acute (3) Atypical chest pain: The myocardial perfusion imaging results are discussed with the patient. The tests show some inconsistent reversible defect, most likely artifactual. Since the patient has no significant symptoms, he may not require any further investigations at this point. May continue on the current medications. Status: Acute (4) Generalized anxiety disorder: May continue on the current treatment measures. Status: Acute (5) Hypertension: Currently the blood pressure is under control. We will continue on the current medications. He may stay off the amlodipine Status: Acute Qualifiers: Hypertension type: essential hypertension Qualified Code(s): I10 - Essential (primary) hypertension (6) Posttraumatic stress disorder: Continue on the current treatment measures. Management as per the primary Status: Acute Additional A&P Information The problems are Mild hypokalemia , need to be corrected History of a gouty arthritis Chronic pains GERD -stable Patient may be given potassium 20 mEq p.o. now. If he continues to remain stable, may be discharged home today. He needs to be seen back in the office in 2 weeks to be seen by the nurse practitioner. He will have an EKG at that time. I may see him back in the office in 6 weeks Attestations Medical Necessity Statement*: Disposition as per the primary Coding Level of Care Code Acute Diamond Cutter for g Fwd Diagnoses Atrial fibrillation with rapid ventricular response I48.91 Hypokalemia E87.6 Atypical chest pain R07.89 Generalized anxiety disorder F41.1 Hypertension I10 Hypertension type: essential hypertension Posttraumatic stress disorder F43.10
--- NOTE | 2020-10-15 15:06 | P.DS_ITS ---
Discharge Providers Date of Admission: 10/12/20 18:27 Date of Discharge: October 15, 2020 Attending Provider at Admission: Fish Beaulieu Attending Provider at Discharge: Fish Beaulieu Primary Care Provider: Chau Holloway DO Diagnoses at Discharge Discharge Diagnosis (1) Atrial fibrillation with rapid ventricular response: Status: Acute (2) Hypokalemia: Status: Acute (3) Atypical chest pain: Status: Acute Permanent problem details: Patient had a cardiac catheterization 2014 which revealed no significant stenotic lesion. (4) Generalized anxiety disorder: Status: Acute (5) Hypertension: Status: Acute Qualifiers: Hypertension type: essential hypertension Qualified Code(s): I10 - Essential (primary) hypertension (6) Posttraumatic stress disorder: Status: Acute Reason for Visit Reason for Visit: Weakness, N/V, AFIB related issues Hospital Course Hospital Course Pleasant 65-year-old gentleman with history of atrial fibrillation, was admitted for assessment management of A. fib with RVR, with episodes of chest pain. On presentation also noted surgery of L-spine 2 weeks earlier at [facility], with recent fall, subsequently back pain. He was treated with Cardizem drip, subsequently transitioned to metoprolol, however, with noted bradycardia after conversion, heart rates 50s-60s, with not much room to go up on metoprolol, and with recurrent episodes without obvious trigger, with normal thyroid function, with only minimal hypokalemia, without particularly concerning stress test which was performed during this admission as well, he was assessed by cardiology, and transitioned instead to sotalol, with optimization of heart rhythm, and monitoring after initiation. His chest pain episodes improved. He did well with the medication, and remains in sinus rhythm. His potassium has been replaced, and will continue with replacement after discharge. Please reassess at the next visit.. His L-spine scar after recent surgery appears to be healing well. Spine was imaged with x-ray without finding of hardware failure. Back pain has not been bothering him. He has been bothered by shoulder issues recently which has been a chronic problem for which he has been following up with orthopedics and is encouraged to continue to follow. He also seeks to additionally discuss at next appointment regarding difficulties with sleep, and stress management strategies in case these may be contributing to his episodes of A. fib with RVR. Please note incidentally noted alkaline phosphatase elevation in the hospital, 149. GGT was found normal. Perhaps related to his recent surgery, but please follow-up, and assess additionally in case not resolving. Continue optimization of hypertension, prediabetes and other chronic conditions. Physical Exam Const: COMMON NORMALS: no acute distress and patient oriented x3 HENMT: COMMON NORMALS: oropharynx normal Neck/C-Spine: COMMON NORMALS: no JVD Resp: COMMON NORMALS: normal respiratory effort and clear to auscultation bilaterally AUSCULTATION: clear to auscultation bilaterally Cardio: COMMON NORMALS: no JVD, regular rhythm, S1 normal heart sound present, S2 normal heart sound present and No murmurs present (Cardio) RHYTHM: regular rhythm HEART SOUNDS: S1 normal heart sound present and S2 normal heart sound present GI: COMMON NORMALS: Normal to inspection, nondistended, normoactive bowel sounds present, Soft to palpation and non-tender PALPATION: Yes Soft to palpation Extremity: COMMON NORMALS: no joint enlargement and no pedal edema Neuro: COMMON NORMALS: patient oriented x3 and moves all extremities Skin: COMMON NORMALS: no rashes or lesions noted GENERAL SKIN EXAM: no rashes or lesions noted Discharge Data Data Completed and Pending: Completed Studies During Hospitalization Category Date Time Status CT abdomen pelvis w con* [id number] Stat Cat Scan 10/12/20 13:52 [address] MIBI [Sestamibi Stress Test Reque st Exams 10/14/20 07:07 Completed ] Routine XR chest 1V rochelle ble [id number] Stat Exams 10/12/20 13:47 Completed XR lumbar spine 2 -3V* [id number] Routine Exams 10/12/20 18:11 Completed NM jenni perf SPECT r/s* [id number] Routin e Nuc Med 10/14/20 07:08 Completed CV echo complete* [id number] Routine Ultrasound 10/13/20 08:00 Completed Labs from last 24 hours 10/15/20 04:38 Sodium 142 Potassium 3.4 L Chloride 108 H Carbon Dioxide 25 Anion Gap 12.4 BUN 11 Creatinine 0.7 GFR Calculation 113.2 Glucose 121 H Calculated Osmolal ity 295 Calcium 8.9 Vitals: Last Vital Signs Temp 98.7 F 10/15/20 10:36 Pulse 72 10/15/20 10:36 Resp 22 H 10/15/20 10:36 BP 130/75 10/15/20 10:36 Pulse Ox 96 10/15/20 10:36 Discharge Plan Discharge Patient Disposition: Home Condition: Stable Prescriptions: New sotalol 80 mg Tablet 80 mg PO BID@0900,2100 Qty: 60 RF: 0 Continued cyclobenzaprine 10 mg tablet 10 mg PO TID PRN (Reason: muscle spasm) RF: 0 magnesium oxide 400 mg magnesium capsule 400 mg PO DAILY RF: 0 pantoprazole 40 mg tablet,delayed release (DR/EC) 40 mg PO DAILY RF: 0 lactase 9,000 unit tablet 9,000 unit PO DAILY RF: 0 allopurinol 300 mg tablet 300 mg PO DAILY RF: 0 potassium chloride [Klor-Con] 20 mEq packet 20 meq PO DAILY RF: 0 cetirizine [Zyrtec] 10 mg tablet 10 mg PO DAILY PRN (Reason: allergy symptoms) RF: 0 diphenhydramine HCl [Allergy (diphenhydramine)] 25 mg tablet 25 mg PO BID PRN (Reason: itching) RF: 0 triamcinolone acetonide [Children's Nasacort] 55 mcg aerosol,spray 1 spray INTRANASAL DAILY RF: 0 acyclovir [Zovirax] 5 % cream 1 applic TOPICAL DAILY PRN (Reason: Itching) RF: 0 Eliquis 5 mg tablet 5 mg PO BID Qty: 180 RF: 3 duloxetine 60 mg capsule,delayed release(DR/EC) 60 mg PO DAILY Qty: 30 RF: 2 mirtazapine 15 mg tablet 30 mg PO BEDTIME RF: 0 hydrocodone-acetaminophen [Caputa] 5-325 mg tablet 1 tab PO Q4H PRN (Reason: pain) Qty: 20 RF: 0 ondansetron 4 mg tablet,disintegrating 4 mg PO Q8H PRN (Reason: Nausea) RF: 0 Discontinued amlodipine 10 mg tablet 10 mg PO DAILY RF: 0 Hold Instructions: Resume on 10/07/20. take 1/2 pill daily (5mg) metoprolol tartrate 50 mg tablet 50 mg PO BID Qty: 60 RF: 0 No Action (DME) ASO ankle brace Qty: 1 RF: 0 (DME) Custom Orthotics See Rx Instructions .Route .MEDSUPPLY Qty: 1 RF: 0 Discharge Orders: Discharge Order (Routine); Ordered 10/15/20 Ordered By: Fish Oates: Jacquelin Lake MD [Physician] - 1 month Chau Holloway DO [Primary Care Provider] - 4-7 days Sarah Caldwell FNP [Nurse Practitioner] - 1 week Discharge Diet: Cardiac and Diabetic Discharge Activity: Increase activity as tolerated Patient Instructions: Sotalol (By mouth), Apixaban (By mouth), Atrial Fibrillation (GEN), Stress (GEN), Insomnia (GEN) Activity Restrictions/Additional Instructions: Please monitor your heart rate, blood pressures at home. Record values to bring to your appointment. Continue follow-up with cardiology regarding atrial fibrillation. Please also discuss with your primary care doctor regarding difficulties with sleep. Continue pursuit in strategies to manage stress. Work with your primary doctor for additional help. Have your primary care doctor recheck potassium at the next visit. Continue supplementation. Continue follow-up with orthopedic surgery regarding shoulder issues. Please discuss with your primary care doctor regarding incidentally found elevated alkaline phosphatase, with mild elevation. This may be related to your recent spine surgery. Have your primary care doctor follow-up level and ensure resolution, or consider additional assessment to exclude more concerning causes. Discharge Attestations Time Spent in Discharge Care*: greater than 30 min Quality Metrics Clinical Quality Measures During this hospital stay, did patient experience: None Coding Level of Care Code Acute Tieing Machine Operator for Leonila Aparicio Diagnoses Atrial fibrillation with rapid ventricular response I48.91 Hypokalemia E87.6 Atypical chest pain R07.89 Generalized anxiety disorder F41.1 Hypertension I10 Hypertension type: essential hypertension Posttraumatic stress disorder F43.10
[2020-10-15 15:14] VITALS: BP 136/84; PULSE 70; RESP 18; TEMP 36.7; O2SAT 95
[2020-10-15 16:18] VITALS: BP 136/84; PULSE 70; RESP 18; TEMP 36.7; O2SAT 95
--- NOTE | 2020-10-15 16:41 | PC.NURSE ---
discharge instructions given and explained.pt verb understanding of instructions.[facility]discharged via w/c to exit.he will drive himself home.
== END 2020-10-15 16:41 | disposition home or self-care (01) | DRG 310 ==
LOC: ER 18:21 → CSU 18:29
PROVIDERS: Admitting Provider Internal Medicine; Emergency Provider Family Medicine; PCP Emergency Medicine Emergency Medical Services; Visit Provider Internal Medicine
DX: I48.91 Unspecified atrial fibrillation (principal); E87.6 Hypokalemia; F41.1 Generalized anxiety disorder; F32.9 Major depressive disorder, single episode, unspecified; E11.9 Type 2 diabetes mellitus without complications; M48.02 Spinal stenosis, cervical region; I10 Essential (primary) hypertension; M25.512 Pain in left shoulder; M25.511 Pain in right shoulder; Z98.1 Arthrodesis status; Z87.891 Personal history of nicotine dependence; G89.29 Other chronic pain; M10.9 Gout, unspecified; K21.9 Gastro-esophageal reflux disease without esophagitis; F43.10 Post-traumatic stress disorder, unspecified; Z79.01 Long term (current) use of anticoagulants; Z79.891 Long term (current) use of opiate analgesic
CPT/HCPCS: 36415; 71045; 72100; 74177; 78452; 80048; 80053; 81003; 82977; 83735; 84484; 85025; 93005; 93017; 93306; 96374; 99291; A9500; J2405; J2785; J3490; J7030; J7040; Q9967

== ENCOUNTER → 2020-10-19 13:18 | Outpatient (BNVA) | payer OTHER, SELFPAY | PROVIDERS: PCP Emergency Medicine Emergency Medical Services; Visit Provider Specialist | DX: M75.121 Complete rotator cuff tear or rupture of right shoulder, not specified as traumatic (principal); M19.011 Primary osteoarthritis, right shoulder | CPT/HCPCS: 73030 ==

== ENCOUNTER → 2020-11-17 15:44 | Outpatient (BNVA) | payer OTHER, MEDICARE, SELFPAY | PROVIDERS: PCP Emergency Medicine Emergency Medical Services; Visit Provider Internal Medicine Cardiovascular Disease | DX: E87.6 Hypokalemia (principal); R06.02 Shortness of breath | CPT/HCPCS: 80048 ==

== ENCOUNTER → 2020-11-30 13:36 | Outpatient (BNVA) | payer MEDICARE, OTHER, SELFPAY | PROVIDERS: PCP Emergency Medicine Emergency Medical Services; Visit Provider Internal Medicine Cardiovascular Disease | DX: R07.89 Other chest pain (principal); I48.91 Unspecified atrial fibrillation; E87.6 Hypokalemia; R07.9 Chest pain, unspecified; R60.9 Edema, unspecified; I10 Essential (primary) hypertension; Z79.899 Other long term (current) drug therapy | CPT/HCPCS: 80048; 83880 ==

== ENCOUNTER 2020-12-01 14:36 | Outpatient (CLI) | payer OTHER, SELFPAY ==
--- NOTE | 2020-12-01 15:15 | MR_ITS ---
WS: [id number] MRI RIGHT SHOULDER HISTORY: M75.121 - Complete rotator cuff tear or rupture of right shoulder, not specified as traumati c COMPARISON: 06/29/2020 TECHNIQUE: Multiplanar sequences of the shoulder joint are submitted. Moderate AC joint hypertrophy with encroachment upon the supraspinatus tendon and muscle. Similar to the prior study studies. Micrometallic artifacts surrounding the humeral head from prior surgery. The re is a large amount of fluid in the subacromial and subdeltoid bursa. Biceps tendon remains at the b icipital groove but there is a large amount of fluid along the biceps tendon sheath with a few small loose bodies in the tendon sheath fluid. No os acromion. There is a large full-thickness tear involving the supraspinatus tendon. Tendon is retracted just sup erior to the humeral head. Full-thickness complete tear supraspinatus. Tendinopathy in the distal inf raspinatus tendon but no definite tear is identified. Thickening and increased T2 signal in the dista l subscapularis tendon. No tear is identified. Teres minor is negative. At least one anchor is noted in the humeral head. Loss of the cartilage over the posterior lateral humeral head. Moderate atrophy of the supraspinatus muscle. Mild atrophy of the infraspinatus and subscapularis mus cles. Degenerative fraying of the labrum. Abnormal irregular signal in the superior labrum consistent with tear. MR/MR shoulder RT wo con* [id number] IMPRESSION: 1. Complete full-thickness tear supraspinatus tendon with retraction to the hu meral head has progressed since 06/29/2020. Consistent with a re-tear. Numerous micrometallic artifacts from prior surgery along with a single anchor. 2. Significant thinning and atrophy of the distal remaining supraspinatus tend on. 3. Moderate tendinopathy distal subscapularis tendon. No tear identified. 4. AC joint hypertrophy with mild encroachment upon the humeral head. 5. Biceps tendinopathy. 6. Superior labral tear.
== END 2020-12-01 14:37 | disposition home or self-care (01) ==
LOC: RADWPI 14:39
PROVIDERS: PCP Emergency Medicine Emergency Medical Services; Visit Provider Specialist
DX: M75.121 Complete rotator cuff tear or rupture of right shoulder, not specified as traumatic (principal); S43.431A Superior glenoid labrum lesion of right shoulder, initial encounter; X58.XXXA Exposure to other specified factors, initial encounter
CPT/HCPCS: 73221

== ENCOUNTER → 2020-12-16 11:29 | Outpatient (BNVA) | payer OTHER, SELFPAY | PROVIDERS: PCP Emergency Medicine Emergency Medical Services; Visit Provider Internal Medicine Cardiovascular Disease | DX: R07.89 Other chest pain (principal); R07.9 Chest pain, unspecified; I48.91 Unspecified atrial fibrillation; E87.6 Hypokalemia; R60.9 Edema, unspecified | CPT/HCPCS: 80048; 83880 ==

== ENCOUNTER → 2021-01-07 12:35 | Day surgery (SDC) | payer OTHER, SELFPAY | PROVIDERS: PCP Emergency Medicine Emergency Medical Services; Visit Provider Specialist | DX: Z01.818 Encounter for other preprocedural examination (principal) | CPT/HCPCS: 93005 ==

== ENCOUNTER → 2021-01-14 13:30 | Outpatient (BNVA) | payer OTHER, SELFPAY | PROVIDERS: PCP Emergency Medicine Emergency Medical Services; Visit Provider Specialist | DX: Z01.812 Encounter for preprocedural laboratory examination (principal); Z20.822 Contact with and (suspected) exposure to COVID-19 | CPT/HCPCS: 87635 ==

== ENCOUNTER 2021-01-15 13:14 | Emergency (ER) | payer OTHER, SELFPAY ==
[2021-01-15 13:22] VITALS: BP 137/80; PULSE 64; RESP 18; TEMP 36.8; O2SAT 100; BMI 25.4
--- NOTE | 2021-01-15 13:59 | ED_ITS ---
HPI - Extremity Problem General: Chief complaint: Extremity Injury, Lower Stated complaint: L HIP INJURY LAST NIGHT/PAIN, DIFF WALKING Time Seen by Provider: 01/15/21 13:53 History of Present Illness: HPI Narrative: Patient was moving a portable air conditioning last night and he was in his house shoes and he caught his foot on something and felt a strain to his hip when he twisted. He is able ambulate without difficulty does have pain in the left hip muscle. Complaint: extremity pain Onset (ago): hour(s) Pain Consistency: constant Location: left and lower extremity Severity scale (1-10): 2 Quality: aching Radiation: none Relieving factors: immobilization Exacerbating factors: range of motion Associated symptoms: Reports no associated symptoms; Deny chest pain, fever(s) or rash Review of Systems Const: Denies: fever(s), chills or body aches Eyes: Denies: change in vision or blurry vision ENMT: Denies: throat pain (On antibiotics for sore throat) or nasal congestion Card: Denies: chest pain or dyspnea on exertion Resp: Denies: dyspnea, productive cough or non-productive cough GI: Denies: abdominal pain, nausea or vomiting : Denies: difficulty urinating Musc: Reports: extremity pain (Left hip hurts with range of motion, able to ambulate get up out of chair w); Denies: limited range of motion or muscle weakness Skin/Breast: Denies: rash Neuro: Denies: headache(s) Psych: Denies: anxiety or depression Rajiv/Lymph: Denies: easy bruising PFSH ED PFSH: Medical History Anxiety Back pain Depressive disorder Diabetes Edema, peripheral Foraminal stenosis of cervical region Hypertension Neck pain New onset atrial fibrillation Shoulder pain, bilateral Surgical History Fusion of lumbar spine H/O shoulder surgery History of penile implant Hx of cholecystectomy Status post cervical spinal fusion 07/18/2019 C3-C4 ACDFF Family History Other Cancer Paroxysmal A-fib Stroke Social History Smoking and tobacco status: former smoker Alcohol intake: never Lives independently: Yes Household members: none Marital status: Current occupational status: retired and disabled History of recent travel: No Physical Exam Const: COMMON NORMALS: no acute distress Extremity: OTHER: Left hip joint intact is able lift the leg without difficulty while sitting was able stand up without difficulty has pain through the left hip muscular on the outer aspect with palpation no swelling bruising redness noted able stand without difficulty. Psych: COMMON NORMALS: mental status grossly normal Course Vital Signs: Vital signs: Vital Signs Temperature 98.3 F 01/15/21 13:22 Pulse Rate 64 01/15/21 13:22 Respiratory Rate 18 01/15/21 13:22 Blood Pressure 137/80 01/15/21 13:22 Pulse Oximetry 100 01/15/21 13:22 MDM - Extremity (Nontraumatic) MDM Narrative: Medical decision making narrative: Patient appears to strain muscle in the left hip. Possibly could be sciatica to based on his injury report. Patient did not appear in any acute distress had good range of motion of the hip able set up stand up and move the hip from sitting position without difficulty. Discharge Plan Discharge Patient Disposition: Home Clinical Impression: Muscle strain of left hip Qualifiers: Encounter type: initial encounter Qualified Code(s): S76.012A - Strain of muscle, fascia and tendon of left hip, initial encounter Condition: Stable Prescriptions: New prednisone 20 mg tablet 20 mg PO DAILY Qty: 7 RF: 0 Voltaren 1 % gel 4 g topical QID Qty: 100 RF: 0 No Action (DME) ASO ankle brace Qty: 1 RF: 0 (DME) Custom Orthotics See Rx Instructions .Route .MEDSUPPLY Qty: 1 RF: 0 cyclobenzaprine 10 mg tablet 10 mg PO TID PRN (Reason: muscle spasm) RF: 0 magnesium oxide 400 mg magnesium capsule 400 mg PO DAILY RF: 0 pantoprazole 40 mg tablet,delayed release (DR/EC) 40 mg PO DAILY RF: 0 lactase 9,000 unit tablet 9,000 unit PO DAILY RF: 0 cetirizine [Zyrtec] 10 mg tablet 10 mg PO DAILY PRN (Reason: allergy symptoms) RF: 0 diphenhydramine HCl [Allergy (diphenhydramine)] 25 mg tablet 25 mg PO BID PRN (Reason: itching) RF: 0 triamcinolone acetonide [Children's Nasacort] 55 mcg aerosol,spray 1 spray INTRANASAL DAILY RF: 0 acyclovir [Zovirax] 5 % cream 1 applic TOPICAL DAILY PRN (Reason: Itching) RF: 0 duloxetine 60 mg capsule,delayed release(DR/EC) 60 mg PO DAILY Qty: 30 RF: 2 spironolactone 25 mg tablet 25 mg PO DAILY Qty: 90 RF: 3 amlodipine 5 mg tablet 5 mg PO DAILY Qty: 90 RF: 3 torsemide 20 mg tablet 20 mg PO DAILY Qty: 90 RF: 3 sotalol 80 mg tablet 80 mg PO DIRECTED Qty: 180 RF: 2 potassium chloride 20 mEq tablet extended release 20 meq PO DAILY Qty: 90 RF: 1 Eliquis 5 mg tablet 5 mg PO BID Qty: 180 RF: 3 mirtazapine 15 mg tablet 30 mg PO BEDTIME RF: 0 hydrocodone-acetaminophen [[place]] 5-325 mg tablet 1 tab PO Q4H PRN (Reason: pain) Qty: 20 RF: 0 ondansetron 4 mg tablet,disintegrating 4 mg PO Q8H PRN (Reason: Nausea) RF: 0 Discharge Orders: Discharge ED (Routine); Ordered 01/15/21 Ordered By: Jayme Brock Referrals: Chau Holloway, [Primary Care Provider] - Discharge Diet: Usual diet Discharge Activity: Increase activity as tolerated Patient Instructions: Muscle Strain (ED) Activity Restrictions/Additional Instructions: Follow-up with medical provider as directed. Take medications as prescribed. Return to the ER or your medical provider if condition worsens. Please read and understand discharge instructions. If any questions ask please. Coding Level of Care Code ED Staff Interpreter for Leonila Aparicio
== END 2021-01-15 14:25 | disposition home or self-care (01) ==
PROVIDERS: Emergency Provider Nurse Practitioner Family; PCP Emergency Medicine Emergency Medical Services
DX: S76.012A Strain of muscle, fascia and tendon of left hip, initial encounter (principal); Z79.01 Long term (current) use of anticoagulants; E11.9 Type 2 diabetes mellitus without complications; I10 Essential (primary) hypertension; I48.91 Unspecified atrial fibrillation; Z87.891 Personal history of nicotine dependence; X50.1XXA Overexertion from prolonged static or awkward postures, initial encounter
CPT/HCPCS: 99282

== ENCOUNTER 2021-01-19 11:17 | Day surgery (SDC) | payer OTHER, SELFPAY ==
[2021-01-07 14:10] VITALS: BMI 25.7
--- NOTE | 2021-01-07 14:29 | ECG_ITS ---
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 Measurements Intervals [place] Rate: 60 P: 35 NC: 177 QRS: 74 QRSD: 100 T: 78 QT: 428 QTc: 429 Interpretive Statements SINUS RHYTHM NONSPECIFIC T-WAVE ABNORMALITY Compared to ECG 10/15/2020 10:31:24 T-wave abnormality now present Short NC interval no longer present Electronically Signed On 01-07-2021 19:32:15 CDT by Florentino Fung M.D. [email or web address]
[2021-01-07 14:44] LABS: Basophils # 0.1 10^3/uL (0.0-0.1); Basophils % 0.4 %; Eosinophils # 0.1 10^3/uL (0.0-0.8); Hematocrit 42.9 % (42.0-52.0); Hemoglobin 14.2 g/dL (11.7-16.6); Lymphocytes # 2.1 10^3/uL (0.8-4.8); Lymphocytes % 15.8 %; Mean Corpuscular HGB Conc 33.1 g/dL (30.0-36.0); Mean Corpuscular Hemoglobin 28.5 pg (28.0-34.0); Mean Corpuscular Volume 86.1 fL (80-94); Mean Platelet Volume 9.8 fL (7.4-10.4); Monocytes # 1.2 10^3/uL (0.2-0.9); Monocytes % 8.6 %; Neutrophils # 10.01 10^3/uL (1.8-7.7); Neutrophils % 73.8 %; Nucleated Red Blood Cells % 0 %; Platelet Count 281 10^3/cmm (130-400); Red Blood Count 4.98 10^6/uL (4.1-5.3); Red Cell Distribution Width 13.8 % (12.1-15.1); White Blood Count 13.6 10^3/uL (4.0-10.0)
--- NOTE | 2021-01-07 14:48 | P.ANESASSM_ITS ---
Documented by User: Brigid Delcid CRNA 01/07/21 15:13 Pre-Anesthetic Assessment Pre-Anesthetic Assessment: Height/Weight: Height 1.83 m Weight 86.183 kg Preop Diagnosis: Right rotator cuff arthropathy with severe DJD Proposed Procedure: Operation Date: 01/19/21 07:00 Proposed Procedures p RIGHT REVERSE TOTAL SHOULDER ARTHROPLASTY 84558 M19.019(Right) - Karley Sauceda MD Familial anesthetic complications: no issues reported. Social: Social History: Alcohol ( drinks on the weekends history of alcoholism) and Tobacco (Cannabis Daily) Exam: Pre-Anes Outpt Exam: alert, oriented x 3, clear to auscultation bilaterally and regular rate & rhythm Additional Exam Findings (including area of procedure): EKG shows NSR rate of 60. Airway: Submandibular: WNL Cervical ROM: WNL MP: 2 Dentition: Chipped Additional comments: poor dentition Pulmonary: Pulmonary: None reported CV/HEM: CV/HEM: Afib (History of Afib currently NSR.), Angina (Unstable) (no precipitating event.), CHF and HTN Comments: stress test 09/2020 echocardiogram 09/2020 patient has a history of afib. He is currently NSR states he was instructed to take Eliquis however he never started it. : : None reported Hepatic: Hepatic: Hepatitis Comments: History of Hepatitis C patient states he received treatment in remission since 2001 GI: GI: GERD Comments: controlled. Metabolic: Metabolic: DM Comments: diabetes listed in chart, patient denies knowledge or treatment of diabetes. Musc/skel: Musc/skel: Lower Back Pain, OA/DJD and Weakness (bilateral leg weakness related to back issues (previous surgery)) Neuropsych: Neuropsych: Anxiety, Depression, VELA (daily) and Neuropathy (left leg.) Comments: PTSD Anesthetic Plan: ASA status: 3 Anesthesia: General Risk of > 500 ml blood loss (7ml/kg in children): No PFSH Anesthesia PFSH: Medical History Anxiety Back pain Depressive disorder Diabetes Edema, peripheral Foraminal stenosis of cervical region Hypertension Neck pain New onset atrial fibrillation Shoulder pain, bilateral Surgical History Fusion of lumbar spine H/O shoulder surgery History of penile implant Hx of cholecystectomy Status post cervical spinal fusion 07/18/2019 C3-C4 ACDFF Family History Other Cancer Paroxysmal A-fib Stroke Social History Smoking and tobacco status: former smoker Alcohol intake: never Lives independently: Yes Household members: none Marital status: Current occupational status: retired and disabled History of recent travel: No Data Anesthesia CBC & Chem 7: 01/07/21 14:25 01/07/21 14:25 Other Labs: Laboratory Results - last 48 hr 01/07/21 14:25 WBC 13.6 H RBC 4.98 Hgb 14.2 Hct 42.9 MCV 86.1 MCH 28.5 MCHC 33.1 RDW 13.8 Plt Count 281 MPV 9.8 Neut % (Auto) 73.8 Lymph % (Auto) 15.8 [place] % (Auto) 8.6 Eos % (Auto) 1.0 Baso % (Auto) 0.4 Neut # (Auto) 10.01 H Lymph # (Auto) 2.1 [place] # (Auto) 1.2 H Eos # (Auto) 0.1 Baso # (Auto) 0.1 Nucleated RBC % (auto) 0 Nucleated RBCs # 0.0 Cardiac Studies: No Data to Display Documented by User: Dede Brenner 01/07/21 15:43 Pre-Anesthetic Assessment Other Pertinent Information: Patient unfortunately left office before we were able to discuss everything with him.I spoked w/ Dr. Lake regarding the patient being noncompliant w/ Eliquis (he never started it, despite being discharged on it in [facility]). Dr. Lake's recommendations are to start eliquis jose and stop 3 days before surgery. I called a left a voicemail message with his information at [phone] [facility] Anesthesia [facility]: Medical History Anxiety Back pain Depressive disorder Diabetes Edema, peripheral Foraminal stenosis of cervical region Hypertension Neck pain New onset atrial fibrillation Shoulder pain, bilateral Surgical History Fusion of lumbar spine H/O shoulder surgery History of penile implant Hx of cholecystectomy Status post cervical spinal fusion 07/18/2019 C3-C4 ACDFF Family History Other Cancer Paroxysmal A-fib Stroke Social History Smoking and tobacco status: former smoker Alcohol intake: never Lives independently: Yes Household members: none Marital status: Current occupational status: retired and disabled History of recent travel: No Data Anesthesia CBC & Chem 7: 01/07/21 14:25 01/07/21 14:25 Cardiac Studies: No Data to Display
[2021-01-07 15:18] LABS: Alanine Aminotransferase 12 U/L (0-41); Albumin Level 4.5 g/dL (3.5-5.2); Alkaline Phosphatase 101 IU/L (40-130); Anion Gap 15.3 (5-19); Aspartate Amino Transferase 16 U/L (0-40); Blood Urea Nitrogen 22 mg/dL (8-23); Calcium 9.5 mg/dL (8.5-10.5); Carbon Dioxide 29 mmol/L (22-29); Chloride 96 mmol/L (98-107); Globulin 3.5 g/dL (1.3-4.6); Glomerular Filtration Rate 50.9 mL/min (90-130); Glucose 131 mg/dL (65-115); Osmolality Calculated 289 mOsm/kg (285-295); Potassium 3.3 mmol/L (3.5-5.1); Sodium 137 mmol/L (136-145); Total Bilirubin 0.3 mg/dL (0.15-1.2)
[2021-01-07 15:21] LABS: Add Urine Microscopic? YES; Bilirubin Urine 1+ (Negative); Blood Urine Neg (Negative); Glucose Urine UA Norm (Normal); Ketones Urine 1+ (Negative); Leukocyte Esterase Urine Negative (Negative); Nitrate Urine Negative (Negative); Protein Urine 1+ (Negative); Urine Appearance SL Hazy (CLEAR); Urine Color Yellow (Yellow); Urobilinogen Urine Norm (Negative); pH Urine 5 (5-7)
[2021-01-07 15:22] LABS: Add Urine Culture? No; Bacteria Urine 1+ /hpf
[2021-01-19] VITALS (7 sets, daily range): BP systolic 111–123; BP diastolic 69–86; PULSE 58–100; RESP 14–18; TEMP 36.1–36.6; O2SAT 97–99
--- NOTE | 2021-01-19 11:25 | ECG_ITS ---
[facility] Test Date: 2021-01-19 Pat Name: Kenneth Barry Department: Room: Gender: Male Area Supervisor: : 1955 Requested By: Karley Sauceda Order Number: [id number] Maira MD: Florentino Fung M.D. Measurements Intervals [place] Rate: 95 P: MI: QRS: 71 QRSD: 88 T: 43 QT: 391 QTc: 493 Interpretive Statements ATRIAL FIBRILLATION Compared to ECG 01/07/2021 14:36:36 Sinus rhythm no longer present T-wave abnormality no longer present Electronically Signed On 01-20-2021 17:42:02 CDT by Florentino Fung M.D. [id number]
[2021-01-19] MEDS: CELEcoxib 200 mg Capsule 400 MG PO (12:14)
[2021-01-19] MEDS: acetaminophen 1,000 MG/100 ML PIGGYBACK 400 MG IV (12:14)
[2021-01-19] MEDS: sodium chloride 0.9% 1,000 ML 30 ML IV (12:14)
--- NOTE | 2021-01-19 12:24 | SUR.PREOP ---
11:30 patient appears to be in afib. Ekg obtained to confirm afib rhythm. Dr. Villalobos notified. Plans are to go forward with procedure.
--- NOTE | 2021-01-19 13:50 | W.PM.OPSUD ---
Surgery/Procedure H&P Update DATE OF PROCEDURE: January 19, 2021 DATE H&P PERFORMED: 01/11/21 H&P UPDATE INFORMATION: I have reviewed H&P completed within last 30 days, I have examined patient prior to procedure, No changes to prior documentation and H&P is in [facility] EMR on date indicated PREOP DIAGNOSIS: Right rotator cuff arthropathy with severe DJD PLANNED PROCEDURE: Operation Date: 01/19/21 13:30 Proposed Procedures p RIGHT REVERSE TOTAL SHOULDER ARTHROPLASTY 50790 M19.019(Right) - Karley Sauceda MD Related Problem List Diagnoses (1) Complete rotator cuff tear or rupture of right shoulder, not specified as traumatic: Qualifiers: Rotator cuff tear trauma status: unspecified whether traumatic Qualified Code(s): M75.121 - Complete rotator cuff tear or rupture of right shoulder, not specified as traumatic (2) Primary osteoarthritis, right shoulder:
--- NOTE | 2021-01-19 13:58 | P.ANESUD_ITS ---
Pre-Anesthetic Update Pre-Anesthetic Assessment: Date of Surgery/Procedure: 01/19/21 Preop Diane gnosis: Right rotator cuff arthropathy with severe DJD Proposed Procedure: Operation Date: 01/19/21 13:30 Proposed Procedures p RIGHT REVERSE TOTAL SHOULDER ARTHROPLASTY 73075 M19.019(Right) - Karley Sauceda MD Any changes to Pre-Anesthetic Assessment?: No Last Intake: Intake Last Liquid Date 01/19/21 Last Liquid Time 08:00 Last Solid Date 01/18/21 Last Solid Time 17:00 Vitals: Temperature 97.8 F 01/19/21 11:21 Pulse Rate 100 01/19/21 11:21 Pulse Rhythm 01/19/21 11:42 Pulse Strength 3+ Normal 01/19/21 11:42 Respiratory Rate 18 01/19/21 11:21 Blood Pressure 112/86 01/19/21 11:21 Blood Pressure Jaimee n 94 01/19/21 11:21 Pulse Oximetry 97 01/19/21 11:21 Oxygen Delivery Me thod 01/19/21 11:42 Exam: Pre-Anes Outpt Exam: alert, oriented x 3, clear to auscultation bilaterally and regular rate & rhythm Cardiac Studies: No Data to Display
--- NOTE | 2021-01-19 13:59 | ANES.PROC ---
Anesthesia Procedures Procedure/Date: 01/19/21 Nerve Block ^: Nerve Block 1: Main Anesthesia: general anesthesia Consent: requested by attending/covering physician, from patient, risks and benefits reviewed and patient agrees to proceed Nerve block location: interscalene (R) Anesthesia monitors applied: pulse oximetry, EKG, BP cuff and oxygen Nerve block position: semi sitting Anesthetic Used: ropivicaine 0.5% and with decadron (4 mg) Amount of anesthesia used (mL): 20 Ultrasound used to: recognize landmarks, visualize and ID brachial plexus and visualize and ID interscalene groove Nerve Stimulator Used?: No Interscalene/Femoral BLK: 2 stimuplex 22 g needle used for position and inplane approach, visualize local anesthetic spread and no vascular puncture identified Injection: neg aspiration of heme and paresthesia +/- Patient Tolerated Procedure: well and no complications Complications: none
[2021-01-19] MEDS: vancomycin 1,000 MG in sodium chloride 0.9% 250 ML 250 MG IV (14:13)
[2021-01-19] MEDS: midazolam 1 mg/mL INJ 2 mL 2 MG IVP (14:26)
--- NOTE | 2021-01-19 16:01 | P.OP_ITS ---
Operative Report Date of procedure: January 19, 2021 Pre-op Diagnosis: Right rotator cuff arthropathy with severe DJD Post-op diagnosis: same Post-op Diagnosis: Cloudy Effusion right shoulder Post-op Findings: Aborted surgery due to slightly cloudy high volume shoulder effusion Procedure Done: Right shoulder arthrotomy with synovial biopsy and culture. Aborted Reverse right shoulder arthroplasty Specimens removed/disposition: Culture and synovium for path and culture Pathology: other Pathology: See specimens Surgeon: Karley Sauceda Manager Council: [facility] operating room technicians Anesthesia: General (Intubated) Estimated blood loss (mL): 25 IV fluids (mL): 600 Urine output (mL): 200 Complications: Surgery aborted due to excessive joint effusion which appeared somewhat cloudy. Findings: Large cloudy joint effusion Condition: stable Disposition: PACU (Then to same-day surgery for discharge home) Brief History: This 65-year-old gentleman presented for right reverse shoulder arthroplasty. He was brought to the operating theater and given a general anesthetic. He was positioned for the shoulder arthroplasty. A standard deltopectoral incision was made in the patient's shoulder. Muscle splitting was accomplished. The joint capsule was noted to be very thin and and when entered, there was a very large amount of partially cloudy fluid under pressure. The shoulder was irrigated, but given the cloudiness of the fluid, surgery was aborted. Procedure: The patient was brought to the operating theater and underwent general intubated anesthesia. The patient was placed in a beachchair position and subsequently the right upper extremity was prepped and draped in the usual fashion utilizing DuraPrep. The arm was draped free. A surgical pause was performed prior to commencement of the surgical procedure. At the time of the surgical pause, we confirmed the site and side of surgery as well as administration of appropriate preoperative antibiotics vancomycin 1 g. MRI was also reviewed at that time. Following the surgical pause, an incision was made for deltopectoral approach. The incision was accomplished through skin and soft tissues. Hemostasis was obtained using electrocautery. Clavipectoral fascia was incised. We were then able to do a muscle-splitting approach in the deltopectoral groove area. Biceps tendon was identified and was noted to be very thickened. The capsule of the shoulder was noted to be very thin. It also was very distended secondary to effusion. Because of this, I evaluated the capsule with a Roscoe and very easily perforated the capsule. A large amount of fluid came out under pressure. It was noted to be thickened and cloudy, but there was no gross purulence. Secondary to concern for possible infection, decision was made at that time not to proceed with shoulder replacement due to the significant risk involved. The shoulder and wound were irrigated and closure was accomplished with 2-0 Monocryl was used to close the subcutaneous tissues followed by skin jessika. This was followed by OpSite. The patient was placed in a sling and was returned to the recovery room in satisfactory condition. The patient will be discharged to home to follow-up with me in the office in 5-7 days. There were no complications. Associated Problem List Diagnoses (1) Complete rotator cuff tear or rupture of right shoulder, not specified as traumatic: Qualifiers: Rotator cuff tear trauma status: unspecified whether traumatic Qualified Code(s): M75.121 - Complete rotator cuff tear or rupture of right shoulder, not specified as traumatic (2) Primary osteoarthritis, right shoulder:
--- NOTE | 2021-01-19 16:04 | SUR.PHASEI ---
PT AWAKE ALERT TALKING TO DR NÚÑEZ, PT DENIES PAIN VSS, IV PATENT DRESSING TO RT SHOULDER D/I
--- NOTE | 2021-01-19 17:09 | ANE.PACU2 ---
Inpatient post-anesthesia follow up: Airway intact: Yes Vital signs: Temperature 97 F Pulse Rate 65 Respiratory Rate 18 Blood Pressure 121/70 Pulse Oximetry 98 Oxygen Delivery Me thod Room Air Oxygen Flow Rate 3 Fraction of Inspir ed Oxygen Hydration adequate: Yes Nausea and vomiting: No Pain level: 2 Mental status: Baseline
== END 2021-01-19 17:00 | disposition home or self-care (01) ==
PROVIDERS: PCP Emergency Medicine Emergency Medical Services; Visit Provider Specialist
PROC: (CPT 23044; principal; 2021-01-19 13:30)
DX: M75.121 Complete rotator cuff tear or rupture of right shoulder, not specified as traumatic (principal); M19.011 Primary osteoarthritis, right shoulder; Z53.8 Procedure and treatment not carried out for other reasons; I11.0 Hypertensive heart disease with heart failure; I50.9 Heart failure, unspecified; Z86.19 Personal history of other infectious and parasitic diseases; M19.90 Unspecified osteoarthritis, unspecified site; E11.40 Type 2 diabetes mellitus with diabetic neuropathy, unspecified; F41.9 Anxiety disorder, unspecified; Z87.891 Personal history of nicotine dependence
CPT/HCPCS: 23044; 36415; 51702; 64415; 76942; 80053; 81001; 85025; 87070; 87075; 87176; 87205; 88304; 93005; 96365; J1100; J2250; J2405; J2704; J2795; J3010; J3370; J3490; J7030; J7050

== ENCOUNTER → 2021-02-18 11:56 | Outpatient (BNVA) | payer OTHER, SELFPAY | PROVIDERS: PCP Emergency Medicine Emergency Medical Services; Visit Provider Specialist | DX: M19.011 Primary osteoarthritis, right shoulder (principal) | CPT/HCPCS: 73030 ==

== ENCOUNTER 2021-03-08 12:39 | Outpatient (CLI) | payer OTHER, SELFPAY ==
--- NOTE | 2021-03-08 13:19 | MR_ITS ---
WS: [id number] MRI CERVICAL SPINE NONCONTRAST HISTORY: Chronic neck pain. COMPARISON: 10/18/2019 Technique: Multiplanar, multisequence noncontrast imaging of the cervical spine. Straightening of the normal cervical lordosis. Anterior cervical fusion with interbody spacer at C3-4 is stable. Signal within the cervical cord is normal. Visualized posterior fossa is unremarkable. Craniocervical junction, C1 and C2 relationship, odontoid process and soft tissues are normal. Mucoperiosteal thickening in the sphenoid sinus. C2-C3: Small RIGHT foraminal osteophytes and a central disc protrusion. No significant stenosis. C3-C4: Moderate bilateral facet joint arthritis and foraminal osteophytes. Slightly greater narrowing of the RIGHT foramen. Mild progression since the prior study. Moderate RIGHT and mild to moderate LE FT foraminal stenosis. C4-C5: Diffuse osteophytic ridging with mild bilateral facet joint arthritis. Mild to moderate bilate ral foraminal stenosis due to osteophyte disease predominantly. C5-C6: Mild annular disc bulging and osteophytic ridging. Moderate LEFT and mild RIGHT foraminal sten osis due to osteophytes. C6-C7: Mild annular disc bulging and osteophytic ridging. Mild LEFT foraminal stenosis. C7-T1: Mild osteophytic ridging with mild LEFT foraminal narrowing with no progression or change. Paraspinal soft tissue are normal. MR/MR cervical spin wo con* [id number] IMPRESSION: 1. No high-grade central stenosis. 2. Foraminal stenosis as described above at multiple levels. No significant pr ogression since 10/18/2019. 3. Moderate RIGHT and mild to moderate LEFT foraminal stenosis at C3-4. 4. Mild to moderate bilateral foraminal stenosis at C4-5. 5. Moderate LEFT foraminal stenosis at C5-6. 6. Mild LEFT foraminal stenosis at C6-7 and C7-T1. 7. Facet joint arthritis most significant from C3-4 through C5-6.
--- NOTE | 2021-03-08 14:04 | XR_ITS ---
WS: [id number] Asha, Kenneth Cervical spine 3 views. COMPARISON: 08/29/2019 History: Chronic neck pain. Anterior cervical fusion at C3-4 with interbody spacer. Disc spaces are slightly narrowed with mild h ypertrophic osteophytes throughout the cervical spine. No fractures. Lateral masses are aligned and t he odontoid is intact. Mild facet joint arthritis most significant at C3-4 through C5-6, greatest on the LEFT. XR/XR cervical spine 3V* [id number] IMPRESSION: 1. Stable anterior cervical fusion with interbody spacer at C3-4. 2. Moderate facet joint arthritis most significant at C3-4 through C5-6, greate st on the LEFT.
--- NOTE | 2021-03-08 14:04 | XR_ITS ---
WS: [id number] White, Kenneth Lumbar spine, 3 view. HISTORY: Chronic low back pain. COMPARISON: 10/12/2020. Extensive posterior lumbar fusion from L2 to S1. Interbody spacers at L2-3, L3-4 and L4-5. No subside nce or change. No fracture within the hardware. 3 mm retrolisthesis of L2 and L3. Similar to the prior study. No lucency around the hardware. Mild bilateral SI joint sclerosis. XR/XR lumbar spine 2-3V* [id number] IMPRESSION: 1. Stable posterior lumbar fusion from L2 to S1 with interbody spacers at L2-3, L3-4 and L4-5. 2. No fracture.
== END 2021-03-08 12:40 | disposition home or self-care (01) ==
PROVIDERS: PCP Emergency Medicine Emergency Medical Services; Visit Provider Nurse Practitioner Family
DX: M54.2 Cervicalgia (principal); M54.5 Low back pain; M47.812 Spondylosis without myelopathy or radiculopathy, cervical region; M48.02 Spinal stenosis, cervical region; M48.03 Spinal stenosis, cervicothoracic region
CPT/HCPCS: 72040; 72100; 72141

== ENCOUNTER → 2021-03-11 12:23 | Outpatient (BNVA) | payer OTHER, SELFPAY | PROVIDERS: PCP Emergency Medicine Emergency Medical Services; Visit Provider Specialist | DX: Z01.812 Encounter for preprocedural laboratory examination (principal); Z20.822 Contact with and (suspected) exposure to COVID-19 | CPT/HCPCS: 87635 ==

== ENCOUNTER 2021-03-16 16:58 | Observation (INO) | payer OTHER, SELFPAY ==
[2021-03-11 10:53] VITALS: BMI 26.3
[2021-03-11 11:50] LABS: Charge for UA Resulting for Rev
[2021-03-11 11:57] LABS: Basophils # 0.1 10^3/uL (0.0-0.1); Basophils % 0.9 %; Eosinophils # 0.5 10^3/uL (0.0-0.8); Eosinophils % 6.5 %; Hematocrit 42.2 % (42.0-52.0); Hemoglobin 13.9 g/dL (11.7-16.6); Lymphocytes # 2.1 10^3/uL (0.8-4.8); Lymphocytes % 27.1 %; Mean Corpuscular HGB Conc 32.9 g/dL (30.0-36.0); Mean Corpuscular Hemoglobin 29.6 pg (28.0-34.0); Mean Platelet Volume 10.5 fL (7.4-10.4); Monocytes # 0.4 10^3/uL (0.2-0.9); Monocytes % 5.2 %; Nucleated Red Blood Cells % 0 %; Platelet Count 224 10^3/cmm (130-400); Red Blood Count 4.69 10^6/uL (4.1-5.3); Red Cell Distribution Width 14.7 % (12.1-15.1); White Blood Count 7.8 10^3/uL (4.0-10.0)
[2021-03-11 12:00] LABS: Add Urine Microscopic? NO; Bilirubin Urine Neg (Negative); Blood Urine Neg (Negative); Glucose Urine UA Norm (Normal); Ketones Urine Negative (Negative); Leukocyte Esterase Urine Negative (Negative); Nitrate Urine Negative (Negative); Protein Urine Neg (Negative); Urine Appearance Clear (CLEAR); Urine Color Yellow (Yellow); Urobilinogen Urine Norm (Negative); pH Urine 6.5 (5-7)
[2021-03-11 12:28] LABS: Alanine Aminotransferase 12 U/L (0-41); Albumin Level 4.5 g/dL (3.5-5.2); Alkaline Phosphatase 107 IU/L (40-130); Anion Gap 16.1 (5-19); Aspartate Amino Transferase 15 U/L (0-40); Blood Urea Nitrogen 14 mg/dL (8-23); Calcium 9.2 mg/dL (8.5-10.5); Carbon Dioxide 29 mmol/L (22-29); Chloride 101 mmol/L (98-107); Globulin 2.8 g/dL (1.3-4.6); Glomerular Filtration Rate 113.2 mL/min (90-130); Glucose 172 mg/dL (65-115); Osmolality Calculated 299 mOsm/kg (285-295); Potassium 4.1 mmol/L (3.5-5.1); Sodium 142 mmol/L (136-145); Total Bilirubin 0.3 mg/dL (0.15-1.2); Total Protein 7.3 g/dL (6.6-8.7)
--- NOTE | 2021-03-11 12:47 | P.ANESASSM_ITS ---
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 Proposed Procedure: Operation Date: 03/16/21 07:00 Proposed Procedures p right Total Reverse Shoulder Arthroplasty 36271 M75.121 M75.41 S49.90XA M19.011(Right) - Karley Sauceda MD Was Beta Gregory taken within 24 hours: N/A Was Clonidine taken within 24 hours: N/A Social: Social History: Tobacco and No alcohol Comment: davis Exam: Pre-Anes Outpt Exam: alert, oriented x 3, clear to auscultation bilaterally and regular rate & rhythm Airway: Submandibular: WNL Cervical ROM: WNL MP: 2 Dentition: Chipped Additional comments: Very poor dentition, multiple chipped Pulmonary: Pulmonary: COPD CV/HEM: CV/HEM: Afib and HTN Metabolic: Metabolic: DM Musc/skel: Musc/skel: Lower Back Pain and OA/DJD Neuropsych: Neuropsych: Anxiety and Depression Anesthetic Plan: ASA status: 3 Anesthesia: General and Regional (specify below) (Interscalene nerve blk) Risk of > 500 ml blood loss (7ml/kg in children): No PFSH Anesthesia PFSH: Medical History Anxiety Back pain Depressive disorder Diabetes Edema, peripheral Foraminal stenosis of cervical region Hypertension Neck pain New onset atrial fibrillation Shoulder pain, bilateral Surgical History Fusion of lumbar spine H/O shoulder surgery History of penile implant Hx of cholecystectomy Status post cervical spinal fusion 07/18/2019 C3-C4 ACDFF Family History Other Cancer Paroxysmal A-fib Stroke Social History Smoking and tobacco status: former smoker Alcohol intake: never Lives independently: Yes Household members: none Marital status: Current occupational status: retired and disabled History of recent travel: No Data Anesthesia CBC & Chem 7: 03/11/21 11:20 03/11/21 11:20 Other Labs: Laboratory Results - last 48 hr 07/03/11/21 03/11/21 11:20 11:20 11:20 WBC 7.8 RBC 4.69 Hgb 13.9 Hct 42.2 MCV 90.0 MCH 29.6 MCHC 32.9 RDW 14.7 Plt Count 224 MPV 10.5 H Neut % (Auto) 60.0 Lymph % (Auto) 27.1 [place] % (Auto) 5.2 Eos % (Auto) 6.5 Baso % (Auto) 0.9 Neut # (Auto) 4.70 Lymph # (Auto) 2.1 [place] # (Auto) 0.4 Eos # (Auto) 0.5 Baso # (Auto) 0.1 Nucleated RBC % (auto) 0 Nucleated RBCs # 0.0 Sodium 142 Potassium 4.1 Chloride 101 Carbon Dioxide 29 Anion Gap 16.1 BUN 14 Creatinine 0.7 GFR Calculation 113.2 Glucose 172 H Calculated Osmolality 299 H Calcium 9.2 Total Bilirubin 0.3 AST 15 ALT 12 Alkaline Phosphatase 107 Total Protein 7.3 Albumin 4.5 Globulin 2.8 Urine Color Yellow Urine Appearance Clear Urine pH 6.5 Ur Specific [place] 1.010 Urine Protein Neg Urine Glucose (UA) Norm Urine Ketones Negative Urine Blood Neg Urine Nitrate Negative Urine Bilirubin Neg Urine Urobilinogen Norm Ur Leukocyte Esterase Negative Urine RBC Cancelled Urine WBC Cancelled Ur Squamous Epith Cells Cancelled Ur Transition Epith Cell Cancelled Ur Renal Epithelial Cell Cancelled Calcium Oxalate Crystal Cancelled Uric Acid Crystals Cancelled Triple Phos Crystals Cancelled Other Crystals Cancelled Amorphous Sediment Cancelled Urine Bacteria Cancelled Hyaline Casts Cancelled Fine Granular Casts Cancelled Coarse Granular Casts Cancelled RBC Casts Cancelled Other Casts Cancelled Urine Mucus Cancelled Urine Trichomonas Cancelled Urine Yeast Cancelled Urine Sperm Cancelled Ur Oval Fat Bodies Cancelled Cardiac Studies: No Data to Display
[2021-03-16] VITALS (14 sets, daily range): BP systolic 110–135; BP diastolic 61–78; PULSE 59–69; RESP 16–24; TEMP 36.4–36.6; O2SAT 94–98
--- NOTE | 2021-03-16 | SCC_ITS ---
Procedure Done: Reverse right shoulder arthroplasty with biceps tenodesis 17.1 seconds of fluoroscopic guidance, for a cumulative dose of 1.26 mGy, was provided to Dr. Sauceda by the radiology department. C-arm images of the RIGHT shoulder were saved for the patient's permanent record. [facility]
--- NOTE | 2021-03-16 10:05 | P.ANESUD_ITS ---
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 Proposed Procedure: Operation Date: 03/16/21 10:15 Proposed Procedures p right Total Reverse Shoulder Arthroplasty 64300 M75.121 M75.41 S49.90XA M19.011(Right) - Karley Sauceda MD Any changes to Pre-Anesthetic Assessment?: No Last Intake: Intake Last Liquid Date 03/15/21 Last Liquid Time 19:30 Last Solid Date 03/15/21 Last Solid Time 17:00 Vitals: Temperature 97.5 F L 03/16/21 09:53 Temperature Source Temporal Artery S can 03/16/21 09:53 Pulse Rate 59 L 03/16/21 09:53 Pulse Rhythm 03/16/21 09:53 Pulse Strength 3+ Normal 03/16/21 09:53 Respiratory Rate 18 03/16/21 09:53 Blood Pressure 135/77 03/16/21 09:53 Blood Pressure Jaimee n 96 03/16/21 09:53 Pulse Oximetry 98 03/16/21 09:53 Oxygen Delivery Me thod 03/16/21 09:53 Exam: Pre-Anes Outpt Exam: alert, oriented x 3, clear to auscultation bilaterally and regular rate & rhythm Cardiac Studies: No Data to Display
[2021-03-16] MEDS: acetaminophen 1,000 MG/100 ML PIGGYBACK 400 MG IV (10:21)
[2021-03-16] MEDS: sodium chloride 0.9% 1,000 ML 30 ML IV (10:21)
--- NOTE | 2021-03-16 12:04 | W.PM.OPSUD ---
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
[2021-03-16] MEDS: midazolam 1 mg/mL INJ 5 ML 5 MG IVP (14:00)
--- NOTE | 2021-03-16 14:43 | ANES.PROC ---
Anesthesia Procedures Procedure/Date: 03/16/21 Nerve Block ^: Nerve Block 1: Main Anesthesia: general anesthesia Time Out Performed: Yes Consent: requested by attending/covering physician, from patient, risks and benefits reviewed and patient agrees to proceed Nerve block location: interscalene (R) Anesthesia monitors applied: pulse oximetry, EKG, BP cuff and oxygen Nerve block position: semi sitting Anesthetic Used: ropivicaine 0.5% and with decadron (3 mg) Amount of anesthesia used (mL): 20 Ultrasound used to: recognize landmarks, visualize and ID brachial plexus and visualize and ID interscalene groove Nerve Stimulator Used?: No Interscalene/Femoral BLK: 2 stimuplex 22 g needle used for position and inplane approach, visualize local anesthetic spread and no vascular puncture identified Injection: neg aspiration of heme Patient Tolerated Procedure: well and no complications Complications: none
[2021-03-16] MEDS: clindamycin 600 MG/50 ML PREMIX 100 MG IV (16:00)
[2021-03-16] MEDS: ceFAZolin 1,000 mg SDV 1000 MG IRRIGATION (16:30)
[2021-03-16] MEDS: vancomycin 1,000 MG SDV 1000 MG XX (16:39)
--- NOTE | 2021-03-16 18:26 | XR_ITS ---
WS: [id number] Right shoulder, C-arm fluoroscopy in the OR, 03/16/2021 Clinical Data: OR PICS Comparison: Right shoulder, 02/18/2021. Findings: A total right shoulder arthroplasty has been performed. XR/XR shoulder RT min 2V* [id number] Impression: Right shoulder arthroplasty.
--- NOTE | 2021-03-16 19:19 | SUR.PHASEI ---
PT TO PACU EARLIER ON RA AWAKE ALERT TALKATIVE SATS 95% RESP UNLABORED , IV PATENT RT SHOULDER DRESSING D/I FIRST ICE TO SITE, SLING IN PLACE, DISTAL FINGERS PINK WARM WITH CAP REFILL LESS THAN 3 SECONDS, PT STATES SLEEPY SENSATION TO DISTAL FINGERS BUT PT ABLE TO MOVE FINGERS TO COMMAND. HOB AT 30 DEGREES MONITOR SR.
--- NOTE | 2021-03-16 19:22 | XR_ITS ---
WS: [id number] Right shoulder, AP supine portable view, 03/16/2021 Clinical Data: POST REVERSE TOTAL SHOULDER Comparison: None. Findings: The shoulder arthroplasty is in good position. The medullary limb of the prosthesis is within the pro ximal humeral medullary canal. XR/XR shoulder RT 1V 35413 Impression: Right shoulder arthroplasty.
--- NOTE | 2021-03-16 19:28 | SUR.PHASEI ---
X RAY HERE PT AWAKE ALERT DENIES PAIN AND NAUSEA, TAKING OCC ICE CHIPS, VSS HOLDING PT TO GIVE REPORT TO THE FLOOR.
--- NOTE | 2021-03-16 20:08 | P.OP_ITS ---
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 Enlarged biceps tendon. Procedure Done: Reverse right shoulder arthroplasty with biceps tenodesis Implants: Sylvie reverse shoulder arthroplasty system with a size 28 glenoid baseplate peripheral screws x4 including two 16mm screws into 20 mm screws as well as a 24 mm center screw bicortical. A concentric glenosphere size 32 mm with a 2 mm offset. A size 15 mm reunion S press-fit humeral stem with a 32 mm x 4 mm humeral cup and a 32 mm x 8 mm humeral insert Specimens removed/disposition: Humeral head, disposed of Pathology: none sent Surgeon: Karley Sauceda Cold Storage Supervisor: [facility] operating room technicians Anesthesia: General (Intubated, ASA 3 with regional supplemental block) Estimated blood loss (mL): 250 IV fluids (mL): 1,200 Urine output (mL): 300 Complications: None Findings: Thickened biceps tendon with absent rotator cuff, synovium, severe degenerative osteoarthritis of the glenohumeral joint Condition: stable Disposition: PACU (Then to floor for postoperative rehabilitation) Brief History: This 65-year-old gentleman presented with complaints of severe right shoulder pain following complete rotator cuff tear. He had previously undergone repair to the shoulder, but had severe pain and swelling in the shoulder. Initially, he was brought to the operating room and the fluid was quite inflammatory looking and the surgical procedure was aborted. Subsequently, we were able to proceed when cultures were negative. Risks and complications were discussed with the patient. Consents were signed and questions were answered. He was ready to proceed with reverse shoulder arthroplasty. Procedure: Patient was brought to the operating theater and was positioned in a beachchair position. Patient was secured on the table and was positioned so that full extension of the arm was possible. Head was stabilized appropriately. Patient was administered his general anesthesia prior to positioning. He also had a supplemental regional block. The patient's right upper extremity was prepped and draped free. Care was taken to assure full access to the shoulder. Prior to commencement of the surgical procedure, a surgical pause was performed. At the time of the surgical pause, we identified the patient, availability of equipment, and appropriate administration of preoperative prophylactic IV antibiotics in the form of clindamycin 600 mg. Following surgical pause, the procedure commenced. Standard deltopectoral type incision was made. The patient's previous incision from the aborted procedure was incorporated and extended. This began 3 to 4 cm medial to the acromioclavicular joint and extended distally over the coracoid process and along the deltopectoral interval. A deltoid splitting incision was made to enter the area of the capsule and rotator cuff. Soft tissues were retracted. Anterior capsulotomy was performed. There was not significant rotator cuff remaining to allow separate layers of the rotator cuff and the capsule. Therefore, a full-thickness capsulotomy release both subscapularis and capsule simultaneously. The incision was then extended medially at the superior and inferior margin of the subscapularis tendon. Traction sutures were placed and exposure was accomplished. Circumferentially, capsule was elevated off of the inferior portion of the humeral head. We also removed osteophytes. Humeral neck resection was accomplished using the extra medullary guide. The guide was set at approximately 30 to 35 degrees. The elbow was flexed 90 degrees to allow for assessment of the angle of the humeral resection. Initially, attention was directed to the glenoid after the humeral head had been excised. We had good visualization of the glenoid, and the guide was used to determine the appropriate position for the center guidewire. Once the guidewire had been placed, we were able to ream the glenoid to accommodate the glenoid baseplate. The glenoid baseplate chosen was a size 28. We reamed and then placed the glenoid in appropriate position. We measured the center screw and it measured 24 mm. This was determined to be bicortical. The center screw was placed followed by peripheral screws. We were able to place 4 peripheral screws. These were passed without difficulty and gave excellent security to the glenoid baseplate. The screws were evaluated via x-ray, and they were felt to be appropriately placed. Once the screws were in position, the glenosphere was chosen was a +2 mm offset 32 mm diameter glenosphere. Following placement of the glenosphere, preparation of the humerus was begun. Humeral head have been resected appropriately. Following this, a canal finder was utilized followed by sequential reamers. The reamer was chosen where the reunion S reamers for the short stem. We were able to pass a size 15 reamer, and subsequently, broaching was accomplished. We then were able to ream to a size 16 and passed a size 16 broach. Trial reduction was accomplished, but this broach sat rather proud, and it was felt that the shoulder was too tight. Therefore we elected to remove the size [address] a size 15 broach and countersink it and ream the proximal humerus to allow appropriate length for the humerus and fit of the broach. With the [address], we performed a trial reduction. Initial trial reduction was accomplished with the 4 mm humeral insert, and we subsequently increased to the 8 mm insert to give appropriate range of motion with stability at the same time. Therefore, this was the chosen combination. The broach was removed, and the humeral stem was impacted into position. This was accomplished without difficulty. Onto this was placed the humeral cup and insert combination. This was impacted into position. It was pulled upon to assure that it sat appropriately. The shoulder was reduced and was found to have the stability noted with the trials. Therefore attention was directed to closure. The wound was copiously irrigated. Following irrigation of the wound, the capsule rotator cuff combination was closed with 0 Ethibond in a interrupted fashion. Vancomycin powder was placed, fascial tissues were closed with 0 Vicryl, the subcutaneous tissues were closed with 2-0 Vicryl and the skin was closed with a running 3-0 Monocryl. This was followed by Prinliviao with Dermabond, Opsite, and a sling-shot style sling. The patient was returned to recovery room in a satisfactory condition where he will be discharged to the floor for postoperative rehabilitation. Associated Problem List Diagnoses (1) Complete rotator cuff tear or rupture of right shoulder, not specified as traumatic: Qualifiers: Rotator cuff tear trauma status: unspecified whether traumatic Qualified Code(s): M75.121 - Complete rotator cuff tear or rupture of right shoulder, not specified as traumatic (2) Primary osteoarthritis, right shoulder:
[2021-03-16] MEDS: acetaminophen 500 mg Tablet 1000 MG PO (20:36)
[2021-03-16] MEDS: mirtazapine 15 mg Tablet 30 MG PO (20:37)
[2021-03-16] MEDS: sotalol 80 mg Tablet 40 MG PO (20:37)
[2021-03-17] VITALS (9 sets, daily range): BP systolic 124–143; BP diastolic 67–85; PULSE 69–96; RESP 16–18; TEMP 36.4–37.1; O2SAT 95–99
[2021-03-17] MEDS: clindamycin 600 MG/50 ML PREMIX 100 MG IV ×2 (00:05→11:15)
[2021-03-17] MEDS: acetaminophen 500 mg Tablet 1000 MG PO ×2 (03:48→11:14)
[2021-03-17] MEDS: oxyCODONE 5 mg IR Tab/Cap PO ×3 (03:51→15:59)
[2021-03-17] MEDS: sotalol 80 mg Tablet 40 MG PO (05:56)
[2021-03-17] MEDS: cyclobenzaprine 10 mg Tablet PO (06:01)
--- NOTE | 2021-03-17 10:13 | PC.CHAP ---
Pastoral Care Encounter/Spiritual Assessment Type of Contact [] Declined mangle roller visit [] Patient/Family/Request visit [] Outpatient visit [] Follow-up visit [] Physician referral [] Code/Alert [x] Routine visit [] Staff referral [] Actively dying [] Patient sleeping [] Family support [] [] Out of room [] Palliative care [] [x] Receiving care in room [] Pre-surgical visit [] Trauma [] Long length of stay [] ICU visit [] Other: Relational/Emotional Strength [] Patient feels connected with others/family/visitors/staff [] Distress [] Loneliness/isolation [] Abandonment Spirituality of Patient [] Person of Libertad [] Attends Uatsdin of their Libertad [] Believes in Prayer [] Reads Bible or Anabaptism materials [] There are Spiritual issues to be addressed Environmental Restoration Planner Interventions [x] Prayer [] Active listening [] Non-anxious presence [] Spiritual/emotional support [] Crisis/trauma care [] Spiritual counseling [] Bereavement support [] Provided bereavement packet [] Provided Bible/devotional materials [] Provided toy/stuffed animal, coloring book to patient or family member [] Provided Communion [] Anointing/[place] [] Salvation [] Completed spiritual assessment [] Other: Impact on Illness or Injury [] Angry [] Fearful [] Anxious [] Often cries [] Exhaustion [] Unable to work [] Unable to attend pentecostalism [] Unable to walk/stand [] Unable to read [] Unable to drive [] Unable to eat/drink [] Unable to sleep [] Unable to be with family [] Patient intubated [] Other: Summary Time spent with patient
[2021-03-17] MEDS: potassium chloride ER 20 mEq Tablet PO (11:07)
[2021-03-17] MEDS: pantoprazole DR 40 mg Tablet PO (11:07)
[2021-03-17] MEDS: predniSONE 20 mg Tablet PO (11:07)
[2021-03-17] MEDS: CELEcoxib 200 mg Capsule PO (11:07)
[2021-03-17] MEDS: duloxetine 60 mg Capsule PO (11:07)
[2021-03-17] MEDS: spironolactone 25 mg Tablet PO (11:07)
[2021-03-17] MEDS: apixaban 5 mg Tablet PO (11:07)
[2021-03-17] MEDS: amlodipine 5 mg Tablet PO (11:07)
[2021-03-17] MEDS: TORSEmide 20 mg Tablet PO (11:14)
--- NOTE | 2021-03-17 14:23 | PM.DCS ---
Discharge Providers Date of Admission: 03/16/21 16:58 Date of Discharge: March 17, 2021 Attending Provider at Admission: Karley Sauceda MD Attending Provider at Discharge: Karley Sauceda MD Primary Care Provider: Chau Holloway DO Diagnoses at Discharge Discharge Diagnosis (1) Complete rotator cuff tear or rupture of right shoulder, not specified as traumatic: Status: Acute Qualifiers: Rotator cuff tear trauma status: unspecified whether traumatic Qualified Code(s): M75.121 - Complete rotator cuff tear or rupture of right shoulder, not specified as traumatic (2) Primary osteoarthritis, right shoulder: Status: Acute (3) Status post reverse arthroplasty of shoulder: Status: Acute Permanent problem details: [employer] reverse shoulder arthroplasty system with a size 28 glenoid baseplate peripheral screws x4 including two 16mm screws into 20 mm screws as well as a 24 mm center screw bicortical. A concentric glenosphere size 32 mm with a 2 mm offset. A size 15 mm reunion S press-fit humeral stem with a 32 mm x 4 mm humeral cup and a 32 mm x 8 mm humeral insert Reason for Visit Reason for Visit: Total Reverse Shoulder Arthroplasty Hospital Course Hospital Course Patient presented to the hospital yesterday for same-day surgery. He underwent a right reverse shoulder arthroplasty which was well-tolerated. The surgery was uneventful. On the morning following surgery, he did have some bleeding from his wound which required reinforcement. By the time he was seen at approximately lunchtime, there was no further drainage and the bleeding had stopped. The dressing was removed. The wound was benign. The wound was to be covered with an OpSite type dressing. The patient was cautioned against extending his shoulder, and occupational therapy was present to review the protocol which she was also given a copy of. He will follow up with me as scheduled. He understands the procedure postoperatively and the risks. Physical Exam Const: COMMON NORMALS: no acute distress, average body habitus, patient oriented x3 and alert GENERAL APPEARANCE: cooperative and comfortable ORIENTATION/CONSCIOUSNESS: Yes awake HENMT: COMMON NORMALS: normocephalic and atraumatic HEAD & SCALP: normocephalic and atraumatic Eye: GENERAL EYE: appearance normal, both eyes and all related structures Chest: COMMONS NORMALS: normal inspection of the chest Resp: COMMON NORMALS: normal respiratory effort EFFORT & INSPECTION: Yes able to speak in complete sentences and Yes symmetric chest movement Extremity: RIGHT UPPER EXTREMITY: Yes shoulder joint (Dressing is removed, wound is benign. No active bleeding or drainage) Right shoulder: Yes Right shoulder joint inspection exam (No erythema or evidence of infection), Yes Right shoulder joint ROM exam (Not evaluated) and Yes Right shoulder joint neurovascular exam (Intact distally) Neuro: COMMON NORMALS: patient oriented x3 SENSORIUM/ORIENTATION: Yes alert Psych: COMMON NORMALS: mental status grossly normal APPEARANCE: Yes grossly normal ATTITUDE: Yes calm and Yes engaged ATTENTION/CONCENTRATION: Yes attention grossly intact Skin: COMMON NORMALS: no rashes or lesions noted GENERAL SKIN EXAM: no rashes or lesions noted Urinary Catheter Management^: Adams: Cath Placed During This Visit: yes, but has since been removed by the nurse Urinary Catheter Date of Insertion: 03/16/21 Urinary Catheter Time of Insertion: 16:00 Date Urinary Catheter Removed: 03/16/21 Time Urinary Catheter Discontinued: 18:41 Discharge Data Data Completed and Pending: Completed Studies During Hospitalization Category Date Time Status XR shoulder RT 1V 75683 Routine Exams 03/16/21 19:22 Completed XR shoulder RT mi n 2V* [id number] Routin e Exams 03/16/21 18:26 Completed Vitals: Last Vital Signs Temp 98.0 F 03/17/21 10:59 Pulse 87 03/17/21 10:59 Resp 16 03/17/21 10:59 BP 127/76 03/17/21 10:59 Pulse Ox 97 03/17/21 10:59 Discharge Plan Discharge Patient Disposition: Home Health Service Condition: Stable Prescriptions: New acetaminophen 500 mg Tablet 1,000 mg PO Q8H 15 Days Qty: 90 RF: 0 oxycodone 5 mg Tablet 5 - 10 mg PO Q4H PRN (Reason: Moderate To Severe Pain) Qty: 30 RF: 0 Continued (DME) ASO ankle brace Qty: 1 RF: 0 (DME) Custom Orthotics See Rx Instructions .Route .MEDSUPPLY Qty: 1 RF: 0 cyclobenzaprine 10 mg tablet 10 mg PO TID PRN (Reason: muscle spasm) RF: 0 magnesium oxide 400 mg magnesium capsule 400 mg PO DAILY RF: 0 pantoprazole 40 mg tablet,delayed release (DR/EC) 40 mg PO DAILY RF: 0 lactase 9,000 unit tablet 9,000 unit PO DAILY RF: 0 cetirizine [Zyrtec] 10 mg tablet 10 mg PO DAILY PRN (Reason: allergy symptoms) RF: 0 diphenhydramine HCl [Allergy (diphenhydramine)] 25 mg tablet 25 mg PO BID PRN (Reason: itching) RF: 0 triamcinolone acetonide [Children's Nasacort] 55 mcg aerosol,spray 1 spray INTRANASAL DAILY RF: 0 acyclovir [Zovirax] 5 % cream 1 applic TOPICAL DAILY PRN (Reason: Itching) RF: 0 duloxetine 60 mg capsule,delayed release(DR/EC) 60 mg PO DAILY Qty: 30 RF: 2 spironolactone 25 mg tablet 25 mg PO DAILY Qty: 90 RF: 3 amlodipine 5 mg tablet 5 mg PO DAILY Qty: 90 RF: 3 torsemide 20 mg tablet 20 mg PO DAILY Qty: 90 RF: 3 sotalol 80 mg tablet 80 mg PO DIRECTED Qty: 180 RF: 2 potassium chloride 20 mEq tablet extended release 20 meq PO DAILY Qty: 90 RF: 1 celecoxib 200 mg capsule See Rx Instructions .ROUTE .COMPLEX Qty: 30 RF: 0 mirtazapine 15 mg tablet 30 mg PO BEDTIME RF: 0 Eliquis 5 mg Tablet 5 mg PO BID RF: 0 hydrocodone-acetaminophen [[place]] 5-325 mg tablet 1 tab PO Q4H PRN (Reason: pain) Qty: 20 RF: 0 ondansetron 4 mg tablet,disintegrating 4 mg PO Q8H PRN (Reason: Nausea) RF: 0 prednisone 20 mg tablet 20 mg PO DAILY Qty: 7 RF: 0 diclofenac sodium [Voltaren] 1 % gel 4 g topical QID Qty: 100 RF: 0 Discharge Orders: Discharge Order (Routine); Ordered 03/17/21 Ordered By: Karley Sauceda Referrals: [facility] [Outside] Karley Sauceda MD [Physician] - 03/31/21 11:15 am Discharge Diet: Advance as tolerated Discharge Activity: Limit activity as instructed and As per PT/OT instructions Patient Instructions: Oxycodone/Acetaminophen (By mouth), Shoulder Arthroplasty (DC), Opioid Safety Activity Restrictions/Additional Instructions: Ice to right shoulder. Follow reverse shoulder protocol that you were given. You may shower, but do not submerge in water. Discharge Attestations Time Spent in Discharge Care*: greater than 30 min Quality Metrics Clinical Quality Measures During this hospital stay, did patient experience: None Coding Level of Care Code Acute Chg FW DC note Diagnoses Complete rotator cuff tear or rupture of right shoulder, not specified as traumatic M75.121 Rotator cuff tear trauma status: unspecified whether traumatic Primary osteoarthritis, right shoulder M19.011 Status post reverse arthroplasty of shoulder Z96.619
== END 2021-03-17 16:37 | disposition home health service (06) ==
LOC: MEDSURG 16:58
PROVIDERS: Admitting Provider Specialist; PCP Emergency Medicine Emergency Medical Services; Visit Provider Specialist
PROC: (CPT 23472; principal; 2021-03-16 10:15)
DX: M75.121 Complete rotator cuff tear or rupture of right shoulder, not specified as traumatic (principal); M19.011 Primary osteoarthritis, right shoulder; J44.9 Chronic obstructive pulmonary disease, unspecified; I48.91 Unspecified atrial fibrillation; I10 Essential (primary) hypertension; E11.9 Type 2 diabetes mellitus without complications; Z98.1 Arthrodesis status; Z87.891 Personal history of nicotine dependence
CPT/HCPCS: 23472; 36415; 51702; 64415; 73020; 73030; 76000; 76942; 80053; 81003; 85025; 96365; 97110; 97161; 97167; 97530; C1776; G0378; J0690; J1100; J2250; J2370; J2405; J2704; J2795; J3010; J3370; J3490; J7030; J7512

== ENCOUNTER 2021-04-09 13:05 | Emergency (ER) | payer OTHER, MEDICARE, SELFPAY ==
[2021-04-09 13:29] VITALS: BP 180/80; PULSE 61; RESP 15; TEMP 36.7; O2SAT 100; BMI 26.0
[2021-04-09 16:38] VITALS: BP 182/94; PULSE 65; RESP 15; O2SAT 100
--- NOTE | 2021-04-09 17:10 | XRR_ITS ---
PROCEDURE INFORMATION: Exam: XR Chest Exam date and time: 04/09/2021 5:10 PM Age: 65 years old Clinical indication: Shortness of breath; Additional info: SOB TECHNIQUE: Imaging protocol: XR of the chest. Views: 1 view. COMPARISON: CR XR chest 1V portable [id number] 10/12/2020 1:45 PM FINDINGS: Lungs: Azygos fissure incidentally noted. Pulmonary sutures are seen in the left lower lung. There is no consolidation. Pleural spaces: There is no pleural effusion or pneumothorax. Heart/Mediastinum: Cardiomediastinal contours are unremarkable. Bones/joints: Unremarkable right shoulder prosthesis. No acute fracture. XR/XR chest 1V portable [id number] IMPRESSION: No acute findings.
[2021-04-09 17:42] LABS: Basophils # 0.1 10^3/uL (0.0-0.1); Basophils % 0.6 %; Eosinophils % 0.2 %; Hematocrit 37.4 % (42.0-52.0); Hemoglobin 12.9 g/dL (11.7-16.6); Lymphocytes # 1.3 10^3/uL (0.8-4.8); Lymphocytes % 14.4 %; Mean Corpuscular HGB Conc 34.5 g/dL (30.0-36.0); Mean Corpuscular Hemoglobin 30.1 pg (28.0-34.0); Mean Corpuscular Volume 87.4 fl (80-94); Mean Platelet Volume 10.2 fL (7.4-10.4); Monocytes # 0.2 10^3/uL (0.2-0.9); Monocytes % 2.8 %; Neutrophils # 7.11 10^3/uL (1.8-7.7); Neutrophils % 81.8 %; Nucleated Red Blood Cells % 0 %; Platelet Count 211 10^3/cmm (130-400); Red Blood Count 4.28 10^6/uL (4.1-5.3); White Blood Count 8.7 10^3/uL (4.0-10.0)
[2021-04-09 18:12] LABS: Lactic Sepsis W/Reflex 3.3 mmol/L (0.5-2.2)
[2021-04-09 18:13] LABS: Fibrinogen 391 mg/dL (174-498)
[2021-04-09 18:15] LABS: Alanine Aminotransferase 13 U/L (0-41); Albumin Level 4.7 g/dL (3.5-5.2); Alkaline Phosphatase 111 IU/L (40-130); Anion Gap 18.8 (5-19); Aspartate Amino Transferase 16 U/L (0-40); Blood Urea Nitrogen 11 mg/dL (8-23); C Reactive Protein 4.2 mg/L (0.0-4.9); Calcium 9.3 mg/dL (8.5-10.5); Carbon Dioxide 22 mmol/L (22-29); Chloride 101 mmol/L (98-107); Globulin 3.2 g/dL (1.3-4.6); Glomerular Filtration Rate 113.2 mL/min (90-130); Glucose 154 mg/dL (65-115); Osmolality Calculated 288 mOsm/kg (285-295); Potassium 3.8 mmol/L (3.5-5.1); Sodium 138 mmol/L (136-145); Total Bilirubin 0.5 mg/dL (0.15-1.2); Total Protein 7.9 g/dL (6.6-8.7)
[2021-04-09 18:21] LABS: Procalcitonin 0.04 ng/mL (0-0.5)
[2021-04-09 19:10] LABS: SARS Covid-2 Antigen Negative (Negative)
[2021-04-09] MEDS: sodium chloride 0.9% 1,000 ML 999 ML IV (19:17)
[2021-04-09] MEDS: ondansetron 2 mg/ML SDV 2 mL 4 MG IVP (19:17)
[2021-04-09 19:20] VITALS: BP 143/71; PULSE 80; RESP 17; O2SAT 99
[2021-04-09 19:26] LABS: Reflex Lactate Order REFLEX LACTIC ORDERD
--- NOTE | 2021-04-09 19:28 | ED_ITS ---
HPI - Nausea/Vomiting/Diarrhea General: Chief complaint: Nausea/Vomiting/Diarrhea Stated complaint: n/v; chills Time Seen by Provider: 04/09/21 16:02 History of Present Illness: HPI Narrative: Symptoms started today. Nausea vomiting and diarrhea. He has vomited several times today and had several episodes of diarrhea. Denies any fever but has chills. No sick contacts. MD elicited complaint: nausea, vomiting and diarrhea Onset (ago): hour(s) (8) Description of vomiting: food contents Description of diarrhea: watery Associated nausea: Yes Associated abdominal pain: No Exacerbating factors: none Relieving factors: none Associated symtoms: Reports nausea; Denies altered mental status, anxiety, bloating, change in vision, chest pain, cough, diaphoresis, decreased urine output, dizziness, dysuria, epistaxis, fatigue, fecal incontinence, fevers/chills, headache(s), anorexia, malaise, myalgias, numbness, palpitations, rash, short of breath, syncope, tenesmus, tinnitus or weakness Review of Systems General: Reports: 10 or more systems reviewed and unremarkable except in HPI and below Const: Denies: fatigue, malaise or diaphoresis Eyes: Denies: change in vision ENMT: Denies: tinnitus or epistaxis Card: Denies: chest pain, palpitations or syncope GI: Reports: nausea; Denies: bloating or fecal incontinence : Denies: dysuria Neuro: Denies: headache(s) or dizziness Psych: Denies: anxiety PFSH ED PFSH: Medical History (Reviewed 04/09/21 @ 23:51 by Pao Marcum MD, [facility] [place]) Anxiety Back pain Depressive disorder Diabetes Edema, peripheral Foraminal stenosis of cervical region Hypertension Neck pain New onset atrial fibrillation Shoulder pain, bilateral Surgical History (Reviewed 04/09/21 @ 23:51 by Pao Marcum MD, [facility] [place]) Fusion of lumbar spine H/O shoulder surgery History of penile implant Hx of cholecystectomy Status post cervical spinal fusion 07/18/2019 C3-C4 ACDFF Family History (Reviewed 04/09/21 @ 23:51 by Pao Marcum MD, [facility] [place]) Other Cancer Paroxysmal A-fib Stroke Social History Smoking and tobacco status: former smoker Alcohol intake: never Lives independently: Yes Household members: none Marital status: Current occupational status: retired and disabled History of recent travel: No Physical Exam Const: COMMON NORMALS: no acute distress, average body habitus, patient orie nted x3, no limitations, healthy appearing, alert and well nourished EXAM LIMITATIONS: no altered mental status HENMT: COMMON NORMALS: normocephalic, atraumatic and moist oral mucous membranes HEAD & SCALP: normocephalic and atraumatic Neck/C-Spine: COMMON NORMALS: no meningeal signs and no JVD Resp: COMMON NORMALS: normal respiratory effort, No retractions, No use of accessory muscles, clear to auscultation bilaterally and percussion normal AUSCULTATION: clear to auscultation bilaterally PERCUSSION: percussion normal Cardio: COMMON NORMALS: no JVD, regular rate, regular rhythm, S1 normal heart sound present, S2 normal heart sound present, No gallops present (Cardio), No clicks present (Cardio), No murmurs present (Cardio), No rub (Cardio) and Peripheral pulses 2+ throughout RATE: regular rate RHYTHM: regular rhythm HEART SOUNDS: S1 normal heart sound present and S2 normal heart sound present PERIPHERAL PULSES: Peripheral pulses 2+ throughout GI: COMMON NORMALS: Normal to inspection, nondistended, normoactive bowel sounds present, Soft to palpation, non-tender, No hepatosplenomegaly present, no masses and no bruits PALPATION: Yes Soft to palpation and Yes No hepatosplenomegaly present Extremity: COMMON NORMALS: normal to inspection, full ROM, capillary refill normal, no calf tenderness and no pedal edema Neuro: COMMON NORMALS: patient oriented x3 SENSORIUM/ORIENTATION: Yes alert MENINGEAL SIGNS: Yes no meningeal signs Skin: COMMON NORMALS: no rashes or lesions noted, no wounds, turgor normal, no jaundice, no petechiae and no mottling GENERAL SKIN EXAM: no rashes or lesions noted and turgor normal Course Reevaluation(s): Reevaluation #1: Discussed his lab and imaging findings with him. Negative for acute findings. We will discharge him home with no new orders. He voiced understanding and is in agreement with the plan. Time: 19:29 Vital Signs: Vital signs: Vital Signs Temperature 98.7 F 08/13/21 19:53 Pulse Rate 90 04/09/21 19:53 Respiratory Rate 18 04/09/21 19:53 Blood Pressure 143/71 04/09/21 19:53 Pulse Oximetry 100 04/09/21 19:53 MDM - Nausea/Vomiting/Diarrhea MDM Narrative: Medical decision making narrative: 65-year-old male who presents to the emergency department with nausea vomiting and diarrhea. Evaluation in the emergency department is unremarkable with normal laboratory values including electrolytes. He was tested for COVID-19 and a rapid Covid test was negative. A PCR test was done and sent out. Vital signs stable in the emergency department, work-up unremarkable, so he is discharged home with no new orders. Medical Records: Attestation: I reviewed the patient's medical records. Lab Data: Attestation: I reviewed the patient's lab results. Labs: Lab Results 04/09/21 04/09/21 04/09/21 Range/Units 17:35 17:35 17:35 WBC 8.7 (4.0-10.0) 10^3/ uL RBC 4.28 (4.1-5.3) 10^6/u L Hgb 12.9 (11.7-16.6) g/dL Hct 37.4 L (42.0-52.0) % MCV 87.4 (80-94) fl MCH 30.1 (28.0-34.0) pg MCHC 34.5 (30.0-36.0) g/dL RDW 14.0 (12.1-15.1) % Plt Count 211 (130-400) 10^3/c mm MPV 10.2 (7.4-10.4) fL Neut % (Auto) 81.8 % Lymph % (Auto) 14.4 % [place] % (Auto) 2.8 % Eos % (Auto) 0.2 % Baso % (Auto) 0.6 % Neut # (Auto) 7.11 (1.8-7.7) 10^3/u L Lymph # (Auto) 1.3 (0.8-4.8) 10^3/u L [place] # (Auto) 0.2 (0.2-0.9) 10^3/u L Eos # (Auto) 0.0 (0.0-0.8) 10^3/u L Baso # (Auto) 0.1 (0.0-0.1) 10^3/u L Nucleated RBC % (a uto) 0 % Nucleated RBCs # 0.0 /100WBC Fibrinogen 391 (174-498) mg/dL Sodium 138 (136-145) mmol/L Potassium 3.8 (3.5-5.1) mmol/L Chloride 101 (98-107) mmol/L Carbon Dioxide 22 (22-29) mmol/L Anion Gap 18.8 (5-19) BUN 11 (8-23) mg/dL Creatinine 0.7 (0.7-1.2) mg/dL GFR Calculation 113.2 (90-130) mL/min Glucose 154 H (65-115) mg/dL Calculated Osmolal ity 288 (285-295) mOsm/k g Lactic Acid (0.5-2.2) mmol/L Calcium 9.3 (8.5-10.5) mg/dL Total Bilirubin 0.5 (0.15-1.2) mg/dL AST 16 (0-40) U/L ALT 13 (0-41) U/L Alkaline Phosphata se 111 (40-130) IU/L C-Reactive Protein 4.2 (0.0-4.9) mg/L Total Protein 7.9 (6.6-8.7) g/dL Albumin 4.7 (3.5-5.2) g/dL Globulin 3.2 (1.3-4.6) g/dL Procalcitonin 0.04 (0-0.5) ng/mL SARS-CoV-2 Ag (Rap id) (Negative) 04/09/21 04/09/21 Range/Units 17:35 18:16 WBC (4.0-10.0) 10^3/ uL RBC (4.1-5.3) 10^6/u L Hgb (11.7-16.6) g/dL Hct (42.0-52.0) % MCV (80-94) fl MCH (28.0-34.0) pg MCHC (30.0-36.0) g/dL RDW (12.1-15.1) % Plt Count (130-400) 10^3/c mm MPV (7.4-10.4) fL Neut % (Auto) % Lymph % (Auto) % [place] % (Auto) % Eos % (Auto) % Baso % (Auto) % Neut # (Auto) (1.8-7.7) 10^3/u L Lymph # (Auto) (0.8-4.8) 10^3/u L [place] # (Auto) (0.2-0.9) 10^3/u L Eos # (Auto) (0.0-0.8) 10^3/u L Baso # (Auto) (0.0-0.1) 10^3/u L Nucleated RBC % (a uto) % Nucleated RBCs # /100WBC Fibrinogen (174-498) mg/dL Sodium (136-145) mmol/L Potassium (3.5-5.1) mmol/L Chloride (98-107) mmol/L Carbon Dioxide (22-29) mmol/L Anion Gap (5-19) BUN (8-23) mg/dL Creatinine (0.7-1.2) mg/dL GFR Calculation (90-130) mL/min Glucose (65-115) mg/dL Calculated Osmolal ity (285-295) mOsm/k g Lactic Acid 3.3 H (0.5-2.2) mmol/L Calcium (8.5-10.5) mg/dL Total Bilirubin (0.15-1.2) mg/dL AST (0-40) U/L ALT (0-41) U/L Alkaline Phosphata se (40-130) IU/L C-Reactive Protein (0.0-4.9) mg/L Total Protein (6.6-8.7) g/dL Albumin (3.5-5.2) g/dL Globulin (1.3-4.6) g/dL Procalcitonin (0-0.5) ng/mL SARS-CoV-2 Ag (Rap id) Negative (Negative) Imaging Data^: CXR: Attestation: I personally reviewed and interpreted this imaging study as follows: Radiologist's impression: [address] [id number] ReportSigned Patient: Kenneth Barry #: [id number]: 1955cct#:[id number]/Sex: 65 / MADM Date: 04/09/21Loc: ERRoom/Bed:Attending Dr: Ordering Provider/Ordering MD: Pao Marcum MD, [facility] [place] Date of Service: 04/09/21 Procedure(s): XR chest 1V portable [id number] Accession Number(s): [id number] Report Number: [id number] PROCEDURE INFORMATION: Exam: XR Chest Exam date and time: 04/09/2021 5:10 PM Age: 65 years old Clinical indication: Shortness of breath; Additional info: SOB TECHNIQUE: Imaging protocol: XR of the chest. Views: 1 view. COMPARISON: CR XR chest 1V portable [id number] 10/12/2020 1:45 PM FINDINGS: Lungs: Azygos fissure incidentally noted. Pulmonary sutures are seen in the left lower lung. There is no consolidation. Pleural spaces: There is no pleural effusion or pneumothorax. Heart/Mediastinum: Cardiomediastinal contours are unremarkable. Bones/joints: Unremarkable right shoulder prosthesis. No acute fracture. XR/XR chest 1V portable [id number] IMPRESSION: No acute findings. Dictated By:Richard White MDSigned By:Richard Whiteigned Date/Time:04/09/211754DD/ 52 Discharge Plan Discharge Patient Disposition: Home Clinical Impression: Gastroenteritis Condition: Stable Prescriptions: New Zofran 4 mg tablet 4 mg PO Q8H PRN (Reason: nausea and vomiting) 5 Days Qty: 20 RF: 0 Continued (DME) ASO ankle brace Qty: 1 RF: 0 (DME) Custom Orthotics See Rx Instructions .Route .MEDSUPPLY Qty: 1 RF: 0 cyclobenzaprine 10 mg tablet 10 mg PO TID PRN (Reason: muscle spasm) RF: 0 magnesium oxide 400 mg magnesium capsule 400 mg PO DAILY RF: 0 pantoprazole 40 mg tablet,delayed release (DR/EC) 40 mg PO DAILY RF: 0 lactase 9,000 unit tablet 9,000 unit PO DAILY RF: 0 cetirizine [Zyrtec] 10 mg tablet 10 mg PO DAILY PRN (Reason: allergy symptoms) RF: 0 diphenhydramine HCl [Allergy (diphenhydramine)] 25 mg tablet 25 mg PO BID PRN (Reason: itching) RF: 0 triamcinolone acetonide [Children's Nasacort] 55 mcg aerosol,spray 1 spray INTRANASAL DAILY RF: 0 acyclovir [Zovirax] 5 % cream 1 applic TOPICAL DAILY PRN (Reason: Itching) RF: 0 duloxetine 60 mg capsule,delayed release(DR/EC) 60 mg PO DAILY Qty: 30 RF: 2 spironolactone 25 mg tablet 25 mg PO DAILY Qty: 90 RF: 3 amlodipine 5 mg tablet 5 mg PO DAILY Qty: 90 RF: 3 torsemide 20 mg tablet 20 mg PO DAILY Qty: 90 RF: 3 sotalol 80 mg tablet 80 mg PO DIRECTED Qty: 180 RF: 2 potassium chloride 20 mEq tablet extended release 20 meq PO DAILY Qty: 90 RF: 1 celecoxib 200 mg capsule See Rx Instructions .ROUTE .COMPLEX Qty: 30 RF: 0 mirtazapine 15 mg tablet 30 mg PO BEDTIME RF: 0 Eliquis 5 mg Tablet 5 mg PO BID RF: 0 clotrimazole 10 mg [place] 10 mg MUCOUS MEMBRANE 5XD RF: 0 hydrocodone-acetaminophen 5-325 mg tablet 1 tab PO QID RF: 0 hydroxyzine HCl 25 mg Tablet 25 mg PO TID PRN (Reason: UNKNOWN) RF: 0 azelastine 137 mcg (0.1 %) Aerosol,[place] 2 spray INTRANASAL BID RF: 0 fluticasone propionate 50 mcg/actuation [place],Suspension 2 spray INTRANASAL DAILY RF: 0 multivitamin with iron-mineral Tablet 1 tab PO DAILY RF: 0 tamsulosin 0.4 mg Capsule 0.4 mg PO DAILY RF: 0 gabapentin 100 mg Capsule 100 mg PO TID RF: 0 ondansetron 4 mg tablet,disintegrating 4 mg PO Q8H PRN (Reason: Nausea) RF: 0 Discharge Orders: Discharge ED (Routine); Ordered 04/09/21 Ordered By: Pao Marcum Referrals: Chau Holloway DO [Primary Care Provider] - 1-3 days Discharge Diet: Usual diet Discharge Activity: Increase activity as tolerated Patient Instructions: Gastroenteritis (ED) Activity Restrictions/Additional Instructions: Return for any new or worsening symptoms. Follow-up with your primary care provider within 3 days. Take the nausea medicine as needed for nausea. Continue home medications. You will be contacted with the results of the Covid test that was sent out. Coding Level of Care Code ED Scientific Research Manager for Leonila Aparicio
[2021-04-09 19:53] VITALS: BP 143/71; PULSE 90; RESP 18; TEMP 37.1; O2SAT 100
[2021-04-11 22:28] LABS: Quest SARS-CoV-2 RNA NOT DETECTED (NOT DETECTED)
--- NOTE | 2021-04-12 14:18 | PC.NURSE ---
pt called and given the results of his covid test
== END 2021-04-09 19:50 | disposition home or self-care (01) ==
PROVIDERS: Emergency Provider Family Medicine; PCP Emergency Medicine Emergency Medical Services
DX: K52.9 Noninfective gastroenteritis and colitis, unspecified (principal); E11.9 Type 2 diabetes mellitus without complications; I10 Essential (primary) hypertension; I48.91 Unspecified atrial fibrillation; Z87.891 Personal history of nicotine dependence; Z79.01 Long term (current) use of anticoagulants
CPT/HCPCS: 71045; 80053; 83605; 84145; 85025; 85384; 86140; 87426; 87635; 96361; 96374; 99284; J2405; J7030

== ENCOUNTER → 2021-05-10 13:55 | Outpatient (BNVA) | payer OTHER, MEDICARE, SELFPAY | PROVIDERS: PCP Emergency Medicine Emergency Medical Services; Visit Provider Specialist | DX: Z96.611 Presence of right artificial shoulder joint (principal) | CPT/HCPCS: 73030 ==

== ENCOUNTER → 2021-07-14 15:42 | Outpatient (BNVA) | payer OTHER, SELFPAY | PROVIDERS: PCP Emergency Medicine Emergency Medical Services; Visit Provider Specialist | DX: M19.011 Primary osteoarthritis, right shoulder (principal); Z96.611 Presence of right artificial shoulder joint | CPT/HCPCS: 73030 ==

== ENCOUNTER → 2021-08-03 13:09 | Outpatient (BNVA) | payer OTHER, SELFPAY | PROVIDERS: PCP Emergency Medicine Emergency Medical Services; Referring Provider Specialist; Visit Provider Specialist | DX: G56.23 Lesion of ulnar nerve, bilateral upper limbs (principal); Z87.891 Personal history of nicotine dependence | CPT/HCPCS: 95910 ==

== ENCOUNTER 2021-10-01 08:42 | Outpatient (CLI) | payer OTHER, SELFPAY ==
--- NOTE | 2021-10-01 08:51 | XR_ITS ---
WS: [id number] XR cervical spine 3V* [id number] REASON FOR EXAM: CERVICAL RADICULOPATHY;FACET ARTHROPLASTY;ARTHRODESIS FINDINGS: Since the previous examination of 03/08/2021, there is been placement of bilateral posterior pedicle s crews and rods from C2 to C5. Pre-existing anterior plate and screw fixation with interbody fusion device at C3-C4. Surgical appliances appear in proper position and alignment. Compared to the previous examination of 03/08/2021 there is now a significant anterior/inferior sublux ation of C5 on C6 with anterior contact of the C5 and C6 vertebral bodies obliterating the anterior d isc space with preserved disc space posteriorly. This creates a focal gibbus deformity at the C5-C6 i nterspace. XR/XR cervical spine 3V* [id number] IMPRESSION: Postsurgical cervical spine with interval change as above.
--- NOTE | 2021-10-01 08:51 | MR_ITS ---
WS: [id number] MRI CERVICAL SPINE NONCONTRAST HISTORY: CERVICAL Radiculopathy; facet Arthroplasty, arthrodesis COMPARISON: 03/08/2021 Technique: Multiplanar, multisequence noncontrast imaging of the cervical spine. Prior anterior cervical fusion at C3-4 with interbody spacer. Additional articular facet hardware not ed posteriorly from C2 through C4. There has been a progression of the focal kyphosis centered at C5- 6 since the prior study. Asymmetric disc space narrowing at C5-6. Marrow edema anterior C5 and C6 delma tebral bodies. There is increased T2 signal along the posterior cervical spine in the region of the f acet hardware. Small amount of fluid with increased T2 signal in the interspinous ligaments. There is slight deformity of the cord with mild increased T2 signal at C5-6 due to the focal kyphosis . New since the prior study. Anterior facet joint fusion is also new since 03/08/2021. Craniocervical junction, C1 and C2 relationship, odontoid process and soft tissues are normal. C2-C3: Mild disc bulging. Facet joint arthritis. No stenosis. Postsurgical changes are noted posterio rly. C3-C4: Diffuse osteophytic ridging. Postoperative changes posteriorly. No high-grade stenosis. Bilate ral moderate foraminal stenosis. Not significantly progressed. C4-C5: Significant artifact obscuring the cervical cord, the facet joints and foramina. Cannot commen t on foraminal stenosis due to the hardware artifact. C5-C6: Osteophytic ridging and a new focal central disc protrusion. Broad-based disc protrusion conta cts the ventral thecal sac with posterior displacement of the cord. Bilateral facet joint arthritis. Postsurgical changes and fluid at the surgical site. There is at least moderate central and foraminal stenosis. C6-C7: Mild annular disc bulging and osteophytic ridging. C7-T1: Normal. Paraspinal soft tissue are normal. MR/MR cervical spin wo con* [id number] IMPRESSION: 1. Quality of this examination is limited by technical difficulties. 2. Recent postsurgical facet joint fusion from C2 through C4 with postoperativ e changes along the surgical site. Edema in the paraspinal muscles and fluid po steriorly. No well formed collections. Differential includes postoperative sero ma, hematoma and abscess cannot be excluded. 3. No focal kyphosis centered at C5-6 with osteophytes and disc protrusions co ntacting and posteriorly displacing the cervical cord. There is at least modera te central and foraminal stenosis. 4. Anterior cervical fusion with interbody spacer at C3-4 unchanged. 5. Suspect mild myelomalacia at the C5-6 level. 6. Asymmetric disc space narrowing at C5-6 is new.
== END 2021-10-01 08:43 | disposition home or self-care (01) ==
PROVIDERS: PCP Emergency Medicine Emergency Medical Services; Visit Provider Surgery
DX: M54.12 Radiculopathy, cervical region (principal); M47.812 Spondylosis without myelopathy or radiculopathy, cervical region; Z98.1 Arthrodesis status; Z98.890 Other specified postprocedural states; M43.22 Fusion of spine, cervical region
CPT/HCPCS: 72040; 72141

== ENCOUNTER → 2021-10-13 13:53 | Outpatient (BNVA) | payer OTHER, SELFPAY | PROVIDERS: PCP Emergency Medicine Emergency Medical Services; Visit Provider Specialist | DX: Z47.1 Aftercare following joint replacement surgery (principal); Z96.611 Presence of right artificial shoulder joint | CPT/HCPCS: 73030 ==

== ENCOUNTER 2022-03-10 05:53 | Emergency (ER) | payer OTHER, MEDICARE, SELFPAY ==
--- NOTE | 2022-03-10 05:57 | XRR_ITS ---
PROCEDURE INFORMATION: Exam: XR Left Foot Exam date and time: 03/10/2022 6:04 AM Age: 66 years old Clinical indication: Injury or trauma; Other: Something landed on foot; Blunt trauma; Left; Injury date: Yesterday; Injury details: PT had a smootie maker lid fall onto foot teeth part went into big toe, big toe pain; Prior surgery; Surgery date: 6+ months; Surgery type: Ankle replacment; Additional info: Pain/fall TECHNIQUE: Imaging protocol: Radiologic exam of the Left foot. Views: 3 or more views. AP Oblique Lateral COMPARISON: No relevant prior studies available. FINDINGS: Bones/joints: There is normal alignment without fractures or dislocations. Moderate toe interphalangeal joint, moderate to severe 1st metatarsophalangeal joint, [id number] mid tarsal joint and moderate to severe subtalar joint space narrowing is seen, suggestive of osteoarthritic change. Postsurgical changes of the ankle region are seen with distal tibial and talar dome metallic hardware. Sclerotic changes of the mid to posterior tibia and upper calcaneus regions are seen. Comparison with prior outside imaging would be helpful for complete assessment. Tiny plantar calcaneal spur is seen. Soft tissues: There is no radiographic soft tissue swelling. There are no radiopaque foreign bodies. Notes: If there is further concern, recommend follow-up radiographs or MRI for complete assessment. XR/XR foot LT min 3V* [id number] IMPRESSION: No fractures or dislocation of the left foot. Postsurgical changes of the left ankle region, as noted above. Degenerative changes of the foot, as noted above.
[2022-03-10 06:02] VITALS: BP 136/70; PULSE 65; RESP 18; TEMP 36.8; O2SAT 97; BMI 26.8
--- NOTE | 2022-03-10 06:46 | W.ED.EXTPRO ---
HPI - Extremity Problem General: Chief complaint: Extremity Injury, Lower Stated complaint: L foot injury Time Seen by Provider: 03/10/22 05:54 Source: patient Mode of arrival: ambulatory Limitations: no limitations History of Present Illness: 66-year-old male presents emergency room with complaints of pain in the left great toe that began last evening after he dropped something on his toe he said the pain is severe overnight no other injuries. MD Complaint: joint pain Onset (ago): hour(s) Pain Consistency: constant Location: left and toe (Great) Quality: sharp Radiation: none Relieving factors: rest Exacerbating factors: weight bearing and walking Associated symptoms: Deny fever(s) or rash Review of Systems Const: Denies: fever(s) or chills Skin/Breast: Denies: rash or pruritus PFSH ED PFSH: Medical History Anxiety Back pain Depressive disorder Diabetes Edema, peripheral Foraminal stenosis of cervical region Hypertension Neck pain New onset atrial fibrillation Shoulder pain, bilateral Surgical History Fusion of lumbar spine H/O shoulder surgery History of penile implant Hx of cervical spine surgery 04/2021- [place] Hx of cholecystectomy Status post cervical spinal fusion 07/18/2019 C3-C4 ACDFF Family History Other Cancer Paroxysmal A-fib Stroke Social History Alcohol intake: never Lives independently: Yes Household members: none Marital status: Current occupational status: retired and disabled History of recent travel: No Physical Exam Const: COMMON NORMALS: no acute distress GENERAL APPEARANCE: cooperative and comfortable ORIENTATION/CONSCIOUSNESS: Yes awake, Yes oriented to person, Yes oriented to place and Yes oriented to time Extremity: OTHER: Left great toe has had toenail removed and is healed there is no obvious deformities a few small abrasions are superficial there is no ecchymosis or bruising neurovascularly intact Neuro: SENSORIUM/ORIENTATION: Yes oriented to person, Yes oriented to place and Yes oriented to time Course Vital Signs: Vital signs: Vital Signs Temperature 98.2 F 03/10/22 06:02 Pulse Rate 65 03/10/22 06:02 Respiratory Rate 18 03/10/22 06:02 Blood Pressure 136/70 03/10/22 06:02 Pulse Oximetry 97 03/10/22 06:02 MDM - Extremity (Nontraumatic) Medical Decision Making Fracture at the base the proximal phalanx postop shoe and follow-up with podiatry Discharge Plan Discharge Patient Disposition: Home Clinical Impression: Toe fracture, left Condition: Stable Prescriptions: New diclofenac sodium 75 mg tablet,delayed release (DR/EC) 75 mg PO Q12H PRN (Reason: pain) Qty: 14 0RF No Action (DME) ASO ankle brace Qty: 1 0RF Rx Instructions: As directed (DME) Custom Orthotics See Rx Instructions .Route .MEDSUPPLY Qty: 1 0RF Rx Instructions: Orthotic with 5th metatarsal head offloading right foot. cyclobenzaprine 10 mg tablet 10 mg PO TID PRN (Reason: muscle spasm) 0RF magnesium oxide 400 mg magnesium capsule 400 mg PO DAILY 0RF pantoprazole 40 mg tablet,delayed release (DR/EC) 40 mg PO DAILY 0RF lactase 9,000 unit tablet 9,000 unit PO DAILY 0RF cetirizine [Zyrtec] 10 mg tablet 10 mg PO DAILY PRN (Reason: allergy symptoms) 0RF diphenhydramine HCl [Allergy (diphenhydramine)] 25 mg tablet 25 mg PO BID PRN (Reason: itching) 0RF triamcinolone acetonide [Children's Nasacort] 55 mcg aerosol,spray 1 spray INTRANASAL DAILY 0RF acyclovir [Zovirax] 5 % cream 1 applic TOPICAL DAILY PRN (Reason: Itching) 0RF duloxetine 60 mg capsule,delayed release(DR/EC) 60 mg PO DAILY Qty: 30 2RF spironolactone 25 mg tablet 25 mg PO DAILY Qty: 90 3RF amlodipine 5 mg tablet 5 mg PO DAILY Qty: 90 3RF torsemide 20 mg tablet 20 mg PO DAILY Qty: 90 3RF sotalol 80 mg tablet 80 mg PO DIRECTED Qty: 180 2RF Rx Instructions: take 1 tab every morning and 1/2 tab every evening potassium chloride 20 mEq tablet extended release 20 meq PO DAILY Qty: 90 1RF celecoxib 200 mg capsule See Rx Instructions .ROUTE .COMPLEX Qty: 30 0RF Dose Instruction: TAKE ONE CAPSULE BY MOUTH ONCE A DAY FOR PAIN - TAKE WITH FOOD Rx Instructions: TAKE ONE CAPSULE BY MOUTH ONCE A DAY FOR PAIN - TAKE WITH FOOD mirtazapine 15 mg tablet 30 mg PO BEDTIME 0RF Eliquis 5 mg Tablet 5 mg PO BID 0RF clotrimazole 10 mg [place] 10 mg MUCOUS MEMBRANE 5XD 0RF hydrocodone-acetaminophen 5-325 mg tablet 1 tab PO QID 0RF hydroxyzine HCl 25 mg Tablet 25 mg PO TID PRN (Reason: UNKNOWN) 0RF azelastine 137 mcg (0.1 %) Aerosol,[place] 2 spray INTRANASAL BID 0RF fluticasone propionate 50 mcg/actuation [place],Suspension 2 spray INTRANASAL DAILY 0RF multivitamin with iron-mineral Tablet 1 tab PO DAILY 0RF tamsulosin 0.4 mg Capsule 0.4 mg PO DAILY 0RF gabapentin 100 mg Capsule 100 mg PO TID 0RF ondansetron 4 mg tablet,disintegrating 4 mg PO Q8H PRN (Reason: Nausea) 0RF Discharge Orders: Discharge ED (Routine); Ordered 03/10/22 Ordered By: Shahram Walker Referrals: Chau Holloway DO [Primary Care Provider] - Patient Instructions: Opioid Safety Activity Restrictions/Additional Instructions: Case management will make a follow up appointment with podiatry. Coding Level of Care Code ED Systems Navigator for Leonila Aparicio
--- NOTE | 2022-03-15 08:14 | DCPLANNER ---
Addendum entered by Lashae Claudio 03/23/22 12:38: customer service manager was sent the following message from ortho regarding referral: Pt states he does not currently have transportation and will call back if his fx gets worse. Original Note: customer service manager had message to schedule a follow up appointment for patient with ortho. customer service manager sent patients information to the front office of ortho. Patients information will be printed and reviewed. Clinic will call patient with appointment information.
== END 2022-03-10 07:00 | disposition home or self-care (01) ==
PROVIDERS: Emergency Provider Family Medicine; PCP Emergency Medicine Emergency Medical Services
DX: S92.415A Nondisplaced fracture of proximal phalanx of left great toe, initial encounter for closed fracture (principal); W20.8XXA Other cause of strike by thrown, projected or falling object, initial encounter; Z79.01 Long term (current) use of anticoagulants; E11.9 Type 2 diabetes mellitus without complications; I10 Essential (primary) hypertension
CPT/HCPCS: 73630; 99283; L3260

== ENCOUNTER 2022-07-04 09:18 | Emergency (ER) | payer OTHER, MEDICARE, SELFPAY ==
[2022-07-04 09:34] VITALS: BP 154/77; PULSE 70; RESP 16; TEMP 36.6; O2SAT 99
--- NOTE | 2022-07-04 09:50 | CTR_ITS ---
PROCEDURE INFORMATION: Exam: CT Cervical Spine Without Contrast Exam date and time: 07/04/2022 10:18 AM Age: 66 years old Clinical indication: Injury or trauma; Fall; Blunt trauma; Prior surgery; Surgery date: 6+ months; Surgery type: Cervical spine; Additional info: Fall with neck pain TECHNIQUE: Imaging protocol: Computed tomography of the cervical spine without contrast. Radiation optimization: All CT scans at this facility use at least one of these dose optimization techniques: automated exposure control; mA and/or kV adjustment per patient size (includes targeted exams where dose is matched to clinical indication); or iterative reconstruction. COMPARISON: MR cervical spin wo con* [id number] 10/01/2021 9:30 AM RADIATION DOSE METRICS: Total DLP (mGy-cm): 219.2 FINDINGS: Bones/joints: Anterior cervical spinal fixation hardware with intervertebral disc spacer at C3-C4. Posterior spinal fixation hardware extending from C2 to T1. The cervical spine demonstrates a straightened lordotic curvature. Mild grade 1 anterolisthesis of C5 on C6 by approximately 3 mm. The vertebral bodies maintain normal height. No fracture identified. The [place] intervertebral discs maintain normal height. Multilevel neural foraminal narrowing Lungs: The visualized lung apices are normal. Azygous fissure noted. Soft tissues: No prevertebral soft tissue swelling identified. CT/CT cervical spin wo con* [id number] IMPRESSION: 1. No acute fracture or traumatic malalignment identified within the cervical spine. 2. Spinal fixation hardware appears intact.
--- NOTE | 2022-07-04 09:50 | CTR_ITS ---
PROCEDURE INFORMATION: Exam: CT Thoracic Spine Without Contrast Exam date and time: 07/04/2022 10:18 AM Age: 66 years old Clinical indication: Injury or trauma; Fall; Blunt trauma (contusions or hematomas); Prior surgery; Additional info: Fall with mid back pain TECHNIQUE: Imaging protocol: Computed tomography of the thoracic spine without contrast. Radiation optimization: All CT scans at this facility use at least one of these dose optimization techniques: automated exposure control; mA and/or kV adjustment per patient size (includes targeted exams where dose is matched to clinical indication); or iterative reconstruction. COMPARISON: MR cervical spin wo con* [id number] 10/01/2021 9:30 AM RADIATION DOSE METRICS: Total DLP (mGy-cm): 912.2 FINDINGS: Bones/joints: Fixation is incompletely seen extending and including T1. There is no fracture, dislocation or subluxation. There is no evidence of a disc protrusion, disc extrusion or abnormal foraminal narrowing. There is a healing fracture of the 12th left posterior rib. Soft tissues: Unremarkable. Lungs: Pleural calcifications and/or possible postoperative changes are seen involving the inferior left lung which needs clinical correlation. Adrenal glands: There is a nodule noted involving the left adrenal gland 11 by 13 mm. This has Hounsfield units of-7 consistent with an adenoma and is completely imaged. Other findings: There is anterolateral spurring to the right. CT/CT thoracic spin wo con* [id number] IMPRESSION: 1. No acute abnormality within the dorsal spine. 2. Healing left posterior rib fracture. 3. Adrenal adenoma.
--- NOTE | 2022-07-04 09:50 | CTR_ITS ---
PROCEDURE INFORMATION: Exam: CT Head Without Contrast Exam date and time: 07/04/2022 10:25 AM Age: 66 years old Clinical indication: Injury or trauma; Fall; Blunt trauma (contusions or hematomas); Additional info: Fall and hit head. Denies loc TECHNIQUE: Imaging protocol: Computed tomography of the head without contrast. Radiation optimization: All CT scans at this facility use at least one of these dose optimization techniques: automated exposure control; mA and/or kV adjustment per patient size (includes targeted exams where dose is matched to clinical indication); or iterative reconstruction. COMPARISON: CT head wo con* [id number] 09/30/2015 5:12 PM RADIATION DOSE METRICS: Total DLP (mGy-cm): 1168.71 FINDINGS: Brain: No acute hemorrhage identified. No large territorial areas of hypoattenuation concerning for ischemic infarct identified. No intracranial mass effect. Cerebral ventricles: The ventricles are within normal limits. Paranasal sinuses: Mucosal thickening in the ethmoid air cells and sphenoid sinuses. Mastoid air cells: The visualized mastoid air cells are well aerated. Bones/joints: The osseous structures are intact. Soft tissues: Unremarkable. CT/CT head wo con* [id number] IMPRESSION: 1. No acute intracranial abnormality identified. 2. Mild paranasal sinus disease.
--- NOTE | 2022-07-04 09:50 | XR_ITS ---
WS: [id number] Right wrist, 3 views, 07/04/2022 Clinical Data: fall with wrist pain Comparison: Right hand, 04/14/2020 Findings: No fractures or dislocations are seen. The carpal bones are intact. There is no soft tissue swelling. The distal radius and ulna are not remarkable. XR/XR wrist RT min 3V* [id number] Impression: Negative right wrist.
--- NOTE | 2022-07-04 09:52 | ED_ITS ---
HPI - Fall General: Chief Complaint: Fall Stated Complaint: Fall, left wrist injury Time Seen by Provider: 07/04/22 09:40 History of Present Illness: Patient is a 66-year-old male comes to the ED after a fall. Injury occurred yesterday at around 5 PM. Patient was outside and his great [employer] dog ran and hit the back of his legs causing him to fall down onto gravel. He endorses hitting his head but denies any loss of consciousness. Since fall he is having right wrist pain, neck pain and mid back pain. Patient just started taking Eliquis within the last 24 hours. He rates his pain currently a 7 out of 10. His right wrist is very painful and that he is unable to move wrist due to pain. He has a superficial abrasion to his left knee. Patient has had his tetanus within the last 5 years. Denies any vision changes, numbness tingling 1 side of face or body or any weakness to 1 side of face or body. Associated symptoms-after fall: Reports neck pain; Denies abdominal pain, chest pain, headache(s) or hematuria Review of Systems Const: Denies: fever(s), chills or fatigue Eyes: Denies: change in vision or eye discomfort ENMT: Denies: throat pain, odynophagia, nasal discharge or nasal congestion Card: Denies: chest pain, palpitations, edema, swelling of feet/ankles, dyspnea on exertion or orthopnea Resp: Denies: dyspnea, productive cough or non-productive cough GI: Denies: abdominal pain, nausea, vomiting, diarrhea, constipation or hematochezia : Denies: flank pain, difficulty urinating, dysuria or hematuria Musc: Reports: neck pain, back pain and extremity pain (Right wrist); Denies: extremity swelling Skin/Breast: Reports: new lesions (Abrasion to left knee); Denies: rash Neuro: Denies: headache(s), numbness in extremities or weakness in extremities PFSH ED PFSH: Medical History Anxiety Back pain Depressive disorder Diabetes Edema, peripheral Foraminal stenosis of cervical region Hypertension Neck pain New onset atrial fibrillation Shoulder pain, bilateral Surgical History Fusion of lumbar spine H/O shoulder surgery History of penile implant Hx of cervical spine surgery 04/2021- [place] Hx of cholecystectomy Status post cervical spinal fusion 07/18/2019 C3-C4 ACDFF Family History Other Cancer Paroxysmal A-fib Stroke Social History Alcohol intake: never Lives independently: Yes Household members: none Marital status: Current occupational status: retired and disabled History of recent travel: No Physical Exam Const: COMMON NORMALS: no acute distress, patient oriented x3 and alert GENERAL APPEARANCE: cooperative and comfortable HENMT: COMMON NORMALS: normocephalic and atraumatic HEAD & SCALP: normocephalic and atraumatic; no Smith's sign and no raccoon eyes MOUTH: Normal oral and palatal mucosa present THROAT: posterior oropharynx normal and uvula midline Eye: COMMON NORMALS: Equal, round and reactive pupils present and EOMs intact bilaterally GENERAL EYE: appearance normal, both eyes and all related structures PUPIL: Yes Equal, round and reactive pupils present Neck/C-Spine: COMMON NORMALS: supple GENERAL: Yes normal visual inspection CERVICAL SPINE: Yes Cervical spine tenderness, Yes Paracervical muscle tenderness and Yes collar present Lymph: LYMPHATIC: no lymphadenopathy noted Resp: COMMON NORMALS: normal respiratory effort, No retractions, No use of accessory muscles and clear to auscultation bilaterally AUSCULTATION: clear to auscultation bilaterally Cardio: COMMON NORMALS: regular rate, regular rhythm, S1 normal heart sound present, S2 normal heart sound present, No gallops present (Cardio), No clicks present (Cardio), No murmurs present (Cardio) and Peripheral pulses 2+ throughout RATE: regular rate RHYTHM: regular rhythm HEART SOUNDS: S1 normal heart sound present and S2 normal heart sound present PERIPHERAL PULSES: Peripheral pulses 2+ throughout GI: COMMON NORMALS: Normal to inspection, nondistended, normoactive bowel sounds present, Soft to palpation, non-tender and no masses PALPATION: Yes Soft to palpation : COMMON NORMALS: Yes no CVA tenderness BLADDER/KIDNEY EXAM: Yes no CVA tenderness Back/Pelvis: COMMON NORMALS: no CVA tenderness THORACIC SPINE/UPPER BACK: Yes pain with ROM, Yes thoracic spinal tenderness and Yes paraspinal muscle tenderness Extremity: GENERAL: Yes normal exam except as noted RIGHT UPPER EXTREMITY: Yes wrist Right wrist: Yes inspection (No visible deformity noted. Mild swelling noted.), Yes palpation (Tenderness over radial aspect of wrist), Yes ROM (Limited due to pain) and Yes neurovascular exam (Intact) Neuro: COMMON NORMALS: patient oriented x3, CN's II-XII intact bilaterally, moves all extremities, no focal motor deficits and no sensory deficits noted SENSORIUM/ORIENTATION: Yes alert SENSORY EXAM: Yes extremities (intact) MOTOR EXAM: 5/5 motor strength present throughout Skin: COMMON NORMALS: no rashes or lesions noted GENERAL SKIN EXAM: no rashes or lesions noted and dry skin Course Vital Signs: Vital signs: Vital Signs Temperature 97.8 F 07/04/22 12:23 Pulse Rate 70 07/04/22 12:23 Respiratory Rate 16 07/04/22 12:23 Blood Pressure 154/77 07/04/22 12:23 Pulse Oximetry 99 07/04/22 12:23 MDM - Fall Medical Decision Making Patient is a 66-year-old male who comes to the ED after fall. Patient is complaining of having right wrist pain, neck pain and upper back pain. Patient admits hitting head denies any loss of consciousness. He is on a blood thinner currently. Vitals are stable. Neuro exam is benign and shows no deficits. He does have some cervical and thoracic spinal tenderness along with paracervical muscle tenderness and thoracic paraspinal muscle tenderness as well. Right wrist showed limited range of motion with no deformity seen. Little bit of swelling and tenderness over radial aspect of wrist. Rest of exam is benign. CT of head showed no acute findings. CT of cervical spine and thoracic spine showed no acute findings. Right wrist x-ray showed no acute fractures or findings. Patient was diagnosed with fall with no significant injury, right wrist sprain and back pain due to injury and was stable for discharge home. Patient was sent home with a prescription for a muscle relaxer and a couple hydrocodone tablets for pain. Told to follow-up with his PCP within the next week for reevaluation. Patient understood and agreed with plan. Lab Data Radiology Impressions Cervical Spine CT 07/04/22 09:50 IMPRESSION: 1. No acute fracture or traumatic malalignment identified within the cervical spine. 2. Spinal fixation hardware appears intact. Head CT 07/04/22 09:50 IMPRESSION: 1. No acute intracranial abnormality identified. 2. Mild paranasal sinus disease. Thoracic Spine CT 07/04/22 09:50 IMPRESSION: 1. No acute abnormality within the dorsal spine. 2. Healing left posterior rib fracture. 3. Adrenal adenoma. Wrist X-Ray 07/04/22 09:50 Impression: Negative right wrist. Discharge Plan Discharge Patient Disposition: Home Clinical Impression: Back pain due to injury Fall with no significant injury Qualifiers: Encounter type: initial encounter Qualified Code(s): W19.XXXA - Unspecified fall, initial encounter Right wrist sprain Qualifiers: Encounter type: initial encounter Qualified Code(s): S63.501A - Unspecified sprain of right wrist, initial encounter Condition: Stable Prescriptions: New methocarbamol 750 mg tablet 750 mg PO Q8H PRN (Reason: Muscle spasms and pain) Qty: 20 0RF No Action (DME) ASO ankle brace Qty: 1 0RF Rx Instructions: As directed (DME) Custom Orthotics See Rx Instructions .Route .MEDSUPPLY Qty: 1 0RF Rx Instructions: Orthotic with 5th metatarsal head offloading right foot. cyclobenzaprine 10 mg tablet 10 mg PO TID PRN (Reason: muscle spasm) magnesium oxide 400 mg magnesium capsule 400 mg PO DAILY pantoprazole 40 mg tablet,delayed release (DR/EC) 40 mg PO DAILY lactase 9,000 unit tablet 9,000 unit PO DAILY cetirizine [Zyrtec] 10 mg tablet 10 mg PO DAILY PRN (Reason: allergy symptoms) diphenhydramine HCl [Allergy (diphenhydramine)] 25 mg tablet 25 mg PO BID PRN (Reason: itching) triamcinolone acetonide [Children's Nasacort] 55 mcg aerosol,spray 1 spray INTRANASAL DAILY acyclovir [Zovirax] 5 % cream 1 applic TOPICAL DAILY PRN (Reason: Itching) duloxetine 60 mg capsule,delayed release(DR/EC) 60 mg PO DAILY Qty: 30 2RF spironolactone 25 mg tablet 25 mg PO DAILY Qty: 90 3RF amlodipine 5 mg tablet 5 mg PO DAILY Qty: 90 3RF torsemide 20 mg tablet 20 mg PO DAILY Qty: 90 3RF sotalol 80 mg tablet 80 mg PO DIRECTED Qty: 180 2RF Rx Instructions: take 1 tab every morning and 1/2 tab every evening potassium chloride 20 mEq tablet extended release 20 meq PO DAILY Qty: 90 1RF celecoxib 200 mg capsule See Rx Instructions .ROUTE .COMPLEX Qty: 30 0RF Dose Instruction: TAKE ONE CAPSULE BY MOUTH ONCE A DAY FOR PAIN - TAKE WITH FOOD Rx Instructions: TAKE ONE CAPSULE BY MOUTH ONCE A DAY FOR PAIN - TAKE WITH FOOD mirtazapine 15 mg tablet 30 mg PO BEDTIME Eliquis 5 mg Tablet 5 mg PO BID clotrimazole 10 mg [place] 10 mg MUCOUS MEMBRANE 5XD hydrocodone-acetaminophen 5-325 mg tablet 1 tab PO QID hydroxyzine HCl 25 mg Tablet 25 mg PO TID PRN (Reason: UNKNOWN) azelastine 137 mcg (0.1 %) Aerosol,[place] 2 spray INTRANASAL BID fluticasone propionate 50 mcg/actuation [place],Suspension 2 spray INTRANASAL DAILY multivitamin with iron-mineral Tablet 1 tab PO DAILY tamsulosin 0.4 mg Capsule 0.4 mg PO DAILY gabapentin 100 mg Capsule 100 mg PO TID ondansetron 4 mg tablet,disintegrating 4 mg PO Q8H PRN (Reason: Nausea) diclofenac sodium 75 mg tablet,delayed release (DR/EC) 75 mg PO Q12H PRN (Reason: pain) Qty: 14 0RF Discharge Orders: Discharge ED (Routine); Ordered 07/04/22 Ordered By: Lazaro Caraballo Referrals: Chau Holloway, [Primary Care Provider] - Discharge Diet: Regular Discharge Activity: Increase activity as tolerated Patient Instructions: Wrist Sprain (ED) Activity Restrictions/Additional Instructions: Follow-up with medical provider as directed in the next 7 to 10 days for reevaluation. Take medications as prescribed. Return to the ER or your medical provider if condition worsens. Please read and understand discharge instructions. Thank you for choosing [facility] for your healthcare needs today. Please realize this is an emergency room and that we are providing you with a medical screening exam and this may not be complete and all inclusive of all the testing and or work up that you may need to determine your ailment or severity of your illness. It is very important that you follow up as instructed or that you return to the Emergency Department should you have concerns or if your condition changes or worsens in any way. Coding Level of Care Code ED Management Department Chair for Leonila Aparicio
[2022-07-04] MEDS: morphine 4 mg/mL SDV 1 mL IM (10:10)
[2022-07-04 10:38] VITALS: BP 154/77; PULSE 70; RESP 16; TEMP 36.6; O2SAT 99
[2022-07-04 12:23] VITALS: BP 154/77; PULSE 70; RESP 16; TEMP 36.6; O2SAT 99
== END 2022-07-04 12:24 | disposition home or self-care (01) ==
PROVIDERS: Emergency Provider Physician Assistant; PCP Emergency Medicine Emergency Medical Services
DX: S63.501A Unspecified sprain of right wrist, initial encounter (principal); M54.6 Pain in thoracic spine; Z79.01 Long term (current) use of anticoagulants; E11.9 Type 2 diabetes mellitus without complications; I10 Essential (primary) hypertension; W54.1XXA Struck by dog, initial encounter
CPT/HCPCS: 70450; 72125; 72128; 73110; 96372; 99285; J2270

== ENCOUNTER 2022-07-06 08:50 | Outpatient (CLI) | payer OTHER, SELFPAY ==
--- NOTE | 2022-07-06 08:57 | USCV_ITS ---
Kenneth Barry Age: 66 Gender: M : 1955 Exam Date: 07/06/2022 09:40 Ordering Phys: Chau Holloway DO Technologist: LIBRA [place] [facility] [place] AAA Screening HISTORY: Diameter (cm) AP x Transverse x Length Velocity (cm/s) Waveform Prox Aorta: 2.68 x 1.85 x 60.30 Triphasic Mid Aorta: 2.01 x 2.19 x 76.40 Triphasic Distal Aorta: 2.11 x 1.54 x 114.90 Triphasic Right Iliac Prox: 1.51 x 1.24 x 109.10 Triphasic Left Iliac Prox: 1.29 x 1.24 x 90.10 Triphasic Stent Prox Landing x x Aneurysmal Sac Max x x Lt Lat Sac Dim Rt Lat Sac Dim Stent Dist [place] x x Right Iliac Stent x x Left Iliac Stent x x Right Renal Art Left Renal Art FINDINGS: Comparison: none available. Ectatic abdominal aorta with evidence of atherosclerotic plaque noted. No evidence of abdominal aortic aneurysm. There is evidence of atherosclerotic plaque no significan stenosis in the right common iliac artery. There is evidence of atherosclerotic plaque no significan stenosis in the left common iliac artery. CONCLUSIONS No evidence of abdominal aortic or bilateral iliac aneurysm. Dr. Celi Li DO (Electronically Signed) Final Date: 06 July 2022 11:55 S
== END 2022-07-06 08:51 | disposition home or self-care (01) ==
LOC: RAD 08:51
PROVIDERS: PCP Emergency Medicine Emergency Medical Services; Visit Provider Emergency Medicine Emergency Medical Services
DX: Z13.6 Encounter for screening for cardiovascular disorders (principal)
CPT/HCPCS: 76706

== ENCOUNTER → 2022-07-26 15:55 | Outpatient (BNVA) | payer OTHER, SELFPAY | PROVIDERS: PCP Emergency Medicine Emergency Medical Services; Visit Provider Podiatrist Foot & Ankle Surgery | DX: Z96.661 Presence of right artificial ankle joint (principal); M25.571 Pain in right ankle and joints of right foot | CPT/HCPCS: 73610; 99214 ==

== ENCOUNTER 2022-10-02 15:33 | Emergency (ER) | payer OTHER, SELFPAY ==
[2022-10-02 15:38] VITALS: BP 144/78; PULSE 73; RESP 16; TEMP 37.2; O2SAT 95; BMI 24.5
--- NOTE | 2022-10-02 16:24 | ED_ITS ---
Documented by User: Alejandra Candelario PA-C 10/02/22 16:29 HPI - Wound/Laceration General: Chief Complaint: Wound/Laceration Stated Complaint: open wound, scrotum Time Seen by Provider: 10/02/22 16:10 Source: patient Mode of arrival: ambulatory Limitations: no limitations History of Present Illness: 66-year-old male presents to the ER today for a scrotum wound that opened up. Patient reports he had a penile implant done September 28. Patient reports he has had multiple issues with the surgery however last night he felt something wet between his legs. Patient reports when he checked he knows there was bleeding. There was a small area on his scrotum that appeared to have come open. Patient reports he was able to superglue it shut however when he woke up this morning there was more bleeding. He reports that this time it is open back up. As long as he has lying down or sitting the bleeding stops however when he gets up to move around or anything the bleeding begins again. Patient reports he has an appointment tomorrow with the surgeon. Patient reports no pain with urination or change in urinary habits. No fevers, nausea, or vomiting reported. Review of Systems General: Reports: 10 or more systems reviewed and unremarkable except in HPI and below PFSH ED PFSH: Medical History Anxiety Back pain Depressive disorder Diabetes Edema, peripheral Foraminal stenosis of cervical region Hypertension Neck pain New onset atrial fibrillation Shoulder pain, bilateral Surgical History Fusion of lumbar spine H/O shoulder surgery History of penile implant Hx of cervical spine surgery 04/2021- [place] Hx of cholecystectomy Status post cervical spinal fusion 07/18/2019 C3-C4 ACDFF Family History Other Cancer Paroxysmal A-fib Stroke Social History Alcohol intake: never Lives independently: Yes Household members: none Marital status: Current occupational status: retired and disabled History of recent travel: No Physical Exam Const: COMMON NORMALS: no acute distress, average body habitus, patient oriented x3, no limitations, healthy appearing, alert and well nourished Resp: COMMON NORMALS: normal respiratory effort EFFORT & INSPECTION: Yes able to speak in complete sentences Cardio: COMMON NORMALS: regular rate and regular rhythm RATE: regular rate RHYTHM: regular rhythm : OTHER: Patient has a surgical wound at the base of the penis on the scrotum and there appears to be a 1 cm wound dehiscence/opening in the middle of this surgical site. There is no active bleeding until patient pulls up on the penis or moves and then there is a small amount of bleeding noted. No signs of infection. No pus, no erythema. Patient has swelling in the left inguinal area. He reports a pump/bag was placed there however he thought initially it was much higher and it has moved down towards the scrotum. Back/Pelvis: COMMON NORMALS: thoraco-lumbar ROM normal Extremity: COMMON NORMALS: normal to inspection and full ROM Neuro: COMMON NORMALS: patient oriented x3 SENSORIUM/ORIENTATION: Yes alert Psych: COMMON NORMALS: mental status grossly normal, Normal thought process present and cooperative THOUGHT PROCESS: Normal thought process present Skin: NARRATIVE SKIN EXAM: See exam Course ED course: Patient presents for an open wound on his scrotum. He had a penile implant done on the first. Patient reports he noticed the wound opened up last night he tried superglue on it. The superglue held until sometime during the night when it opened back up. Patient reports the bleeding is controlled at this time until he moves around or moves the penis. He does have an appointment tomorrow with the surgeon. Vital Signs: Vital signs: Vital Signs Temperature 99.0 F 10/02/22 15:38 Pulse Rate 79 10/02/22 16:39 Respiratory Rate 16 10/02/22 16:39 Blood Pressure 132/68 10/02/22 16:39 Pulse Oximetry 95 10/02/22 15:38 MDM - Wound/Laceration Medical Decision Making Patient is noted to have a 1 cm opening at the base of the penis in the area of the incision. This appears to be a wound dehiscence/suture that has fallen out or not taken. There is no active bleeding until patient manipulates the penis or moves around. There is then a small amount of bleeding noted however no gushing or active bleed. No signs of infection or redness noted. We did place 4 Steri-Strips across that area to close the opening. I discussed this patient with Dr. Green who agreed with the Steri-Strip placement follow-up tomorrow with surgeon. Advised patient to take it easy tonight and stay off his feet. If bleeding begins again hold pressure and apply another Steri-Strip. Follow-up tomorrow with specialist. Patient verbalized understanding and was in agreement with the treatment plan. Critical Care Time Critical Care Time: Critical Care Time: No Discharge Plan Discharge Patient Disposition: Home Clinical Impression: Wound, open Condition: Stable Prescriptions: No Action (DME) ASO ankle brace Qty: 1 0RF Rx Instructions: As directed cyclobenzaprine 10 mg tablet 10 mg PO TID PRN (Reason: muscle spasm) magnesium oxide 400 mg magnesium capsule 400 mg PO DAILY pantoprazole 40 mg tablet,delayed release (DR/EC) 40 mg PO DAILY lactase 9,000 unit tablet 9,000 unit PO DAILY cetirizine [Zyrtec] 10 mg tablet 10 mg PO DAILY PRN (Reason: allergy symptoms) diphenhydramine HCl [Allergy (diphenhydramine)] 25 mg tablet 25 mg PO BID PRN (Reason: itching) triamcinolone acetonide [Children's Nasacort] 55 mcg aerosol,spray 1 spray INTRANASAL DAILY acyclovir [Zovirax] 5 % cream 1 applic TOPICAL DAILY PRN (Reason: Itching) (DME) Orthopedic Shoes See Rx Instructions .Route .MEDSUPPLY Qty: 1 0RF Rx Instructions: As directed duloxetine 60 mg capsule,delayed release(DR/EC) 60 mg PO DAILY Qty: 30 2RF spironolactone 25 mg tablet 25 mg PO DAILY Qty: 90 3RF amlodipine 5 mg tablet 5 mg PO DAILY Qty: 90 3RF torsemide 20 mg tablet 20 mg PO DAILY Qty: 90 3RF sotalol 80 mg tablet 80 mg PO DIRECTED Qty: 180 2RF Rx Instructions: take 1 tab every morning and 1/2 tab every evening potassium chloride 20 mEq tablet extended release 20 meq PO DAILY Qty: 90 1RF celecoxib 200 mg capsule See Rx Instructions .ROUTE .COMPLEX Qty: 30 0RF Dose Instruction: TAKE ONE CAPSULE BY MOUTH ONCE A DAY FOR PAIN - TAKE WITH FOOD Rx Instructions: TAKE ONE CAPSULE BY MOUTH ONCE A DAY FOR PAIN - TAKE WITH FOOD (DME) Custom Orthotics with 5th metatarsal head offloading right foot and Orthopedic Shoes See Rx Instructions .Route .MEDSUPPLY Qty: 1 0RF Rx Instructions: Directed by [employer] [facility] [employer] [facility] mirtazapine 15 mg tablet 30 mg PO BEDTIME Eliquis 5 mg Tablet 5 mg PO BID clotrimazole 10 mg [place] 10 mg MUCOUS MEMBRANE 5XD hydrocodone-acetaminophen 5-325 mg tablet 1 tab PO QID hydroxyzine HCl 25 mg Tablet 25 mg PO TID PRN (Reason: UNKNOWN) azelastine 137 mcg (0.1 %) Aerosol,Withams 2 spray INTRANASAL BID fluticasone propionate 50 mcg/actuation Withams,Suspension 2 spray INTRANASAL DAILY multivitamin with iron-mineral Tablet 1 tab PO DAILY tamsulosin 0.4 mg Capsule 0.4 mg PO DAILY gabapentin 100 mg Capsule 100 mg PO TID ondansetron 4 mg tablet,disintegrating 4 mg PO Q8H PRN (Reason: Nausea) diclofenac sodium 75 mg tablet,delayed release (DR/EC) 75 mg PO Q12H PRN (Reason: pain) Qty: 14 0RF methocarbamol 750 mg tablet 750 mg PO Q8H PRN (Reason: Muscle spasms and pain) Qty: 20 0RF Discharge Orders: Discharge ED (Routine); Ordered 10/02/22 Ordered By: Alejandra Candelario Referrals: Chau Holloway DO [Primary Care Provider] - Discharge Diet: Usual diet Discharge Activity: Limit activity as instructed Patient Instructions: Opioid Safety, Pain Management Activity Restrictions/Additional Instructions: Rest recommended. If bleeding begins, applied pressure and placed Steri-Strip. Follow-up with urologist/surgeon tomorrow at scheduled appointment. Coding Level of Care Code ED Gummed Tape Press Operator for Chg Fwd Exam Detailed Documented by User: Shahram Walker DO 10/02/22 16:46 HPI - Wound/Laceration General: Chief Complaint: Wound/Laceration Stated Complaint: open wound, scrotum Time Seen by Provider: 10/02/22 16:10 PFSH ED PFSH: Medical History Anxiety Back pain Depressive disorder Diabetes Edema, peripheral Foraminal stenosis of cervical region Hypertension Neck pain New onset atrial fibrillation Shoulder pain, bilateral Surgical History Fusion of lumbar spine H/O shoulder surgery History of penile implant Hx of cervical spine surgery 04/[facility] Hx of cholecystectomy Status post cervical spinal fusion 07/18/2019 C3-C4 ACDFF Family History Other Cancer Paroxysmal A-fib Stroke Social History Alcohol intake: never Lives independently: Yes Household members: none Marital status: Current occupational status: retired and disabled History of recent travel: No Course Vital Signs: Vital signs: Vital Signs Temperature 99.0 F 10/02/22 15:38 Pulse Rate 79 10/02/22 16:39 Respiratory Rate 16 10/02/22 16:39 Blood Pressure 132/68 10/02/22 16:39 Pulse Oximetry 95 10/02/22 15:38 MDM - Wound/Laceration Medical Decision Making Patient is noted to have a 1 cm opening at the base of the penis in the area of the incision. This appears to be a wound dehiscence/suture that has fallen out or not taken. There is no active bleeding until patient manipulates the penis or moves around. There is then a small amount of bleeding noted however no gushing or active bleed. No signs of infection or redness noted. We did place 4 Steri-Strips across that area to close the opening. I discussed this patient with Dr. Green who agreed with the Steri-Strip placement follow-up tomorrow with surgeon. Advised patient to take it easy tonight and stay off his feet. If bleeding begins again hold pressure and apply another Steri-Strip. Follow-up tomorrow with specialist. Patient verbalized understanding and was in agreement with the treatment plan. Chart reviewed and patient discussed with midlevel. Agree with assessment and plan. Discharge Plan Discharge Patient Disposition: Home Clinical Impression: Wound, open Condition: Stable Prescriptions: No Action (DME) ASO ankle brace Qty: 1 0RF Rx Instructions: As directed cyclobenzaprine 10 mg tablet 10 mg PO TID PRN (Reason: muscle spasm) magnesium oxide 400 mg magnesium capsule 400 mg PO DAILY pantoprazole 40 mg tablet,delayed release (DR/EC) 40 mg PO DAILY lactase 9,000 unit tablet 9,000 unit PO DAILY cetirizine [Zyrtec] 10 mg tablet 10 mg PO DAILY PRN (Reason: allergy symptoms) diphenhydramine HCl [Allergy (diphenhydramine)] 25 mg tablet 25 mg PO BID PRN (Reason: itching) triamcinolone acetonide [Children's Nasacort] 55 mcg aerosol,spray 1 spray INTRANASAL DAILY acyclovir [Zovirax] 5 % cream 1 applic TOPICAL DAILY PRN (Reason: Itching) (DME) Orthopedic Shoes See Rx Instructions .Route .MEDSUPPLY Qty: 1 0RF Rx Instructions: As directed duloxetine 60 mg capsule,delayed release(DR/EC) 60 mg PO DAILY Qty: 30 2RF spironolactone 25 mg tablet 25 mg PO DAILY Qty: 90 3RF amlodipine 5 mg tablet 5 mg PO DAILY Qty: 90 3RF torsemide 20 mg tablet 20 mg PO DAILY Qty: 90 3RF sotalol 80 mg tablet 80 mg PO DIRECTED Qty: 180 2RF Rx Instructions: take 1 tab every morning and 1/2 tab every evening potassium chloride 20 mEq tablet extended release 20 meq PO DAILY Qty: 90 1RF celecoxib 200 mg capsule See Rx Instructions .ROUTE .COMPLEX Qty: 30 0RF Dose Instruction: TAKE ONE CAPSULE BY MOUTH ONCE A DAY FOR PAIN - TAKE WITH FOOD Rx Instructions: TAKE ONE CAPSULE BY MOUTH ONCE A DAY FOR PAIN - TAKE WITH FOOD (DME) Custom Orthotics with 5th metatarsal head offloading right foot and Orthopedic Shoes See Rx Instructions .Route .MEDSUPPLY Qty: 1 0RF Rx Instructions: Directed by [employer] [facility] [employer] [facility] mirtazapine 15 mg tablet 30 mg PO BEDTIME Eliquis 5 mg Tablet 5 mg PO BID clotrimazole 10 mg [place] 10 mg MUCOUS MEMBRANE 5XD hydrocodone-acetaminophen 5-325 mg tablet 1 tab PO QID hydroxyzine HCl 25 mg Tablet 25 mg PO TID PRN (Reason: UNKNOWN) azelastine 137 mcg (0.1 %) Aerosol,Withams 2 spray INTRANASAL BID fluticasone propionate 50 mcg/actuation Withams,Suspension 2 spray INTRANASAL DAILY multivitamin with iron-mineral Tablet 1 tab PO DAILY tamsulosin 0.4 mg Capsule 0.4 mg PO DAILY gabapentin 100 mg Capsule 100 mg PO TID ondansetron 4 mg tablet,disintegrating 4 mg PO Q8H PRN (Reason: Nausea) diclofenac sodium 75 mg tablet,delayed release (DR/EC) 75 mg PO Q12H PRN (Reason: pain) Qty: 14 0RF methocarbamol 750 mg tablet 750 mg PO Q8H PRN (Reason: Muscle spasms and pain) Qty: 20 0RF Discharge Orders: Discharge ED (Routine); Ordered 10/02/22 Ordered By: Alejandra Candelario Referrals: Chau Holloway, [Primary Care Provider] - Discharge Diet: Usual diet Discharge Activity: Limit activity as instructed Patient Instructions: Opioid Safety, Pain Management Activity Restrictions/Additional Instructions: Rest recommended. If bleeding begins, applied pressure and placed Steri-Strip. Follow-up with urologist/surgeon tomorrow at scheduled appointment. Coding Level of Care Code ED Gummed Tape Press Operator for Chg Fwd Exam Detailed
[2022-10-02 16:39] VITALS: BP 132/68; PULSE 79; RESP 16
== END 2022-10-02 16:41 | disposition home or self-care (01) ==
PROVIDERS: Emergency Provider Physician Assistant; PCP Emergency Medicine Emergency Medical Services
DX: T81.31XA Disruption of external operation (surgical) wound, not elsewhere classified, initial encounter (principal); Z79.01 Long term (current) use of anticoagulants; E11.9 Type 2 diabetes mellitus without complications; I10 Essential (primary) hypertension; Y83.1 Surgical operation with implant of artificial internal device as the cause of abnormal reaction of the patient, or of later complication, without mention of misadventure at the time of the procedure
CPT/HCPCS: 99282

== ENCOUNTER 2022-11-28 18:49 | Emergency (ER) | payer OTHER, SELFPAY ==
--- NOTE | 2022-11-28 18:56 | XRR_ITS ---
PROCEDURE INFORMATION: Exam: XR Left Hip Exam date and time: 11/28/2022 8:10 PM Age: 67 years old Clinical indication: Pelvic pain; Additional info: Injury TECHNIQUE: Imaging protocol: Radiologic exam of the left hip. Views: 2 or 3 views hip with pelvis when performed. COMPARISON: CT abdomen pelvis w con* [id number] 10/12/2020 3:27 PM FINDINGS: Bones/joints: Partially imaged posterior spinal decompression and posterior fixation extending from the pelvis to the visualized upper lumbar spine and perhaps beyond. Intervertebral disc spacers are noted at L3-L4, L4-L5, and L5-S1. Minimal degenerative changes of the hip joints, with minimal marginal spurring along the superior acetabulum bilaterally. The femoral heads are contained within their respective acetabula. The osseous structures are intact. No evidence of acute fractures. Soft tissues: Metallic clips are seen overlying the pelvis. Metallic clips and objects overlying the penile region, compatible with penile prosthesis. Fecal matter and gases are present within the colon. Nonobstructive gas pattern. XR/XR hip LT 2-3V wo/w pel* [id number] IMPRESSION: 1. Mild degenerative changes. 2. No evidence of acute fractures or dislocation.
--- NOTE | 2022-11-28 18:56 | XRR_ITS ---
PROCEDURE INFORMATION: Exam: XR Lumbosacral Spine Exam date and time: 11/28/2022 8:13 PM Age: 67 years old Clinical indication: Low back pain; Prior surgery; Surgery date: 6+ months; Additional info: Injury TECHNIQUE: Imaging protocol: Radiologic exam of the lumbosacral spine. Views: 2 or 3 views. COMPARISON: CR (PELVIS, ) 11/28/2022 8:10 PM FINDINGS: Bones/joints: There are postoperative findings of posterior spinal decompression and posterior spinal fixation from L2-S1. Intervertebral disc spacers are seen at L3-L4, L4-L5, and L5-S1. The hardware appears grossly intact. No evidence of hardware failure or hardware fracture. Mild retrolisthesis of L2 on L3 and L3 on L4. Minimal levocurvature of the lumbar spine. Marginal osteophytes are seen along the lower thoracic and lumbar spine. Mild degenerative disc disease of the non instrumented levels with decreased disc space height. Multilevel facet arthropathy. Multilevel neural foraminal stenosis, worse at L4-L5 and L5-S1. The osseous structures are otherwise intact. No evidence of acute fractures.. Soft tissues: Metallic clips are seen in the rochelle hepatis. Metallic clips are seen overlying the pelvis. Scattered gas is and fecal matter in the colon. Nonobstructive gaseous pattern. Penile prosthesis is partially imaged. XR/XR lumbar spine 2-3V* [id number] IMPRESSION: 1. Postsurgical changes as detailed above. 2. Multilevel degenerative disc and joint disease as outlined. 3. No evidence of acute fracture in the lumbar spine.
[2022-11-28 18:58] VITALS: BP 177/94; PULSE 79; RESP 16; TEMP 36.5; O2SAT 97; BMI 24.4
--- NOTE | 2022-11-28 19:55 | W.ED.BACK ---
HPI - Back Pain/Injury General: Chief Complaint: Back Pain/Injury Stated Complaint: Back Injury and Left HIp Time Seen by Provider: 11/28/22 19:46 History of Present Illness: 67-year-old male patient was walking across the floor when his dog ran into him causing him to twist suddenly at around 3:00 this afternoon. Patient felt a pop in his low back on the left side. Since then patient's had persistent pain and discomfort. Patient is scheduled to see his orthopedic communicable disease specialist tomorrow and wanted to have x-rays done due to the persistent nature of the pain after the injury this afternoon. Patient is ambulatory with a cane. Patient appears nontoxic. Patient does appear in mild to moderate pain. Associated symptoms: Deny fever(s), nausea or vomiting Review of Systems General: Reports: 10 or more systems reviewed and unremarkable except in HPI and below Const: Denies: fever(s) Card: Denies: chest pain Resp: Denies: dyspnea GI: Denies: nausea or vomiting : Denies: difficulty urinating Musc: Reports: back pain Skin/Breast: Denies: rash PFSH ED PFSH: Medical History Anxiety Back pain Depressive disorder Diabetes Edema, peripheral Foraminal stenosis of cervical region Hypertension Neck pain New onset atrial fibrillation Shoulder pain, bilateral Surgical History Fusion of lumbar spine H/O shoulder surgery History of penile implant Hx of cervical spine surgery 04/2021- [place] Hx of cholecystectomy Status post cervical spinal fusion 07/18/2019 C3-C4 ACDFF Family History Other Cancer Paroxysmal A-fib Stroke Social History Alcohol intake: never Lives independently: Yes Household members: none Marital status: Current occupational status: retired and disabled Physical Exam Const: COMMON NORMALS: alert HENMT: COMMON NORMALS: normocephalic HEAD & SCALP: normocephalic MOUTH: Normal oral and palatal mucosa present Neck/C-Spine: COMMON NORMALS: full ROM Resp: COMMON NORMALS: normal respiratory effort and clear to auscultation bilaterally AUSCULTATION: clear to auscultation bilaterally Cardio: COMMON NORMALS: regular rate and regular rhythm RATE: regular rate RHYTHM: regular rhythm Back/Pelvis: LUMBAR SPINE/LOWER BACK: Yes paraspinal muscle tenderness Lumbar paraspinal muscle tenderness: left left lumbar paraspinal muscle tenderness: L5 Extremity: COMMON NORMALS: normal to inspection Neuro: SENSORIUM/ORIENTATION: Yes alert Skin: COMMON NORMALS: no rashes or lesions noted GENERAL SKIN EXAM: no rashes or lesions noted Course Vital Signs: Vital signs: Vital Signs Temperature 97.7 F 11/28/22 18:58 Pulse Rate 79 11/28/22 18:58 Respiratory Rate 16 11/28/22 18:58 Blood Pressure 177/94 11/28/22 18:58 Pulse Oximetry 97 11/28/22 18:58 Oxygen Delivery Me thod 11/28/22 18:58 MDM - Back Pain/Injury Medical Decision Making 67-year-old male patient comes in today for complaints of injury to the low back. Incident occurred this afternoon when a dog ran into him causing him to twist suddenly and feeling pain and a pop to his low back. Patient does have a history of spinal fusion to the lumbar and cervical neck. On exam patient has tenderness in the lower lumbar spine, left lower. Differential diagnosis includes but not limited to derangement of surgical hardware, fracture, strain, intervertebral disc disease, facet arthritis. X-rays noted no acute fracture. Patient has degenerative changes and surgical hardware all remains intact. Reviewed exam with patient with recommendations for treatment and follow-up. Patient reported understanding agreed to plan. Patient was given 15 mg of Toradol and 4 mg of morphine for his acute pain. Patient was discharged home to tablets of hydrocodone 7-1/2 mg and a prescription for some hydrocodone 5 mg. Patient will follow-up with primary care for further instruction or return to ER for new concerns. Discharge Plan Discharge Patient Disposition: Home Clinical Impression: Strain of lumbar region Condition: Stable Prescriptions: Changed hydrocodone-acetaminophen 5-325 mg tablet 1 tab PO Q6H PRN (Reason: Pain (Scale Score 7-10)) Qty: 10 0RF No Action (DME) ASO ankle brace Qty: 1 0RF Rx Instructions: As directed cyclobenzaprine 10 mg tablet 10 mg PO TID PRN (Reason: muscle spasm) magnesium oxide 400 mg magnesium capsule 400 mg PO DAILY pantoprazole 40 mg tablet,delayed release (DR/EC) 40 mg PO DAILY lactase 9,000 unit tablet 9,000 unit PO DAILY cetirizine [Zyrtec] 10 mg tablet 10 mg PO DAILY PRN (Reason: allergy symptoms) diphenhydramine HCl [Allergy (diphenhydramine)] 25 mg tablet 25 mg PO BID PRN (Reason: itching) triamcinolone acetonide [Children's Nasacort] 55 mcg aerosol,spray 1 spray INTRANASAL DAILY acyclovir [Zovirax] 5 % cream 1 applic TOPICAL DAILY PRN (Reason: Itching) (DME) Orthopedic Shoes See Rx Instructions .Route .MEDSUPPLY Qty: 1 0RF Rx Instructions: As directed duloxetine 60 mg capsule,delayed release(DR/EC) 60 mg PO DAILY Qty: 30 2RF spironolactone 25 mg tablet 25 mg PO DAILY Qty: 90 3RF amlodipine 5 mg tablet 5 mg PO DAILY Qty: 90 3RF torsemide 20 mg tablet 20 mg PO DAILY Qty: 90 3RF sotalol 80 mg tablet 80 mg PO DIRECTED Qty: 180 2RF Rx Instructions: take 1 tab every morning and 1/2 tab every evening potassium chloride 20 mEq tablet extended release 20 meq PO DAILY Qty: 90 1RF celecoxib 200 mg capsule See Rx Instructions .ROUTE .COMPLEX Qty: 30 0RF Dose Instruction: TAKE ONE CAPSULE BY MOUTH ONCE A DAY FOR PAIN - TAKE WITH FOOD Rx Instructions: TAKE ONE CAPSULE BY MOUTH ONCE A DAY FOR PAIN - TAKE WITH FOOD (DME) Custom Orthotics with 5th metatarsal head offloading right foot and Orthopedic Shoes See Rx Instructions .Route .MEDSUPPLY Qty: 1 0RF Rx Instructions: Directed by [employer] mirtazapine 15 mg tablet 30 mg PO BEDTIME Eliquis 5 mg Tablet 5 mg PO BID clotrimazole 10 mg [place]aina 10 mg MUCOUS MEMBRANE 5XD hydroxyzine HCl 25 mg Tablet 25 mg PO TID PRN (Reason: UNKNOWN) azelastine 137 mcg (0.1 %) Aerosol,[place] 2 spray INTRANASAL BID fluticasone propionate 50 mcg/actuation [place],Suspension 2 spray INTRANASAL DAILY multivitamin with iron-mineral Tablet 1 tab PO DAILY tamsulosin 0.4 mg Capsule 0.4 mg PO DAILY gabapentin 100 mg Capsule 100 mg PO TID ondansetron 4 mg tablet,disintegrating 4 mg PO Q8H PRN (Reason: Nausea) diclofenac sodium 75 mg tablet,delayed release (DR/EC) 75 mg PO Q12H PRN (Reason: pain) Qty: 14 0RF methocarbamol 750 mg tablet 750 mg PO Q8H PRN (Reason: Muscle spasms and pain) Qty: 20 0RF Discharge Orders: Discharge ED (Routine); Ordered 11/28/22 Ordered By: Latrell Pennington Referrals: Chau Holloway DO [Primary Care Provider] - Discharge Diet: Usual diet Discharge Activity: Increase activity as tolerated Patient Instructions: Opioid Safety, Pain Management Activity Restrictions/Additional Instructions: Activity as tolerated. Follow-up with primary care for further instructions. Return to ED for new concerns. Coding Level of Care Code ED Linoleum Floor Installer for Leonila Aparicio
[2022-11-28] MEDS: morphine 4 mg/mL SDV 1 mL IM (20:21)
[2022-11-28] MEDS: ketorolac 30 mg/mL INJ 15 MG IM (20:21)
[2022-11-28] MEDS: HYDROcodone-acetaminophen 7.5-325 mg Tablet 2 TAB PO (20:50)
== END 2022-11-28 20:51 | disposition home or self-care (01) ==
PROVIDERS: Emergency Provider Nurse Practitioner Family; PCP Emergency Medicine Emergency Medical Services
DX: S39.012A Strain of muscle, fascia and tendon of lower back, initial encounter (principal); Z79.01 Long term (current) use of anticoagulants; E11.9 Type 2 diabetes mellitus without complications; I10 Essential (primary) hypertension; X50.1XXA Overexertion from prolonged static or awkward postures, initial encounter
CPT/HCPCS: 72100; 73502; 96372; 99284; J1885; J2270

== ENCOUNTER → 2022-12-14 10:42 | Outpatient (BNVA) | payer OTHER, SELFPAY | PROVIDERS: PCP Emergency Medicine Emergency Medical Services; Referring Provider Emergency Medicine Emergency Medical Services; Visit Provider Specialist | DX: M65.332 Trigger finger, left middle finger (principal) | CPT/HCPCS: 73130; 99214 ==

== ENCOUNTER 2023-01-06 08:34 | Day surgery (SDC) | payer OTHER, SELFPAY ==
[2023-01-05 09:17] VITALS: BMI 24.1
[2023-01-06] VITALS (7 sets, daily range): BP systolic 87–148; BP diastolic 58–87; PULSE 67–80; RESP 16–18; TEMP 36.1–36.6; O2SAT 94–99
[2023-01-06] MEDS: CELEcoxib 200 mg Capsule 400 MG PO (09:59)
[2023-01-06] MEDS: acetaminophen 1,000 MG/100 ML PIGGYBACK 400 MG IV (10:00)
[2023-01-06] MEDS: sodium chloride 0.9% 1,000 ML 30 ML IV (10:00)
--- NOTE | 2023-01-06 10:02 | W.PM.OPSUD ---
Surgery/Procedure H&P Update DATE OF PROCEDURE: January 06, 2023 DATE H&P PERFORMED: 12/14/22 H&P UPDATE INFORMATION: I have reviewed H&P completed within last 30 days, I have examined patient prior to procedure, No changes to prior documentation and [place] [facility] [place] indicated PREOP DIAGNOSIS: Left long finger triggering PLANNED PROCEDURE: Operation Date: 01/06/23 09:55 Proposed Procedures p LEFT LONG FINGER TRIGGER FINGER RELEASE [id number],M65.30(Left) - Karley Sauceda MD Related Problem List Diagnoses (1) Trigger finger, left middle finger:
--- NOTE | 2023-01-06 10:04 | W.PM.OPSUD ---
Surgery/Procedure H&P Update DATE OF PROCEDURE: January 06, 2023 DATE H&P PERFORMED: 12/14/22 H&P UPDATE INFORMATION: I have reviewed H&P completed within last 30 days, I have examined patient prior to procedure, No changes to prior documentation and H&P is in [facility] [place] on date indicated PREOP DIAGNOSIS: Left long finger triggering PLANNED PROCEDURE: Operation Date: 01/06/23 09:55 Proposed Procedures p LEFT LONG FINGER TRIGGER FINGER RELEASE [id number],M65.30(Left) - Karley Sauceda MD
[2023-01-06 10:05] LABS: Anion Gap 14.7 (5-19); Blood Urea Nitrogen 9 mg/dL (8-23); Calcium 9.3 mg/dL (8.5-10.5); Carbon Dioxide 26 mmol/L (22-29); Chloride 105 mmol/L (98-107); Glomerular Filtration Rate 112.5 mL/min (90-130); Glucose 128 mg/dL (65-115); Osmolality Calculated 294 mOsm/kg (285-295); Potassium 3.7 mmol/L (3.5-5.1); Sodium 142 mmol/L (136-145)
--- NOTE | 2023-01-06 10:17 | ANES.PREANE2 ---
Pre-Anesthetic Assessment Height/Weight: Height 1.83 m Weight 80.739 kg Temp Pulse Resp BP Pulse Ox O2 Del Method 97.4 F L 80 16 131/78 97 Room Air 01/06/23 08:57 01/06/23 08:57 01/06/23 08:57 01/06/23 08:57 01/06/23 08:57 01/06/23 09:05 Preop Diagnosis: Left long finger triggering Operation Date: 01/06/23 09:55 Proposed Procedures p LEFT LONG FINGER TRIGGER FINGER RELEASE [id number],M65.30(Left) - Karley Sauceda MD Familial anesthetic complications: none Was Beta Gregory taken within 24 hours: Yes Was Clonidine taken within 24 hours: N/A Last intake: Intake Last Liquid Date 01/05/23 Last Liquid Time 21:00 Last Solid Date 01/05/23 Last Solid Time 20:00 Social Tobacco (davis) and No alcohol Exam alert, oriented x 3, clear to auscultation bilaterally and regular rate & rhythm Airway Submandibular: within normal limits Cervical ROM: within normal limits Mallampati: Class II CV/HEM Atrial Fibrillation and Hypertension GI Gastroesophageal Reflux Disease [facility] Lower Back Pain and Osteoarthritis/DJD Neuropsych Anxiety and Depression Anesthetic Plan ASA status: 3 Anesthesia: Choice Medications/Allergies Home Medications Medication Instructions Recorded Confirmed Last Taken Type acyclovir 5 % topical cream 1 applic topical DAILY PRN Itching 10/17/19 01/05/23 07/20/20 History (Zovirax) cetirizine 10 mg tablet (Zyrtec) 10 mg PO DAILY PRN allergy symptoms 10/17/19 01/05/23 01/05/23 History diphenhydramine HCl 25 mg tablet 25 mg PO BID PRN itching 10/17/19 01/05/23 01/05/23 History (Allergy (diphenhydramine)) lactase 9,000 unit tablet 9,000 unit PO DAILY 10/17/19 01/05/23 01/05/23 History magnesium oxide 400 mg PO DAILY 10/17/19 01/05/23 01/05/23 History pantoprazole 40 mg tablet,delayed 40 mg PO DAILY 10/17/19 01/05/23 01/05/23 History release ASO ankle brace #1 ea 12/25/19 12/14/22 Unknown Rx spironolactone 25 mg tablet 25 mg PO DAILY #90 tabs 11/18/20 01/05/23 01/05/23 Rx amlodipine 5 mg tablet 5 mg PO DAILY #90 tabs 11/30/20 01/05/23 01/05/23 Rx torsemide 20 mg tablet 20 mg PO DAILY #90 tabs 12/02/20 01/05/23 04/09/21 Rx sotalol 80 mg tablet 80 mg PO DIRECTED #180 tabs 12/16/20 01/05/23 01/05/23 Rx potassium chloride 20 mEq 20 meq PO DAILY #90 tabs 12/17/20 01/05/23 01/05/23 Rx tablet,extended release azelastine 137 mcg (0.1 %) nasal 2 spray intranasal BID 04/09/21 01/05/23 01/05/23 History spray aerosol clotrimazole 10 mg robbie 10 mg mucous membrane 5XD 04/09/21 01/05/23 04/09/21 History hydroxyzine HCl 25 mg tablet 25 mg PO TID PRN UNKNOWN 04/09/21 01/05/23 01/05/23 History multivitamin with iron-mineral 1 tab PO DAILY 04/09/21 01/05/23 01/05/23 History tamsulosin 0.4 mg capsule 0.4 mg PO DAILY 04/09/21 01/06/23 Unknown History Orthopedic Shoes #1 ea 07/27/22 12/14/22 Unknown Rx Custom Orthotics #1 ea 08/09/22 12/14/22 Unknown Rx hydrocodone 5 mg-acetaminophen 325 1 tab PO Q6H PRN Pain (Scale Score 11/28/22 01/05/23 Unknown Rx mg tablet 7-10) #10 tabs celecoxib 200 mg capsule 200 mg PO DAILY 01/05/23 01/05/23 01/05/23 History Allergies Allergy/AdvReac Type Severity Reaction Status Date / Time meperidine [From Demerol] Allergy Severe ADR-Itching Verified 01/05/23 09:07 oxycodone Allergy Severe ADR-Itching Verified 01/05/23 09:07 furosemide AdvReac makes me Verified 01/05/23 09:07 feel terrible and messes with my potassium Current Medications Generic Name Dose Route Start Last Admin Trade Name Freq PRN Reason Stop Dose Admin Sodium Chloride 1,000 mls @ 30 mls/hr 01/06/23 09:00 01/06/23 10:00 Sodium Chloride 0.9% IV 01/07/23 08:59 30 mls/hr .Q24H ANTONIO Administration PFSH Anesthesia Medical History Anxiety Back pain Depressive disorder Diabetes Edema, peripheral Foraminal stenosis of cervical region Hypertension Neck pain New onset atrial fibrillation Shoulder pain, bilateral Surgical History Fusion of lumbar spine H/O shoulder surgery History of penile implant Hx of cervical spine surgery 04/[facility] Hx of cholecystectomy Status post cervical spinal fusion 07/18/2019 C3-C4 ACDFF Family History Other Cancer Paroxysmal A-fib Stroke Social History Alcohol intake: never Substance/Drug Use: current Other substance/drug use details: Occ MJ Lives independently: Yes Household members: none Marital status: Current occupational status: retired and disabled Data Anesthesia 01/06/23 09:30 BMP 01/06/23 09:30 Sodium 142 Potassium 3.7 Chloride 105 Carbon Dioxide 26 BUN 9 Creatinine 0.7 Glucose 128 H Calcium 9.3 Cardiac Studies: Echocardiogram Ultrasound 10/13/20 Sestamibi Stress Test (Cardiology) 10/14/20
[2023-01-06] MEDS: ceFAZolin 2,000 MG in sodium chloride 0.9% (plus) 50 ML 100 MG IV (11:02)
--- NOTE | 2023-01-06 12:33 | P.OP_ITS ---
Operative Report Date of procedure: January 06, 2023 Pre-op diagnosis: Left long finger triggering Post-op diagnosis: Left long finger triggering Post-op findings: Significant thickening of the A1 andi and tenosynovium Procedure done: Trigger finger release left long finger Specimens removed/disposition: None Surgeon: Karley Sauceda Drapery Inspector: None Anesthesia: MAC (ASA 3) Estimated blood loss (mL): 1 Tourniquet time (min): 18 (At 250 mmHg) IV fluids (mL): 400 Urine output (mL): 0 (No Adams) Complications: None Findings: Significant thickening of the tenosynovium and A1 andi Condition: stable Disposition: PACU (Then discharged to home after return to same-day surgery area) Brief History: Kenneth Barry is a 67 year old male patient who is here today for left hand long finger trigger release.? Patient rated pain at 6/10 in clinic.? He has had no previous treatments to the left hand long finger. While in the office, discussion was undertaken with the patient regarding risk and complications of surgical intervention. He understood and wished to proceed. Consents were signed and questions were answered. Procedure: Patient was brought to the operating theater. He was placed on the operating room table. Anesthesia was administered in the form of a MAC, and the patient tolerated this well. He was ASA 3. A tourniquet was placed high on the arm and was elevated following exsanguination of the arm. Tourniquet time was 18 minutes at 250 mmHg. Surgical pause was performed prior to commencement of the surgical procedure. At the time of the surgical pause we identified the site and side of surgery. We also identified the patient's identity and appropriate administration of IV antibiotics. Following the surgical pause, an incision was made along the distal palmar crease beneath the long finger at the level of the MCP joint. Dissection continued through the skin to the subcutaneous tissues using a scalpel. Blunt dissection was then utilized to spread soft tissues and allow access to the A1 andi. It was then incised longitudinally and sharply using a knife. This was accomplished without difficulty and atraumatically. Once the A1 andi was re leased, tendons were brought up out of the wound and evaluated. There were no gross masses on the tendons. The tendons were then returned to normal position. We then irrigated the wound and subsequently closed it with 3-0 nylon with an interrupted mattress type suture. Following closure of the wound, the wound was injected with bupivacaine plain into the subcutaneous tissues as a local anesthetic. Sterile dressing was then placed consisting of Dermabond, OpSite, fluffed fluffs, sterile soft roll, and an Taiwo wrap. The patient was returned to recovery in satisfactory condition. He will be discharged home to follow-up with me in the office. There were no complications and no specimens. Related Problem List Diagnoses (1) Trigger finger, left middle finger:
--- NOTE | 2023-01-06 14:32 | ANE.PACU2 ---
Inpatient post-anesthesia follow up: Airway intact: Yes Vital signs: Temperature 97.9 F Pulse Rate 72 Respiratory Rate 18 Blood Pressure 144/87 Pulse Oximetry 98 Oxygen Delivery Me thod Room Air Oxygen Flow Rate Fraction of Inspir ed Oxygen Hydration adequate: Yes Nausea and vomiting: No Pain level: 2 Mental status: Baseline
== END 2023-01-06 13:20 | disposition home or self-care (01) ==
PROVIDERS: Anesthesiology; PCP Emergency Medicine Emergency Medical Services; Visit Provider Specialist
PROC: (CPT 26055; principal; 2023-01-06 09:55)
DX: M65.332 Trigger finger, left middle finger (principal); I48.91 Unspecified atrial fibrillation; I10 Essential (primary) hypertension; K21.9 Gastro-esophageal reflux disease without esophagitis; F41.9 Anxiety disorder, unspecified; F32.A Depression, unspecified
CPT/HCPCS: 26055; 36415; 80048; J0131; J0690; J2704; J3010; J3490; J7030

== ENCOUNTER → 2023-01-19 10:55 | Outpatient (BNVA) | payer OTHER, SELFPAY | PROVIDERS: PCP Emergency Medicine Emergency Medical Services; Visit Provider Nurse Practitioner Family | DX: M65.332 Trigger finger, left middle finger (principal); Z98.890 Other specified postprocedural states | CPT/HCPCS: 99024 ==

== ENCOUNTER → 2023-02-20 10:54 | Outpatient (BNVA) | payer OTHER, SELFPAY | PROVIDERS: PCP Emergency Medicine Emergency Medical Services; Referring Provider Emergency Medicine Emergency Medical Services; Visit Provider Specialist | DX: M89.8X7 Other specified disorders of bone, ankle and foot (principal); L84 Corns and callosities; M21.621 Bunionette of right foot; M25.512 Pain in left shoulder; M19.012 Primary osteoarthritis, left shoulder | CPT/HCPCS: 73030; 99213; 99214 ==

== ENCOUNTER → 2023-04-26 14:07 | Outpatient (BNVA) | payer OTHER, SELFPAY | PROVIDERS: PCP Emergency Medicine Emergency Medical Services; Visit Provider Specialist | DX: M25.561 Pain in right knee (principal) | CPT/HCPCS: 73560; 73565; 99213 ==

== ENCOUNTER → 2023-05-08 09:31 | Outpatient (BNVA) | payer OTHER, SELFPAY | PROVIDERS: PCP Emergency Medicine Emergency Medical Services; Visit Provider Podiatrist Foot & Ankle Surgery | DX: L84 Corns and callosities (principal); M89.8X7 Other specified disorders of bone, ankle and foot; M21.621 Bunionette of right foot | CPT/HCPCS: 99213 ==

== ENCOUNTER 2023-05-12 10:29 | Outpatient (CLI) | payer OTHER, SELFPAY ==
--- NOTE | 2023-05-12 | CTR_ITS ---
PROCEDURE INFORMATION: Exam: CT Chest With Contrast; Diagnostic Exam date and time: 05/12/2023 12:34 PM Age: 67 years old Clinical indication: Pain and injury or trauma; Fall; Ruq; Abdominal pain; Blunt trauma (contusions or hematomas); Chest wall pain; Injury date: Last week; Prior surgery; Surgery date: 6+ months; Surgery type: Aaa, hernia, neck, l-spine, right shoulder, and penile implant. Patient HX: RT sided abd pain / anemia. States he fell last month and hit that side. ; Additional info: RT sided chest/ abdomen pain TECHNIQUE: Imaging protocol: Diagnostic computed tomography of the chest with contrast. Radiation optimization: All CT scans at this facility use at least one of these dose optimization techniques: automated exposure control; mA and/or kV adjustment per patient size (includes targeted exams where dose is matched to clinical indication); or iterative reconstruction. Contrast material: OMNI 350; Contrast volume: 100 ml; Contrast route: INTRAVENOUS (IV); REPORTING DATA: Count of CT and Cardiac NM exams in prior 12 months: This patient has received 3 known CTs and 0 known cardiac nuclear medicine studies in the 12 months prior to the current study. COMPARISON: CT abdomen pelvis w con* [id number] 10/12/2020 3:27 PM RADIATION DOSE METRICS: Total DLP (mGy-cm): 713.73 FINDINGS: Lungs: Bibasilar atelectasis versus infiltrate. Pleural spaces: Unremarkable. No pneumothorax. No pleural effusion. Heart: Unremarkable. No cardiomegaly. No pericardial effusion. Lymph nodes: Scattered subcentimeter short axis nonspecific mediastinal lymph nodes. Vasculature: Ascending thoracic aorta dilated to 3.3 cm. Bones/joints: Surgical hardware seen in the lower cervical spine. Soft tissues: Unremarkable. PROCEDURE INFORMATION: Exam: CT Abdomen And Pelvis With Contrast Exam date and time: 05/12/2023 12:34 PM Age: 67 years old Clinical indication: Pain and injury or trauma; Fall; Ruq; Abdominal pain; Blunt trauma (contusions or hematomas); Chest wall pain; Injury date: Last week; Prior surgery; Surgery date: 6+ months; Surgery type: Aaa, hernia, neck, l-spine, right shoulder, and penile implant. Patient HX: RT sided abd pain / anemia. States he fell last month and hit that side. ; Additional info: RT sided chest/ abdomen pain TECHNIQUE: Imaging protocol: Computed tomography of the abdomen and pelvis with contrast. Radiation optimization: All CT scans at this facility use at least one of these dose optimization techniques: automated exposure control; mA and/or kV adjustment per patient size (includes targeted exams where dose is matched to clinical indication); or iterative reconstruction. Contrast material: OMNI 350; Contrast volume: 100 ml; Contrast route: INTRAVENOUS (IV); REPORTING DATA: Count of CT and Cardiac NM exams in prior 12 months: This patient has received 3 known CTs and 0 known cardiac nuclear medicine studies in the 12 months prior to the current study. COMPARISON: CT abdomen pelvis w con* [id number] 10/12/2020 3:27 PM RADIATION DOSE METRICS: Total DLP (mGy-cm): 713.73 FINDINGS: Liver: Hepatic steatosis. Gallbladder and bile ducts: Cholecystectomy. Pancreas: Normal. No ductal dilation. Spleen: Normal. No splenomegaly. Adrenal glands: Bilateral adrenal hypertrophy suspected. Kidneys and ureters: Left kidney cyst, negative for follow-up advised. Stomach and bowel: Unremarkable. No obstruction. No mucosal thickening. Appendix: No evidence of appendicitis. Intraperitoneal space: Unremarkable. No free air. No significant fluid collection. Vasculature: Unremarkable. No abdominal aortic aneurysm. Lymph nodes: Unremarkable. No enlarged lymph nodes. Urinary bladder: Unremarkable as visualized. Reproductive: Unremarkable as visualized. Bones/joints: Lumbar spine surgical hardware. Soft tissues: Left deep pelvic penile implant. CT/CT chest abdpel w/*[id number] IMPRESSION: 1. Negative for traumatic injury to the chest. 2. Ascending thoracic aorta dilated to 3.3 cm. 3. Surgical hardware seen in the lower cervical spine. 4. Bibasilar atelectasis versus infiltrate. 5. Scattered subcentimeter short axis nonspecific mediastinal lymph nodes. IMPRESSION: 1. Negative for traumatic injury to the abdomen or pelvis 2. Left deep pelvic penile implant. 3. Hepatic steatosis. 4. Cholecystectomy. 5. Lumbar spine surgical hardware. 6. Left kidney cyst, negative for follow-up advised. 7. Bilateral adrenal hypertrophy suspected.
[2023-05-12] MEDS: iohexol 350 mg/mL 500 mL Btl (per mL) PO (11:02)
[2023-05-12] MEDS: iohexol 350 mg/mL 500 mL Btl (per mL) IV (12:39)
== END 2023-05-12 10:30 | disposition home or self-care (01) ==
PROVIDERS: PCP Emergency Medicine Emergency Medical Services; Visit Provider Emergency Medicine Emergency Medical Services
DX: R10.11 Right upper quadrant pain (principal); R07.89 Other chest pain; D64.9 Anemia, unspecified; W19.XXXA Unspecified fall, initial encounter; K76.0 Fatty (change of) liver, not elsewhere classified; Z90.49 Acquired absence of other specified parts of digestive tract; N28.1 Cyst of kidney, acquired; E27.8 Other specified disorders of adrenal gland
CPT/HCPCS: 71260; 74177; Q9967

== ENCOUNTER 2023-08-10 00:20 | Emergency (ER) | payer OTHER, SELFPAY ==
[2023-08-10 00:28] VITALS: BP 147/60; PULSE 62; RESP 17; TEMP 36.4; O2SAT 100; BMI 24.4
--- NOTE | 2023-08-10 00:40 | ED_ITS ---
HPI - Extremity Problem General: Chief complaint: Extremity Problem,Nontraumatic Stated complaint: Rt hand Asleep Time Seen by Provider: 08/10/23 00:24 History of Present Illness: 67-year-old male presents emergency depa rtment stating that he has had numbness and tingling to his right hand for approximately 2 months. He states he is been seen by the [facility] and has had numerous surgeries on his neck. He thinks that the numbness and tingling to his right hand is from previous surgery and he states also that he fell 2 months ago and that the tingling is continued on. He states he has seen his [facility] provider several times he is scheduled for a CT scan and states he used to take Lyrica but is out and would like a refill of his Lyrica for his neuropathy. He states it seemed to work really well and he is unable to get back to the [facility] at present to request for a refill of that. Review of Systems General: Reports: 10 or more systems reviewed and unremarkable except in HPI and below Neuro: Reports: other (Right hand paresthesias) PFSH ED PFSH: Medical History Anxiety Back pain Depressive disorder Diabetes Edema, peripheral Foraminal stenosis of cervical region Hypertension Neck pain New onset atrial fibrillation Shoulder pain, bilateral Surgical History Fusion of lumbar spine H/O shoulder surgery History of penile implant Hx of cervical spine surgery 04/2021- [facility] Hx of cholecystectomy Status post cervical spinal fusion 07/18/2019 C3-C4 ACDFF Family History Other Cancer Paroxysmal A-fib Stroke Social History Alcohol intake: never Substance/Drug Use: current Other substance/drug use details: Kayla MJ Lives independently: Yes Household members: none Marital status: Current occupational status: retired and disabled Physical Exam Narrative: EXAM NARRATIVE: Constitutional: the patient appears well nourished and with normal development. Vital signs reviewed as documented. HENMT: Normocephalic, atraumatic. Extermal ears with normal appearance without drainage. Nose without drainage, normal appearance. Mucus membranes moist. Neck is supple, No jugular venous distension, trachea is midline, no appreciable carotid bruits. No lymphadenopathy. No meningeal signs. Flexion, extension and lateral rotation is without pain. Eyes: Pupils are equal, round, reactive to light and accommodation. No scleral icterus. Extra-ocular movement are intact. Thorax is symmetrical and with equal rise and fall with respirations. Resp: Lungs are clear to auscultation. No wheezes, rales, crackles or ronchi at present. Cardio: Regular rate and rhythm. Positive S1, S2. No appreciable murmurs, rubs or gallops. GI: Abdominal exam reveals normal bowel sounds to all quadrants. No organomegaly. No obvious palpable masses noted. No hepatomegally appreciated. Soft, nontender to palpation. Extremity: Extremities are non-edematous and both femoral and pedal pulses are 2+ and equal bilaterally. Moves all extremities well, sensation in all extremities. Neuro: Alert and oriented x4, person, place, time and situation. Cranial nerves II through XII are grossly intact, there is no focal neurological deficits that I can appreciate at present. Motor strength in the upper and lower extremities are equal and bilateral 5/5. Psych: Cooperative, calm, normal thought process, appropriate judgment. Skin: No lesions, rashes. No gross abnormalities noted. Back: Symmetrical, no obvious deformity, No CVA tenderness Course Vital Signs: Vital signs: Vital Signs Temperature 97.6 F 08/10/23 00:28 Pulse Rate 62 08/10/23 00:28 Respiratory Rate 17 08/10/23 00:28 Blood Pressure 147/60 08/10/23 00:28 Pulse Oximetry 100 08/10/23 00:28 Oxygen Delivery Me thod Room Air 08/10/23 00:28 MDM - Extremity (Nontraumatic) Medical Decision Making Physical exam completed and documented, I will provide the patient a written prescription for Lyrica and continue to have him follow-up with his [facility] and keep his scheduled CT scan/MRI scan appointment as previously scheduled for him. Medical Records I reviewed the patient's medical records. No radiology studies performed this visit Discharge Plan Discharge Patient Disposition: Home Clinical Impression: Neuropathic pain of right hand Condition: Stable Prescriptions: New Lyrica 25 mg capsule 25 mg PO DAILY Qty: 30 0RF No Action (DME) ASO ankle brace Qty: 1 0RF Rx Instructions: As directed magnesium oxide 400 mg magnesium capsule 400 mg PO DAILY pantoprazole 40 mg tablet,delayed release (DR/EC) 40 mg PO DAILY lactase 9,000 unit tablet 9,000 unit PO DAILY cetirizine [Zyrtec] 10 mg tablet 10 mg PO DAILY PRN (Reason: allergy symptoms) diphenhydramine HCl [Allergy (diphenhydramine)] 25 mg tablet 25 mg PO BID PRN (Reason: itching) acyclovir [Zovirax] 5 % cream 1 applic TOPICAL DAILY PRN (Reason: Itching) (DME) Orthopedic Shoes See Rx Instructions .Route .MEDSUPPLY Qty: 1 0RF Rx Instructions: As directed ammonium lactate 12 % lotion 1 applic topical BID Qty: 400 4RF spironolactone 25 mg tablet 25 mg PO DAILY Qty: 90 3RF amlodipine 5 mg tablet 5 mg PO DAILY Qty: 90 3RF torsemide 20 mg tablet 20 mg PO DAILY Qty: 90 3RF sotalol 80 mg tablet 80 mg PO DIRECTED Qty: 180 2RF Rx Instructions: take 1 tab every morning and 1/2 tab every evening potassium chloride 20 mEq tablet extended release 20 meq PO DAILY Qty: 90 1RF (DME) Custom Orthotics with 5th metatarsal head offloading right foot and Orthopedic Shoes See Rx Instructions .Route .MEDSUPPLY Qty: 1 0RF Rx Instructions: Directed by [facility] diazepam [Valium] 5 mg tablet 5 mg PO BID Qty: 2 0RF Rx Instructions: Take 1 tablet 1 hour before MRI and take second tablet if needed 30 min. before MRI. diazepam [Valium] 5 mg tablet 5 mg PO .COMPLEX PRN (Reason: anxiety) Qty: 2 0RF Rx Instructions: Take 1 tablet 1 hour prior to MRI, you may repeat times one 1/2-hour prior to MRI. clotrimazole 10 mg Taina 10 mg MUCOUS MEMBRANE 5XD hydroxyzine HCl 25 mg Tablet 25 mg PO TID PRN (Reason: UNKNOWN) azelastine 137 mcg (0.1 %) Aerosol,[place] 2 spray INTRANASAL BID multivitamin with iron-mineral Tablet 1 tab PO DAILY tamsulosin 0.4 mg Capsule 0.4 mg PO DAILY hydrocodone-acetaminophen 5-325 mg tablet 1 tab PO Q6H PRN (Reason: Pain (Scale Score 7-10)) Qty: 10 0RF celecoxib 200 mg capsule 200 mg PO DAILY Rx Instructions: TAKE ONE CAPSULE BY MOUTH ONCE A DAY FOR PAIN - TAKE WITH FOOD Discharge Orders: Discharge ED (Routine); Ordered 08/10/23 Ordered By: Kp Branham Referrals: Chau Holloway, [Primary Care Provider] - Discharge Diet: Advance as tolerated Discharge Activity: Resume usual activity Patient Instructions: Opioid Safety, Pain Management Activity Restrictions/Additional Instructions: Activity Restrictions/Additional Instructions: Thank you for choosing [facility] for your healthcare needs today. Please realize that you were seen in the Emergency Department and that we are providing you with an emergency medical screening exam and this may not be a complete and all inclusive of all the testing and or medical work-up that you may need to determine your ailment or severity of your illness. It is very important that you follow-up as instructed with your Primary care provider or Specialist for additional evaluation and to discuss your medical treatment plan. You may return to the Emergency Department should you have concerns or if your condition changes or worsens in any way. Coding Level of Care Code ED Footwear Stitcher for Leonila Aparicio
== END 2023-08-10 00:58 | disposition home or self-care (01) ==
PROVIDERS: Emergency Provider Internal Medicine; PCP Emergency Medicine Emergency Medical Services
DX: E11.40 Type 2 diabetes mellitus with diabetic neuropathy, unspecified (principal); M79.641 Pain in right hand; I10 Essential (primary) hypertension
CPT/HCPCS: 99283

== ENCOUNTER 2023-09-08 13:22 | Outpatient (CLI) | payer OTHER, SELFPAY ==
--- NOTE | 2023-09-08 13:28 | CT_ITS ---
WS: [id number] CT CERVICAL SPINE TECHNIQUE: Noncontrast CT of the cervical spine with coronal and sagittal reformatted images. CLINICAL INFORMATION: NECK PAIN COMPARISON: CT 2021 DLP: 222.[address] scans at [facility] use at least one of these dose optimization techniques: automated e xposure control; mA and/or kV adjustment per patient size (includes targeted exams where dose is matc hed to clinical indication); or iterative reconstruction. FINDINGS: Beam Oneill artifact from extensive hardware degrades some images. Straightening with slight reversal the normal cervical lordosis. Slight anterolisthesis C5 on C6. ACD F C3-4. Dorsal vince and screw fixation C2-T1. Fracture of the LEFT T1 pedicle screw. This is nondispla diana. This appears new since 2021. C2-C3: Mild facet arthropathy. Spinal canal and foramen are patent. C3-C4: Mild facet arthropathy. Moderate bilateral bony foraminal narrowing. Spinal canal is patent. C4-C5: Advanced facet arthropathy. Moderate bilateral bony foraminal narrowing LEFT greater than RIGH T. Spinal canal is patent. C5-C6: Slight anterolisthesis C5 on C6. Disc osteophytic ridging with mild LEFT greater than RIGHT [place] foraminal narrowing. Moderate facet arthropathy. Spinal canal is patent. C6-C7: Disc osteophytic ridging. Moderate LEFT and no significant RIGHT foraminal narrowing. Spinal c anal is patent. C7-T1: Mild to moderate LEFT and no significant RIGHT foraminal narrowing. Spinal canal is patent. Visualized posterior nasopharynx: Normal. Prevertebral soft tissues: Normal. Azygos fissure in the RIGHT upper lobe. IMPRESSION: 1. Fracture of the LEFT T1 pedicle screw is new compared to previous. Interconnecting rods appear in tact. 2. Straightening with slight reversal normal cervical lordosis. ACDF C3-C4 with interbody fusion gra ft. Dorsal pedicle screw fixation with interconnecting rods. 3. Multilevel mild to moderate bony foraminal narrowing with facet arthropathy described above. 4. Spinal canal is patent.
== END 2023-09-08 13:23 | disposition home or self-care (01) ==
LOC: RAD 13:22
PROVIDERS: PCP Emergency Medicine Emergency Medical Services; Visit Provider Emergency Medicine Emergency Medical Services
DX: T84.216A Breakdown (mechanical) of internal fixation device of vertebrae, initial encounter (principal); Y79.3 Surgical instruments, materials and orthopedic devices (including sutures) associated with adverse incidents; M47.812 Spondylosis without myelopathy or radiculopathy, cervical region; M48.02 Spinal stenosis, cervical region
CPT/HCPCS: 72125

== ENCOUNTER → 2023-11-21 13:53 | Outpatient (BNVA) | payer OTHER, SELFPAY | PROVIDERS: PCP Emergency Medicine Emergency Medical Services; Referring Provider Emergency Medicine Emergency Medical Services; Visit Provider Specialist | DX: G56.03 Carpal tunnel syndrome, bilateral upper limbs (principal); G56.91 Unspecified mononeuropathy of right upper limb; M75.41 Impingement syndrome of right shoulder; M65.331 Trigger finger, right middle finger; S49.90XA Unspecified injury of shoulder and upper arm, unspecified arm, initial encounter; X58.XXXA Exposure to other specified factors, initial encounter; R20.0 Anesthesia of skin | CPT/HCPCS: 95910; 95911 ==

== ENCOUNTER → 2023-11-23 16:46 | Outpatient (BNVA) | payer OTHER, SELFPAY | PROVIDERS: PCP Emergency Medicine Emergency Medical Services; Visit Provider Specialist | DX: G62.89 Other specified polyneuropathies (principal); R20.0 Anesthesia of skin; M79.604 Pain in right leg; M79.605 Pain in left leg | CPT/HCPCS: 95908; 95910 ==

== ENCOUNTER → 2023-12-05 14:05 | Outpatient (BNVA) | payer OTHER, SELFPAY | PROVIDERS: PCP Emergency Medicine Emergency Medical Services; Visit Provider Dermatology | DX: L28.0 Lichen simplex chronicus (principal); L21.8 Other seborrheic dermatitis; L85.3 Xerosis cutis | CPT/HCPCS: 99204 ==

== ENCOUNTER 2024-01-01 12:27 | Outpatient (CLI) | payer OTHER, SELFPAY ==
--- NOTE | 2024-01-01 12:33 | CT_ITS ---
WS: [id number] CT LUMBAR SPINE, noncontrast. HISTORY: BACK PAIN TECHNIQUE: Contiguous 2.0 mm axial imaging are performed. Sagittal and coronal reformats are submitte d and reviewed. All CT scans at [facility] use at least one of these dose optimization techni ques: automated exposure control; mA and/or kV adjustment per patient size (includes targeted exams w here dose is matched to clinical indication); or iterative reconstruction. IV contrast: None DLP: 723.00 mGy.cm COMPARISON: None available. Prior posterior lumbar fusion extending from L2-S2. Vertical rods and pedicle screws appear to be int act. No fractures are identified. Interbody disc spacers are noted at L3-4, L4-5 and L5-S1. L1-2: Marked annular disc bulging with bilateral foraminal disc protrusions. Ligamentum flavum hypert rophy. Central canal appears stenotic. There is at least moderate central, bilateral subarticular rec ess and foraminal stenosis. L2-3: Diffuse annular disc bulging with marked facet hypertrophy. Facet joint encroaches upon the for lidia. Mild central and bilateral subarticular recess stenosis. At least moderate foraminal stenosis. L3-4: Diffuse annular disc bulging with osteophytic ridging. Large laminectomy defect. L4-5: Diffuse annular disc bulging with osteophytic ridging. Extensive hardware artifact. Large radha ectomy defect. Mild bilateral foraminal stenosis. L5-S1: Extensive hardware artifact. Osteophytic ridging. Large central laminectomy defect. Moderate R IGHT and mild LEFT foraminal stenosis predominately due to osteophyte disease. Small LEFT adrenal adenoma. CT/CT lumbar spine wo con* [id number] IMPRESSION: 1. Status post L2-S2 lumbar fusion. Interbody spacers at L3-4, L4-5 and L5-S1. 2. Large posterior laminectomy defects from L3-L5. 3. L1-2: Moderate central with bilateral subarticular recess and foraminal vasquez nosis. Combination of disc and osteophyte disease. Bilateral foraminal disc pro trusions. 4. L2-3: Mild central and bilateral subarticular recess and moderate foraminal stenosis. 5. L5-S1: Moderate RIGHT and mild LEFT foraminal stenosis due to osteophyte.
== END 2024-01-01 12:28 | disposition home or self-care (01) ==
LOC: RAD 12:27
PROVIDERS: PCP Emergency Medicine Emergency Medical Services; Visit Provider Emergency Medicine Emergency Medical Services
DX: M43.26 Fusion of spine, lumbar region (principal); M48.061 Spinal stenosis, lumbar region without neurogenic claudication; M48.07 Spinal stenosis, lumbosacral region
CPT/HCPCS: 72131

== ENCOUNTER → 2024-01-15 14:16 | Outpatient (BNVA) | payer OTHER, SELFPAY | PROVIDERS: PCP Emergency Medicine Emergency Medical Services; Visit Provider Nurse Practitioner Family | DX: A60.9 Anogenital herpesviral infection, unspecified (principal); L30.9 Dermatitis, unspecified | CPT/HCPCS: 54100; 99213 ==

== ENCOUNTER → 2024-02-22 11:30 | Outpatient (BNVA) | payer OTHER, SELFPAY | PROVIDERS: PCP Emergency Medicine Emergency Medical Services; Visit Provider Nurse Practitioner Family | DX: L43.8 Other lichen planus (principal); B18.2 Chronic viral hepatitis C; L57.8 Other skin changes due to chronic exposure to nonionizing radiation | CPT/HCPCS: 99213 ==

== ENCOUNTER 2024-02-23 13:39 | Outpatient (CLI) | payer OTHER, SELFPAY ==
[2024-02-24 14:38] LABS: HEP C RNA Viral Load Quant <1.18 NOT DETECTED Log IU/mL (NOT DETECTED); HEP C RNA Viral Load Quant <15 NOT DETECTED IU/mL (NOT DETECTED)
== END 2024-02-23 13:40 | disposition home or self-care (01) ==
LOC: LAB 13:40
PROVIDERS: PCP Emergency Medicine Emergency Medical Services; Visit Provider Nurse Practitioner Family
DX: L43.8 Other lichen planus (principal); B18.2 Chronic viral hepatitis C
CPT/HCPCS: 87522

== ENCOUNTER → 2024-06-25 08:57 | Outpatient (BNVA) | payer OTHER, SELFPAY | PROVIDERS: PCP Emergency Medicine Emergency Medical Services; Visit Provider Nurse Practitioner Family | DX: B07.8 Other viral warts (principal); L43.8 Other lichen planus; B00.1 Herpesviral vesicular dermatitis; L82.1 Other seborrheic keratosis; B81.4 Mixed intestinal helminthiases; L57.8 Other skin changes due to chronic exposure to nonionizing radiation | CPT/HCPCS: 17110; 99214 ==

== ENCOUNTER → 2024-09-24 08:46 | Outpatient (BNVA) | payer OTHER, SELFPAY | PROVIDERS: PCP Emergency Medicine Emergency Medical Services; Visit Provider Nurse Practitioner Family | DX: S00.00XA Unspecified superficial injury of scalp, initial encounter (principal); X58.XXXA Exposure to other specified factors, initial encounter; L81.4 Other melanin hyperpigmentation; L57.8 Other skin changes due to chronic exposure to nonionizing radiation; L82.1 Other seborrheic keratosis; B07.8 Other viral warts; Z78.9 Other specified health status; R20.8 Other disturbances of skin sensation; L53.8 Other specified erythematous conditions | CPT/HCPCS: 17110; 99214 ==

== ENCOUNTER → 2024-10-22 13:56 | Outpatient (BNVA) | payer OTHER, SELFPAY | PROVIDERS: PCP Emergency Medicine Emergency Medical Services; Visit Provider Nurse Practitioner Family | DX: L21.8 Other seborrheic dermatitis (principal); L57.8 Other skin changes due to chronic exposure to nonionizing radiation; L81.4 Other melanin hyperpigmentation; B07.8 Other viral warts; Z78.9 Other specified health status; R20.8 Other disturbances of skin sensation; L53.8 Other specified erythematous conditions | CPT/HCPCS: 17110; 99214 ==

== ENCOUNTER → 2024-10-29 09:49 | Outpatient (BNVA) | payer OTHER, SELFPAY | PROVIDERS: PCP Emergency Medicine Emergency Medical Services; Visit Provider Podiatrist Foot & Ankle Surgery | DX: M79.671 Pain in right foot (principal); L84 Corns and callosities; M21.621 Bunionette of right foot | CPT/HCPCS: 73630; 99213 ==

== ENCOUNTER 2024-11-25 08:40 | Outpatient (CLI) | payer OTHER, SELFPAY ==
--- NOTE | 2024-11-25 08:48 | CT_ITS ---
WS: [id number] CT RIGHT SHOULDER, NONCONTRAST HISTORY: RIGHT SHOULDER PAIN, surgery 3 years ago. Technique: All CT scans at [facility] use at least one of these dose optimization techniques: automated exposure control; mA and/or kV adjustment per patient size (includes targeted exams where dose is matched to clinical indication); or iterative reconstruction. DLP: 335.43 mGy.cm COMPARISON: None available. Total RIGHT shoulder replacement. Hardware appears to be in appropriate position. No fractures are identified by CT. Glenohumeral joint is difficult to visualize due to the hardware and artifact. No lucency is evident surrounding the screws associated with the glenoid prosthesis. No fracture or loose body. Severe supraspinatus and subscapularis muscle atrophy with fatty replacement. No joint effusion or fluid surrounding the prosthesis. Upper lung ramos are clear. Visualized cervical and thoracic vertebral bodies are osteopenic. CT/CT shoulder RT wo con* [id number] IMPRESSION: 1. Status post RIGHT total shoulder replacement. 2. No hardware fracture or malalignment identified. 3. No joint effusion or loose body. 4. Severe atrophy of the supraspinatus and subscapularis muscles.
== END 2024-11-25 08:41 | disposition home or self-care (01) ==
PROVIDERS: PCP Nurse Practitioner Family; Visit Provider Nurse Practitioner Family
DX: M62.511 Muscle wasting and atrophy, not elsewhere classified, right shoulder (principal); Z98.890 Other specified postprocedural states; M85.88 Other specified disorders of bone density and structure, other site
CPT/HCPCS: 73200

== ENCOUNTER → 2024-12-02 09:50 | Outpatient (BNVA) | payer OTHER, SELFPAY | PROVIDERS: PCP Nurse Practitioner Family; Visit Provider Nurse Practitioner Family | DX: L57.8 Other skin changes due to chronic exposure to nonionizing radiation (principal); L81.4 Other melanin hyperpigmentation; L21.8 Other seborrheic dermatitis; B07.8 Other viral warts; L29.89 Other pruritus; L53.8 Other specified erythematous conditions; Z78.9 Other specified health status | CPT/HCPCS: 17110; 99213 ==

== ENCOUNTER 2024-12-18 13:02 | Outpatient (CLI) | payer OTHER, SELFPAY ==
--- NOTE | 2024-12-18 13:05 | US_ITS ---
WS: [id number] TESTICULAR ULTRASOUND HISTORY: TESTICLE PAIN COMPARISON: 06/07/2017 TECHNIQUE: Real-time and color Doppler imaging utilized to perform a testicular ultrasound. Right testicle: 4.2 cm x 2.9 cm x 2.3 cm. Normal size and echogenicity. No mass or torsion. Normal color Doppler is present throughout. Systolic and diastolic velocities are both present. No significant hydrocele. Right epididymis: Normal vascularity within the epididymis. There is a small amount of fluid adjacent to the epididymis. Left testicle: 4.5 cm x 2.5 cm x 2.1 cm. Normal size and echogenicity. No mass or torsion. Normal color Doppler is present throughout. Systolic and diastolic velocities are both present. No significant hydrocele. Left epididymis: Normal epididymis with no increased vascularity. US/US scrotum [id number] IMPRESSION: 1. No testicular mass or torsion. 2. Normal vascularity within each testicle. 3. Very small amount of fluid adjacent to the RIGHT epididymis.
--- NOTE | 2024-12-18 13:05 | US_ITS ---
WS: [email or web address] RENAL ULTRASOUND HISTORY: R FLANK PAIN COMPARISON: 03/11/2019 TECHNIQUE: 2-D and color Doppler imaging of the kidney submitted. Right kidney: 11.7 cm x 4.8 cm x 5.2 cm. Cortex: 1.3 cm Normal size kidney with no hydronephrosis. Cortical cyst mid kidney 1.5 x 1.2 x 1.3 cm. No solid mass. Left kidney: 12.0 cm x 3.6 cm x 4.9 cm. Cortex: 1.2 cm Normal size kidney with no hydronephrosis. Central pelvic cyst extends into the cortex has increased in size since the prior ultrasound. Cyst in the mid mid renal pelvis measures 1.7 x 1.3 x 1.4 cm. Aorta: Normal. Urinary Bladder: Normally distended bladder with mild wall thickening. Prostate gland is enlarged. US/US renal BI* [id number] IMPRESSION: 1. No renal atrophy or cortical thinning. 2. No renal obstruction. 3. Bilateral renal cysts. RIGHT renal cyst is new and the LEFT renal cyst is s table since 2019.
== END 2024-12-18 13:03 | disposition home or self-care (01) ==
PROVIDERS: PCP Nurse Practitioner Family; Visit Provider Nurse Practitioner Family
DX: N50.819 Testicular pain, unspecified (principal); R10.9 Unspecified abdominal pain; R93.89 Abnormal findings on diagnostic imaging of other specified body structures; N28.1 Cyst of kidney, acquired; N32.89 Other specified disorders of bladder; N40.0 Benign prostatic hyperplasia without lower urinary tract symptoms
CPT/HCPCS: 76770; 76870

== ENCOUNTER → 2024-12-30 09:51 | Outpatient (BNVA) | payer OTHER, SELFPAY | PROVIDERS: PCP Nurse Practitioner Family; Visit Provider Podiatrist Foot & Ankle Surgery | DX: L84 Corns and callosities (principal); M21.621 Bunionette of right foot | CPT/HCPCS: 99213 ==

== ENCOUNTER 2025-01-07 16:15 | Outpatient (CLI) | payer OTHER, SELFPAY ==
--- NOTE | 2025-01-07 16:25 | CTR_ITS ---
PROCEDURE INFORMATION: Exam: CT Abdomen And Pelvis Without And With Contrast Exam date and time: 01/07/2025 4:52 PM Age: 69 years old Clinical indication: Abdominal pain; Generalized; Additional info: Right flank pain, HX of nephrolithiasis TECHNIQUE: Imaging protocol: Computed tomography of the abdomen and pelvis without and with contrast. 3D rendering (Not supervised by radiologist): MIP and/or 3D reconstructed images were created by the technologist. Radiation optimization: All CT scans at this facility use at least one of these dose optimization techniques: automated exposure control; mA and/or kV adjustment per patient size (includes targeted exams where dose is matched to clinical indication); or iterative reconstruction. Contrast material: OMNIPAQUE 350; Contrast volume: 100 ml; Contrast route: INTRAVENOUS (IV); COMPARISON: CT abdomen pelvis w con* [id number] 10/12/2020 3:27 PM RADIATION DOSE METRICS: Total DLP (mGy-cm): 1215.48 FINDINGS: Lungs: There is parenchymal scar with surgical sutures at the left lung base, stable. Visualized lung bases are otherwise clear. Liver: Unremarkable. Gallbladder and biliary ducts: Surgically absent. No significant biliary ductal dilatation. Pancreas: Moderate fatty atrophy, stable. Spleen: There are several tiny calcified granulomata within the spleen. Adrenal glands: A 12 mm hypodense left adrenal nodule is again seen compatible with an adenoma. The right adrenal gland appears slightly thickened without a discrete nodule seen. Kidneys and ureters: No renal or ureteral calculi are detected. Small bilateral renal cysts are again seen, stable. No significant hydronephrosis. Stomach and bowel: The stomach is poorly distended on this exam with thickening of the wall likely due to incomplete distension. Bowel loops are normal in caliber. No evidence for obstruction. No significant mucosal thickening. Appendix: No evidence of appendicitis. Intraperitoneal space: No significant free fluid. No free air. Vasculature: The abdominal aorta is normal in caliber. Mild atherosclerotic calcification is noted. No abdominal aortic aneurysm. Lymph nodes: Unremarkable. No enlarged lymph nodes. Urinary bladder: Unremarkable as visualized. Reproductive: The prostate gland is mildly enlarged with central calcifications noted. A penile prosthesis is present with a reservoir in the left hemipelvis. Bones/joints: Intact. No acute fracture. There are extensive postsurgical changes throughout the lumbar spine with orthopedic hardware from L2 through S1. Diffuse degenerative changes are noted. Soft tissues: Unremarkable. CT/CT abdomen pelvis wo/w [id number] IMPRESSION: 1. No acute intra-abdominal or pelvic process appreciated. 2. Chronic findings described above.
[2025-01-07 16:47] LABS: Blood Urea Nitrogen 17 mg/dL (8-23); Glomerular Filtration Rate 95.8 mL/min (90-130)
[2025-01-07] MEDS: iohexol 350 mg/mL 500 mL Btl (per mL) IV (16:54)
== END 2025-01-07 16:16 | disposition home or self-care (01) ==
PROVIDERS: PCP Nurse Practitioner Family; Visit Provider Nurse Practitioner Family
DX: L57.8 Other skin changes due to chronic exposure to nonionizing radiation (principal); L81.4 Other melanin hyperpigmentation; L21.8 Other seborrheic dermatitis; I87.2 Venous insufficiency (chronic) (peripheral); B07.8 Other viral warts; L29.89 Other pruritus; L53.8 Other specified erythematous conditions; Z78.9 Other specified health status
CPT/HCPCS: 17110; 74178; 82565; 84520; 99214

== ENCOUNTER 2025-01-16 07:46 | Outpatient (CLI) | payer OTHER, SELFPAY ==
--- NOTE | 2025-01-16 07:56 | MR_ITS ---
WS: [email or web address] MRI RIGHT KNEE HISTORY: INTERNAL DERANGEMENT OF R KNEE COMPARISON: None available. Anterior cruciate ligament: Intermediate striations throughout the ACL. Intrasubstance degeneration but no tear. Posterior cruciate ligament: Intact. Medial collateral ligament: Intact. Posterior lateral corner structures: Intact. Medial menisci: Intact. Normal signal, size and shape. Lateral meniscus: Intact. Normal signal, size and shape. Extensor mechanism: Distal quadriceps tendon and patellar tendons are intact. Fluid and soft tissue: Small suprapatellar joint effusion. No Mcdonald's cyst. Osseous and articular structures: Patellofemoral compartment: Mild narrowing of the patellofemoral joint space. Mild loss of cartilage along the medial patellar facet with underlying marrow edema. Medial compartment: Minimal narrowing of the medial compartment. Cartilage is intact. Small marginal osteophytes. Lateral compartment: No significant narrowing. Cartilage is intact. No fracture or marrow edema. Increased signal and thickening of the proximal medial head of the gastrocnemius along the medial femoral epicondylar region. Small amount of fluid extending along the tendon but there is no full-thickness tear. Suspect partial avulsion of the medial head of the gastrocnemius from the femoral condyle. There is also underlying focal marrow edema at this site. MR/MR knee RT wo con* [id number] IMPRESSION: 1. Signal abnormality within the proximal medial head of the gastrocnemius michael ng the posterior medial femoral condyle. Suspect tendinopathy with at least a p artial avulsion of the medial head of the gastrocnemius. 2. There is associated bone marrow edema in the posterior medial femoral condy le at the site of the gastrocnemius tendon signal abnormality. 3. Intrasubstance degeneration throughout the ACL but no tear.
== END 2025-01-16 07:47 | disposition home or self-care (01) ==
PROVIDERS: PCP Nurse Practitioner Family; Visit Provider Orthopaedic Surgery
DX: M22.2X1 Patellofemoral disorders, right knee (principal); R93.6 Abnormal findings on diagnostic imaging of limbs; R60.0 Localized edema; M25.461 Effusion, right knee; M25.761 Osteophyte, right knee
CPT/HCPCS: 73721

== ENCOUNTER → 2025-02-05 11:56 | Outpatient (BNVA) | payer OTHER, SELFPAY | PROVIDERS: PCP Nurse Practitioner Family; Visit Provider Internal Medicine Cardiovascular Disease | DX: I48.91 Unspecified atrial fibrillation (principal); R55 Syncope and collapse; R07.9 Chest pain, unspecified; I12.9 Hypertensive chronic kidney disease with stage 1 through stage 4 chronic kidney disease, or unspecified chronic kidney disease; N18.9 Chronic kidney disease, unspecified; F41.1 Generalized anxiety disorder; R53.1 Weakness; R06.09 Other forms of dyspnea; Z79.01 Long term (current) use of anticoagulants; I48.92 Unspecified atrial flutter | CPT/HCPCS: 93005; 99204 ==

== ENCOUNTER → 2025-03-25 14:11 | Outpatient (BNVA) | payer OTHER, SELFPAY | PROVIDERS: PCP Nurse Practitioner Family; Visit Provider Podiatrist Foot & Ankle Surgery | DX: Q82.8 Other specified congenital malformations of skin (principal); M21.621 Bunionette of right foot | CPT/HCPCS: 17110 ==

== ENCOUNTER → 2025-04-07 15:31 | Outpatient (BNVA) | payer OTHER, SELFPAY | PROVIDERS: PCP Nurse Practitioner Family; Visit Provider Internal Medicine Cardiovascular Disease | DX: R07.9 Chest pain, unspecified (principal); I48.91 Unspecified atrial fibrillation | CPT/HCPCS: 93005; 99214 ==

== ENCOUNTER → 2025-04-22 15:05 | Outpatient (BNVA) | payer OTHER, SELFPAY | PROVIDERS: PCP Nurse Practitioner Family; Visit Provider Podiatrist Foot & Ankle Surgery | DX: Q82.8 Other specified congenital malformations of skin (principal); L84 Corns and callosities; M21.621 Bunionette of right foot | CPT/HCPCS: 17110 ==

== ENCOUNTER → 2025-04-29 09:03 | Outpatient (BNVA) | payer OTHER, SELFPAY | PROVIDERS: PCP Nurse Practitioner Family; Visit Provider Nurse Practitioner Family | DX: L21.8 Other seborrheic dermatitis (principal); I87.2 Venous insufficiency (chronic) (peripheral); L81.4 Other melanin hyperpigmentation; L57.8 Other skin changes due to chronic exposure to nonionizing radiation; B07.8 Other viral warts; L29.89 Other pruritus; L53.8 Other specified erythematous conditions; Z78.9 Other specified health status; L82.0 Inflamed seborrheic keratosis | CPT/HCPCS: 17110; 99214 ==

== ENCOUNTER → 2025-06-18 15:51 | Outpatient (BNVA) | payer OTHER, SELFPAY | PROVIDERS: PCP Nurse Practitioner Family; Visit Provider Nurse Practitioner Family | DX: B07.8 Other viral warts (principal); L29.89 Other pruritus; L53.8 Other specified erythematous conditions; Z78.9 Other specified health status | CPT/HCPCS: 17110 ==

== ENCOUNTER → 2025-06-24 14:39 | Outpatient (BNVA) | payer OTHER, SELFPAY | PROVIDERS: PCP Nurse Practitioner Family; Visit Provider Podiatrist Foot & Ankle Surgery | DX: Q82.8 Other specified congenital malformations of skin (principal); M21.621 Bunionette of right foot; L84 Corns and callosities | CPT/HCPCS: 17110; 99213 ==

== ENCOUNTER → 2025-07-08 12:42 | Outpatient (BNVA) | payer OTHER, SELFPAY | PROVIDERS: PCP Nurse Practitioner Family; Visit Provider Nurse Practitioner Family | DX: L57.8 Other skin changes due to chronic exposure to nonionizing radiation (principal); B07.8 Other viral warts; L29.89 Other pruritus; L53.8 Other specified erythematous conditions; Z78.9 Other specified health status; L82.0 Inflamed seborrheic keratosis | CPT/HCPCS: 17110; 99212 ==

== ENCOUNTER → 2025-07-28 11:26 | Outpatient (BNVA) | payer OTHER, SELFPAY | PROVIDERS: PCP Nurse Practitioner Family; Visit Provider Nurse Practitioner Family | DX: L57.8 Other skin changes due to chronic exposure to nonionizing radiation (principal); B07.8 Other viral warts; L29.89 Other pruritus; L53.8 Other specified erythematous conditions; Z78.9 Other specified health status | CPT/HCPCS: 17110; 99213 ==

== ENCOUNTER → 2025-08-05 14:37 | Outpatient (BNVA) | payer OTHER, SELFPAY | PROVIDERS: PCP Nurse Practitioner Family; Visit Provider Podiatrist Foot & Ankle Surgery | DX: M21.621 Bunionette of right foot (principal); L84 Corns and callosities; Q82.8 Other specified congenital malformations of skin | CPT/HCPCS: 99213 ==

== ENCOUNTER → 2025-08-18 11:31 | Outpatient (BNVA) | payer OTHER, SELFPAY | PROVIDERS: PCP Nurse Practitioner Family; Visit Provider Nurse Practitioner Family | DX: L57.8 Other skin changes due to chronic exposure to nonionizing radiation (principal); L81.4 Other melanin hyperpigmentation; B07.8 Other viral warts | CPT/HCPCS: 17110; 99213 ==